=== PATIENT | male | born 1945 | race Caucasian/White ===

== ENCOUNTER 2017-09-14 17:01 | Emergency (ER) | payer MEDICARE, OTHER ==
[2017-09-14] MEDS ORDERED: Diltiazem IV* 5 MG/ML 5 ML VIAL (for loading dose/IV Push) (25 MG) IV PUSH ONE (17:46)
[2017-09-14] MEDS ORDERED: Aspirin TAB* 325 MG PO ONE (17:48)
[2017-09-14] MEDS ORDERED: Aspirin EC TAB* 81 MG TAB.EC ONE (17:55)
[2017-09-14] MEDS ORDERED: Aspirin EC TAB* 81 MG TAB.EC PO ONE (17:56)
[2017-09-14 18:07] LABS: ABS Basophils 0.1 10^3/ul (0-0.2); ABS Eosinophils 0.1 10^3/ul (0-0.6); ABS Monocytes 0.7 10^3/ul (0-0.8); ABS Neutrophils 5.7 10^3/ul (1.5-7.7); ABS Nucleated RBC 0 10^3/ul; Eosinophil % 1.5 % (0-6); Hematocrit 45 % (42-52); Hemoglobin 15.4 g/dl (14.0-18.0); Lymphocyte % 23.1 % (25-47); Mean Corpuscular HGB Conc 34 g/dl (31-36); Mean Corpuscular Hemoglobin 31 pg (27-31); Mean Corpuscular Volume 92 fL (80-94); Nucleated Red Blood Cells % 0.1; Platelet Count 165 10^3/ul (150-450); Red Blood Count 4.91 10^6/ul (4.00-5.40); Red Cell Distribution Width 14 % (10.5-15); White Blood Count 8.6 10^3/ul (3.5-10.8)
--- NOTE | 2017-09-14 18:10 | RAD ---
Indication: Shortness of breath. Palpitations. Comparison: February 10, 2013 CT. Technique: Upright AP 1755 hours Report: Elevated lung volumes. Small chronic RIGHT superior pleural plaque noted based on correlation with prior CT. No pulmonary infiltrate, suspicious focal pulmonary lesion, pleural effusion, pneumothorax. The heart, pulmonary vasculature, and mediastinal contours are unremarkable. IMPRESSION: Elevated lung volumes suggest potential obstructive lung disease. No acute cardiopulmonary process evident.
[2017-09-14 18:15] LABS: INR 0.97 (0.77-1.02)
[2017-09-14 18:28] LABS: EGFR Non-African American 79.3 (>60)
[2017-09-14] MEDS ORDERED: Metoprolol Tartrate TAB* 25 MG PO ONE ×2 (19:45→21:21)
[2017-09-14] MEDS ORDERED: Rivaroxaban TAB(*) 10 MG PO ONE (19:46)
--- NOTE | 2017-09-14 21:24 | ED ---
Satnam Chowdary Simon, scribed for Sridhar Deleon on 09/14/17 at 1820 . Palpitations / Dysrhythmia - HPI Summary HPI Summary: This patient is a 72 year old M presenting to [facility] with a chief complaint palpitations since 3 months ago. PMHx AL 14 years ago, 1 stent placed. Pt went to PCP for check-up, sent him to ED for sx. He denies edema, intermittent SOB with exertion. Pt denies recent stress test. Social Hx smoking, drinking. - History of Current Complaint Chief Complaint: EDDysrhythmPalp Hx Obtained From: Patient Onset/Duration: Lasting Weeks - 3 months Timing: Intermittent Episodes Lasting: Severity Initially: Mild Severity Currently: Mild Character: Fast, Irregular Aggravating: Exertion Associated Signs & Symptoms: Shortness of Breath - Allergy/Home Medications Allergies/Adverse Reactions: Allergies Allergy/AdvReac Type Severity Reaction Status Date / Time No Known Allergies Allergy Verified 02/10/13 08:35 PMH/Surg Hx/FS Hx/Imm Hx Endocrine/Hematology History: Denies: Hx Diabetes, Other Endocrine/Hematological Disorders Cardiovascular History: Reports: Hx Coronary Artery Disease, Hx Myocardial Infarction, Other Cardiovascular Problems/Disorders - cardiac stent Denies: Hx Congestive Heart Failure, Hx Hypertension Respiratory History: Denies: Other Respiratory Problems/Disorders GI History: Denies: Other GI Disorders History: Denies: Other Problems/Disorders Musculoskeletal History: Denies: Other Musculoskeletal History Sensory History: Denies: Hx Legally Blind, Hx Deafness, Other Sensory Impairments Opthamlomology History: Denies: Hx Legally Blind EENT History: Denies: Hx Deafness Neurological History: Denies: Other Neuro Impairments/Disorders Psychiatric History: Denies: Other Psychiatric Issues/Disorders - Surgical History Surgery Procedure, Year, and Place: appendics, heart stent Infectious Disease History: No Infectious Disease History: Denies: Traveled Outside the [place] in Last 30 Days - Family History Known Family History: Negative: Cardiac Disease, Hypertension, Diabetes - Social History Occupation: Employed Full-time Lives: Alone Alcohol Use: Yes Hx Substance Use: No Hx Tobacco Use: Yes Smoking Status (MU): Current Every Day Smoker Review of Systems Negative: Fever Positive: Palpitations - racing heart Positive: Shortness Of Breath - intermittent Negative: Edema All Other Systems Reviewed And Are Negative: Yes Physical Exam - Summary Physical Exam Summary: Appearance: Well appearing, no pain distress Skin: warm, dry, reflects adequate perfusion Head/face: normal Eyes: EOMI, GARY ENT: normal Neck: supple, non-tender Respiratory: CTA, breath sounds present Cardiovascular: irregularly irregular rythym, tachycardic, pulses symmetrical Abdomen: non-tender, soft Bowel: present Musculoskeletal: normal, strength/ROM intact Neuro: normal, sensory motor intact, A&Ox3 Triage Information Reviewed: Yes Vital Signs On Initial Exam: Initial Vitals Temp Pulse Resp BP Pulse Ox 98.9 F 129 22 90/72 97 09/14/17 17:12 09/14/17 17:12 09/14/17 17:12 09/14/17 17:12 09/14/17 17:12 Vital Signs Reviewed: Yes Diagnostics - Vital Signs Vital Signs Temp Pulse Resp BP Pulse Ox 09/14/17 17:31 143 15 131/81 97 09/14/17 17:12 98.9 F 129 22 90/72 97 - Laboratory Lab Results: Lab Results 09/14/17 09/14/17 09/14/17 Range/Units 17:56 17:56 17:56 WBC 8.6 (3.5-10.8) 10^3/ul RBC 4.91 (4.00-5.40) 10^6/ul Hgb 15.4 (14.0-18.0) g/dl Hct 45 (42-52) % MCV 92 (80-94) fL MCH 31 (27-31) pg MCHC 34 (31-36) g/dl RDW 14 (10.5-15) % Plt Count 165 (150-450) 10^3/ul MPV 10.0 (7.4-10.4) um3 Neut % (Auto) 66.1 (38-83) % Lymph % (Auto) 23.1 L (25-47) % Mcpherson % (Auto) 8.6 H (0-7) % Eos % (Auto) 1.5 (0-6) % Baso % (Auto) 0.7 (0-2) % Absolute Neuts (auto) 5.7 (1.5-7.7) 10^3/ul Absolute Lymphs (auto) 2.0 (1.0-4.8) 10^3/ul Absolute Monos (auto) 0.7 (0-0.8) 10^3/ul Absolute Eos (auto) 0.1 (0-0.6) 10^3/ul Absolute Basos (auto) 0.1 (0-0.2) 10^3/ul Absolute Nucleated RBC 0 10^3/ul Nucleated RBC % 0.1 INR (Anticoag Therapy) (0.77-1.02) APTT (26.0-36.3) seconds Sodium 137 (135-145) mmol/L Potassium 4.1 (3.5-5.0) mmol/L Chloride 106 (101-111) mmol/L Carbon Dioxide 23 (22-32) mmol/L Anion Gap 8 (2-11) mmol/L BUN 19 (6-24) mg/dL Creatinine 0.94 (0.67-1.17) mg/dL Est GFR ( Amer) 96.0 (>60) Est GFR (Non-Af Amer) 79.3 (>60) BUN/Creatinine Ratio 20.2 H (8-20) Glucose 95 (70-100) mg/dL Lactic Acid 1.0 (0.5-2.0) mmol/L Calcium 9.6 (8.6-10.3) mg/dL Magnesium 1.9 (1.9-2.7) mg/dL Total Bilirubin 0.70 (0.2-1.0) mg/dL AST 28 (13-39) U/L ALT 24 (7-52) U/L Alkaline Phosphatase 56 (34-104) U/L Troponin I 0.01 (<0.04) ng/mL B-Natriuretic Peptide ( - 100) pg/mL Total Protein 7.0 (6.4-8.9) g/dL Albumin 4.0 (3.2-5.2) g/dL Globulin 3.0 (2-4) g/dL Albumin/Globulin Ratio 1.3 (1-3) TSH 1.91 (0.34-5.60) mcIU/mL 09/14/17 09/14/17 09/14/17 Range/Units 17:56 17:56 20:35 WBC (3.5-10.8) 10^3/ul RBC (4.00-5.40) 10^6/ul Hgb (14.0-18.0) g/dl Hct (42-52) % MCV (80-94) fL MCH (27-31) pg MCHC (31-36) g/dl RDW (10.5-15) % Plt Count (150-450) 10^3/ul MPV (7.4-10.4) um3 Neut % (Auto) (38-83) % Lymph % (Auto) (25-47) % Mcpherson % (Auto) (0-7) % Eos % (Auto) (0-6) % Baso % (Auto) (0-2) % Absolute Neuts (auto) (1.5-7.7) 10^3/ul Absolute Lymphs (auto) (1.0-4.8) 10^3/ul Absolute Monos (auto) (0-0.8) 10^3/ul Absolute Eos (auto) (0-0.6) 10^3/ul Absolute Basos (auto) (0-0.2) 10^3/ul Absolute Nucleated RBC 10^3/ul Nucleated RBC % INR (Anticoag Therapy) 0.97 (0.77-1.02) APTT 31.4 (26.0-36.3) seconds Sodium (135-145) mmol/L Potassium (3.5-5.0) mmol/L Chloride (101-111) mmol/L Carbon Dioxide (22-32) mmol/L Anion Gap (2-11) mmol/L BUN (6-24) mg/dL Creatinine (0.67-1.17) mg/dL Est GFR ( Amer) (>60) Est GFR (Non-Af Amer) (>60) BUN/Creatinine Ratio (8-20) Glucose (70-100) mg/dL Lactic Acid (0.5-2.0) mmol/L Calcium (8.6-10.3) mg/dL Magnesium (1.9-2.7) mg/dL Total Bilirubin (0.2-1.0) mg/dL AST (13-39) U/L ALT (7-52) U/L Alkaline Phosphatase (34-104) U/L Troponin I 0.01 (<0.04) ng/mL B-Natriuretic Peptide 206 H ( - 100) pg/mL Total Protein (6.4-8.9) g/dL Albumin (3.2-5.2) g/dL Globulin (2-4) g/dL Albumin/Globulin Ratio (1-3) TSH (0.34-5.60) mcIU/mL Result Diagrams: 09/14/17 17:56 09/14/17 17:56 Lab Statement: Any lab studies that have been ordered have been reviewed, and results considered in the medical decision making process. - Radiology CXR Xray Interpretation: Positive (See Comments) Radiology Interpretation Completed By: Radiologist - Elevated lung volumes suggest potential obstructive lung disease. No acute cardiopulmonary process evident. Dr. Deleon has reviewed this report. - EKG 1744 Cardiac Rate: Tachycardia EKG Rhythm: Atrial Fibrillation ST Segment: Normal EKG Interpretation: RVR, AFib Re-Evaluation - Re-Evaluation First Eval Re-Evaluation Time: 21:10 Change: Improved - discussed discharge. Comment: discussed discharge. Course/Dx - Course Course Of Treatment: A 72-year-old M presents to the ED with a CC of palpitations for 3 months. (+) intermittent SOB with exertion. (-) edema. PMHx AL, stent placed 14 years ago, denies recent stress test. A CXR reveals elevated lung volumes suggest potential obstructive lung disease. No acute cardiopulmonary process evident. An EKG reveals tachycardia, AFib. In the ED course, pt was given ASA and diltiazem. Blood work/UA obtained. will refer the pt to dr velasquez cardiology - Diagnoses Provider Diagnoses: Atrial fibrillation, new onset - Physician Notifications Discussed Care Of Patient With: Jani Padilla Time Discussed With Above Provider: 19:45 Instructed by Provider To: Other - Dr. Padilla recommended 2nd trop, re- evealuation, discharge if trop negative. Discharge - Sign-Out/Discharge Documenting (check all that apply): Discharge/Admit/Transfer - discharge - Discharge Plan Condition: Stable Disposition: HOME Prescriptions: Metoprolol Tartrate TAB* [Lopressor TAB*] 25 mg PO BID #60 tab Rivaroxaban TAB(*) [Xarelto 20 mg] 20 mg PO DAILY #30 tab Patient Education Materials: A-fib (Atrial Fibrillation) (ED) Referrals: Douglas Rodriguez, [facility] [Primary Care Provider] - 3 Days Additional Instructions: RETURN TO EMERGENCY DEPARTMENT FOR NEW OR WORSENING SYMPTOMS. - Billing Disposition and Condition Condition: STABLE Disposition: Home The documentation as recorded by the Satnam tian Simon accurately reflects the service I personally performed and the decisions made by , Sridhar Deleon.
[2017-09-14 21:48] VITALS: BP 107/62
== END 2017-09-14 21:47 | disposition home or self-care (01) ==
LOC: ED 17:01
DX: I48.91 Unspecified atrial fibrillation (principal); F17.200 Nicotine dependence, unspecified, uncomplicated
CPT/HCPCS: 36415; 71045; 80053; 83605; 83735; 83880; 84443; 84484; 85025; 85610; 85730; 93005; 96374; 99283; A9270-GY

== ENCOUNTER 2017-11-10 22:06 | Inpatient (IN) | payer MEDICARE ==
--- OUTSIDE RECORDS SUMMARY | 2017-11-10 22:18 | XMS REPORT ---
:1945 External Reference #:[id number] Author Organization 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 twice a day Xarelto Active Tablets 20mg 30tabs 1 by mouth Maurice, 000 every day Mashelle, N.P. No Active Hx Unknown Medications 016 - 06/28/2 018 Augmentin Hx Tablets 875-125mg 20tabs 1 by mouth Michael, 016 - twice a Mashelle, day x 10 N.P. 016 days Viagra Hx Tablets 100mg 12tabs 1 po as Michael, 014 - directed Mashelle, N.P. 015 Immunizations CPT Code Status Date Vaccine Lot # [id number] Given 07/12/2014 Tdap (Adacel) Ages 7 And Above Only [id number] Vital Signs Date Vital Result Comment 10/15/2017 Body Temperature 98.2 F Weight 149.25 lb Heart Rate 52 /min BP Systolic 114 mmHg BP Diastolic 74 mmHg O2 % BldC Oximetry 97 % 09/14/2017 Body Temperature 98.1 F Weight 150.12 lb Heart Rate 110 /min BP Systolic 114 mmHg BP Diastolic 78 mmHg Height 68 inches 5'8" O2 % BldC Oximetry 97 % BMI (Body Mass Index) 22.8 kg/m2 09/04/2016 Body Temperature 97.9 F Weight 167.38 lb Heart Rate 58 /min BP Systolic 134 mmHg BP Diastolic 86 mmHg Height 67 inches 5'7" O2 % BldC Oximetry 98 % BMI (Body Mass Index) 26.2 kg/m2 08/29/2015 Body Temperature 98.2 F Weight 159.25 lb Heart Rate 62 /min BP Systolic 120 mmHg BP Diastolic 71 mmHg Height 67.5 inches 5'7.50" O2 % BldC Oximetry 97 % BMI (Body Mass Index) 24.6 kg/m2 Right Visual Acuity Distance 20/25 Contacts Left Visual Acuity Distance 20/25 Contacts 05/23/2015 Body Temperature 97.9 F Weight 164.00 lb Heart Rate 61 /min BP Systolic 136 mmHg BP Diastolic 86 mmHg 05/13/2015 Body Temperature 97.8 F Heart Rate 62 /min BP Systolic Recheck 103 mmHg RIGHT arm BP Diastolic Recheck 64 mmHg RIGHT arm 07/12/2014 Body Temperature 97.9 F Weight 159.12 lb Heart Rate 59 /min BP Systolic 117 mmHg BP Diastolic 76 mmHg Height 67 inches 5'7" O2 % BldC Oximetry 97 % BMI (Body Mass Index) 24.9 kg/m2 08/04/2013 Body Temperature 98.2 F Weight 155.50 lb Heart Rate 62 /min BP Systolic 147 mmHg BP Diastolic 94 mmHg O2 % BldC Oximetry 97 % 2013 Body Temperature 98.3 F Weight 153.50 lb Heart Rate 72 /min BP Systolic 124 mmHg BP Diastolic 78 mmHg O2 % BldC Oximetry 98 % 01/12/2013 Body Temperature 96.1 F Weight 154.00 lb Heart Rate 60 /min BP Systolic 130 mmHg BP Diastolic 78 mmHg Height 68 inches 5'8" O2 % BldC Oximetry 97 % BMI (Body Mass Index) 23.4 kg/m2 01/08/2012 Body Temperature 97.7 F Weight 156.12 lb Heart Rate 56 /min BP Systolic 110 mmHg BP Diastolic 78 mmHg Height 67 inches 5'7" O2 % BldC Oximetry 98 % BMI (Body Mass Index) 24.4 kg/m2 Results Test Date Test Result H/L Range Note Laboratory test finding 09/04/2016 PSA 2.530 ng/mL 0.000-4.000 1, 2 Lipid 09/04/2016 Cholesterol 169 mg/dL 50-199 1 Triglycerides 75 mg/dL 30-200 1 HDL 50 mg/dL 29-71 1, 3 Chol/ HDL Ratio 3.4 ratio Low 4.0-6.7 1 VLDL 15 mg/dL 2-29 1 LDL (Calc) 104 mg/dL High 20-99 1, 4 Laboratory test finding 09/04/2016 Hepatitis C Virus NONREACTIVE Nonreactive 1 Antibody Comprehensive Metabolic 09/04/2016 Sodium 137 mmol/L 135-146 1, 5 (CMP) Potassium 5.0 mmol/L 3.5-5.2 1 Chloride# 105 mmol/L 97-110 1, 6 Carbon Dioxide 25 mmol/L 24-34 1 Glucose 106 mg/dL High 70-105 1 BUN 20 mg/dL 6-26 1 Creatinine 0.9 mg/dL 0.5-1.4 1 Calcium 9.2 mg/dL 8.5-10.2 1 Total Protein 6.1 g/dL 6.0-8.0 1 Albumin 3.7 g/dL 3.6-4.9 1 Globulin 2.4 g/dL 2.0-3.5 1 A/G Ratio 1.5 Ratio 1.0-2.2 1 Total Bilirubin 0.4 mg/dL 0.1-1.3 1 Alkaline Phosphatase 59 U/L 24-140 1 Alt 21 U/L 3-42 1 Ast 28 U/L 8-42 1 Triny Egfr >60 >60 1, 7 Non Triny Egfr >60 >60 1, 8 Anion Gap 12 mmol/L 7-16 1, 9 Comprehensive Metabolic (CMP) 08/29/2015 Sodium 137 mmol/L 134-142 1 Potassium 4.1 mmol/L 3.5-5.2 1 Chloride 104 mmol/L 97-109 1 Carbon Dioxide 27 mmol/L 24-34 1 Glucose 111 mg/dL High 70-105 1 BUN 23 mg/dL 6-26 1 Creatinine 0.9 mg/dL 0.5-1.4 1 Calcium 9.0 mg/dL 8.5-10.2 1 Total Protein 6.3 g/dL 6.0-8.0 1 Albumin 3.8 g/dL 3.6-4.9 1 Globulin 2.5 g/dL 2.0-3.5 1 A/G Ratio 1.5 Ratio 1.0-2.2 1 Total Bilirubin 0.4 mg/dL 0.1-1.3 1 Alkaline Phosphatase 54 U/L 24-140 1 Alt 23 U/L 3-42 1 Ast 28 U/L 8-42 1 Anion Gap 10 mmol/L 6-14 1 Triny Egfr >60 >60 1, 10 Non Triny Egfr >60 >60 1, 11 Laboratory test finding 08/29/2015 PSA 2.170 ng/mL 0.000-4.000 1, 12 Lipid 08/29/2015 Cholesterol 167 mg/dL 50-199 1 Triglycerides 83 mg/dL 30-200 1 HDL 52 mg/dL 29-71 1, 13 Chol/ HDL Ratio 3.2 ratio Low 4.0-6.7 1 VLDL 17 mg/dL 2-29 1 LDL (Calc) 98 mg/dL 20-99 1, 14 Comprehensive Metabolic (CMP) 07/12/2014 Sodium 138 mmol/L 134-142 1 Potassium 4.7 mmol/L 3.5-5.2 1 Chloride 105 mmol/L 97-109 1 Carbon Dioxide 30 mmol/L 24-34 1 Glucose 87 mg/dL 70-105 1 BUN 18 mg/dL 6-26 1 Creatinine 0.8 mg/dL 0.5-1.4 1 Calcium 9.0 mg/dL 8.5-10.2 1 Total Protein 6.4 g/dL 6.0-8.0 1 Albumin 3.9 g/dL 3.6-4.9 1 Globulin 2.5 g/dL 2.0-3.5 1 A/G Ratio 1.6 Ratio 1.0-2.2 1 Total Bilirubin 0.5 mg/dL 0.1-1.3 1 Alkaline Phosphatase 62 U/L 24-140 1 Alt 27 U/L 3-42 1 Ast 27 U/L 8-42 1 Anion Gap 8 mmol/L 6-14 1 Triny Egfr >60 >60 1, 15 Non Triny Egfr >60 >60 1, 16 Lipid 07/12/2014 Cholesterol 186 mg/dL 50-199 1 Triglycerides 59 mg/dL 30-200 1 HDL 48 mg/dL 29-71 1, 17 Chol/ HDL Ratio 3.9 ratio Low 4.0-6.7 1 VLDL 12 mg/dL 2-29 1 LDL (Calc) 126 mg/dL High 20-99 1, 18 Laboratory test finding 07/12/2014 PSA 2.170 ng/mL 0.000-4.000 1, 19 CBC With Auto Diff 07/12/2014 WBC 5.8 K/uL 4.1-11.0 1 RBC 4.80 M/uL 4.60-6.10 1 Hemoglobin 14.6 gm/dL 13.5-18.0 1 Hematocrit 43.4 % 41.0-53.0 1 MCV 90.5 fL 80.0-97.0 1 MCH 30.3 pg 27.0-32.0 1 MCHC 33.5 g/dL 32.0-36.0 1 RDW 14.2 % 11.5-14.5 1 PLT Count 157 K/ul 140-400 1 Neutrophil 67.3 % 35.0-75.0 1 Lymphocyte 21.6 % 16.0-52.0 1 Monocyte 9.4 % 2.0-10.0 1 Eosinophil 0.9 % 0.0-5.0 1 Basophil 0.8 % 0.0-4.0 1 Abs Neutrophils 3.9 K/uL 2.1-8.0 1 Abs Lymphocytes 1.3 K/uL 0.8-5.5 1 Abmon 0.5 K/uL 0.1-1.0 1 Abs Eosinophils 0.1 K/uL 0.0-0.5 1 Abs Basophils 0.0 K/uL 0.0-0.3 1 CBC With Auto Diff 01/13/2013 WBC 6.7 K/uL 4.1-11.0 20 RBC 4.88 M/uL 4.00-5.40 20 Hemoglobin 15.0 gm/dL 12.0-16.0 20 Hematocrit 44.1 % 36.0-47.0 20 MCV 90.3 fL 80.0-97.0 20 MCH 30.6 pg 27.0-32.0 20 MCHC 33.9 g/dL 32.0-36.0 20 RDW 13.6 % 11.5-14.5 20 PLT Count 153 K/ul 140-400 20 Neutrophil 71.1 % 35.0-75.0 20 Lymphocyte 18.7 % 16.0-52.0 20 Monocyte 8.2 % 2.0-10.0 20 Eosinophil 1.2 % 0.0-5.0 20 Basophil 0.8 % 0.0-4.0 20 Abs Neutrophils 4.7 K/uL 2.1-8.0 20 Abs Lymphocytes 1.2 K/uL 0.8-5.5 20 Abmon 0.5 K/uL 0.1-1.0 20 Abs Eosinophils 0.1 K/uL 0.0-0.5 20 Abs Basophils 0.1 K/uL 0.0-0.3 20 Lipid 01/13/2013 Cholesterol 187 mg/dL 50-199 20 Triglycerides 50 mg/dL 30-200 20 HDL 52 mg/dL 35-85 20, 21 Chol/ HDL Ratio 3.6 ratio Low 3.7-5.6 20 VLDL 10 mg/dL 2-29 20 LDL (Calc) 125 mg/dL High 20-99 20, 22 Comprehensive Metabolic (CMP) 01/13/2013 Sodium 139 mmol/L 134-142 20 Potassium 5.5 No visible h <SEE NOTE> mmol/L High 3.5-5.2 20, 23 Chloride 105 mmol/L 97-109 20 Carbon Dioxide 33 mmol/L 24-34 20 Glucose 109 mg/dL High 70-105 20 BUN 16 mg/dL 6-26 20 Creatinine 0.8 mg/dL 0.5-1.4 20 Calcium 9.3 mg/dL 8.5-10.2 20 Total Protein 6.5 g/dL 6.0-8.0 20 Albumin 4.2 g/dL 3.6-4.9 20 Globulin 2.3 g/dL 2.0-3.5 20 A/G Ratio 1.8 Ratio 1.0-2.2 20 Total Bilirubin 0.4 mg/dL 0.1-1.3 20 Alkaline Phosphatase 58 U/L 24-140 20 Alt 23 U/L 3-42 20 Ast 28 U/L 8-42 20 Anion Gap 7 mmol/L 6-14 20 Triny Egfr >60 >60 20, 24 Non Triny Egfr >60 >60 20, 25 Laboratory test finding 01/13/2013 PSA 1.83 ng/mL 20, 26 Lipid 01/08/2012 Cholesterol 184 mg/dL 50-199 27 Triglycerides 77 mg/dL 30-200 27 HDL 51 mg/dL 29-71 27, 28 Chol/ HDL Ratio 3.6 ratio Low 4.0-6.7 27 VLDL 15 mg/dL 2-29 27 LDL (Calc) 118 mg/dL 20-129 27, 29 Laboratory test finding 01/08/2012 PSA 1.93 ng/mL 0.00-4.00 27, 30 Comprehensive Metabolic (CMP) 01/08/2012 Sodium 140 mmol/L 134-142 27 Potassium 5.2 mmol/L 3.5-5.2 27 Chloride 107 mmol/L 97-109 27 Carbon Dioxide 30 mmol/L 24-34 27 Glucose 98 mg/dL 70-105 27 BUN 19 mg/dL 6-26 27 Creatinine 0.9 mg/dL 0.5-1.4 27 Calcium 9.5 mg/dL 8.5-10.2 27 Total Protein 6.5 g/dL 6.0-8.0 27 Albumin 4.1 g/dL 3.6-4.9 27 Globulin 2.4 g/dL 2.0-3.5 27 A/G Ratio 1.7 Ratio 1.0-2.2 27 Total Bilirubin 0.6 mg/dL 0.1-1.3 27 Alkaline Phosphatase 51 U/L 24-140 27 Alt 16 U/L 3-42 27 Ast 24 U/L 8-42 27 Anion Gap 8 mmol/L 6-14 27 Triny Egfr >60 >60 27, 31 Non Triny Egfr >60 >60 27, 32 CBC With Auto Diff 01/08/2012 WBC 6.8 K/uL 4.1-11.0 27 RBC 4.73 M/uL 4.60-6.10 27 Hemoglobin 14.3 gm/dL 13.5-18.0 27 Hematocrit 43.5 % 41.0-53.0 27 MCV 91.9 fL 80.0-97.0 27 MCH 30.2 pg 27.0-32.0 27 MCHC 32.9 g/dL 32.0-36.0 27 RDW 13.8 % 11.5-14.5 27 PLT Count 155 K/ul 140-400 27 Neutrophil 61.0 % 35.0-75.0 27 Lymphocyte 28.0 % 16.0-52.0 27 Monocyte 9.4 % 2.0-10.0 27 Eosinophil 1.1 % 0.0-5.0 27 Basophil 0.5 % 0.0-4.0 27 Abs Neutrophils 4.1 K/uL 2.1-8.0 27 Abs Lymphocytes 1.9 K/uL 0.8-5.5 27 Abs Monocytes 0.6 K/uL 0.1-1.0 27 Abs Eosinophils 0.1 K/uL 0.0-0.5 27 Abs Basophils 0.0 K/uL 0.0-0.3 27 1 This sample is drawn by:[facility] 2 Beginning 05/17/06 PSA values assayed at [facility] uses chemiluminescence methodology manufactured by [employer] for use on the DXI analyzer. Values obtained with different assay methods or kits can not be used interchangeably. Serum PSA measurement is not an absolute test for malignancy. The PSA value should be used in conjunction with information available from clinical evaluation and other diagnostic procedures. 3 Per NCEP ATP III Guidelines: Results lower than 40 mg/dL are suggestive of increased risk for coronary artery disease. Results > or=to 60 mg/dL are considered a negative risk factor. 4 Per NCEP ATP III Guidelines: Normal Population <130 Patients with medical conditions: CHD/DM Optimal: <100 Borderline high: 130-159 High: 160-189 Very high: >189 5 Updated reference range on new analyzer 6 Updated reference range on new analyzer 7 Concerning GFR Guidelines for Americans: Normal function or mild renal disease, if clinically at risk: >/=60 mL/min Moderately decreased: 30-59 Severely decreased: 15-29 Renal failure: <15 8 Concerning GFR Guidelines: Normal function or mild renal disease, if clinically at risk: >/=60 mL/min Moderately decreased: 30-59 Severely decreased: 15-29 Renal failure: <15 Glomerular Filtration Rate (GFR) is estimated based on the MDRD equation, which assumes a steady state for creatinine as recommended by the National Kidney Disease Education Program in conjunction with the National Institutes of Health and the National Kidney Foundation. Clinical conditions in which it may be necessary to measure GFR by using clearance methods include extremes of age and body size, severe malnutrition or obesity, diseases of skeletal muscle, paraplegia or quadriplegia, vegetarian diet, rapidly changing kidney function, and calculation of the dose of potentially toxic drugs that are excreted by the kidneys. 9 Updated reference range on new analyzer 10 Concerning GFR Guidelines for Americans: Normal function or mild renal disease, if clinically at risk: >/=60 mL/min Moderately decreased: 30-59 Severely decreased: 15-29 Renal failure: <15 11 Concerning GFR Guidelines: Normal function or mild renal disease, if clinically at risk: >/=60 mL/min Moderately decreased: 30-59 Severely decreased: 15-29 Renal failure: <15 Glomerular Filtration Rate (GFR) is estimated based on the MDRD equation, which assumes a steady state for creatinine as recommended by the National Kidney Disease Education Program in conjunction with the National Institutes of Health and the National Kidney Foundation. Clinical conditions in which it may be necessary to measure GFR by using clearance methods include extremes of age and body size, severe malnutrition or obesity, diseases of skeletal muscle, paraplegia or quadriplegia, vegetarian diet, rapidly changing kidney function, and calculation of the dose of potentially toxic drugs that are excreted by the kidneys. 12 Beginning 05/17/06 PSA values assayed at [facility] uses chemiluminescence methodology manufactured by [employer] for use on the DXI analyzer. Values obtained with different assay methods or kits can not be used interchangeably. Serum PSA measurement is not an absolute test for malignancy. The PSA value should be used in conjunction with information available from clinical evaluation and other diagnostic procedures. 13 Per NCEP ATP III Guidelines: Results lower than 40 mg/dL are suggestive of increased risk for coronary artery disease. Results > or=to 60 mg/dL are considered a negative risk factor. 14 Per NCEP ATP III Guidelines: Normal Population <130 Patients with medical conditions: CHD/DM Optimal: <100 Borderline high: 130-159 High: 160-189 Very high: >189 15 Concerning GFR Guidelines for Americans: Normal function or mild renal disease, if clinically at risk: >/=60 mL/min Moderately decreased: 30-59 Severely decreased: 15-29 Renal failure: <15 16 Concerning GFR Guidelines: Normal function or mild renal disease, if clinically at risk: >/=60 mL/min Moderately decreased: 30-59 Severely decreased: 15-29 Renal failure: <15 Glomerular Filtration Rate (GFR) is estimated based on the MDRD equation, which assumes a steady state for creatinine as recommended by the National Kidney Disease Education Program in conjunction with the National Institutes of Health and the National Kidney Foundation. Clinical conditions in which it may be necessary to measure GFR by using clearance methods include extremes of age and body size, severe malnutrition or obesity, diseases of skeletal muscle, paraplegia or quadriplegia, vegetarian diet, rapidly changing kidney function, and calculation of the dose of potentially toxic drugs that are excreted by the kidneys. 17 Per NCEP ATP III Guidelines: Results lower than 40 mg/dL are suggestive of increased risk for coronary artery disease. Results > or=to 60 mg/dL are considered a negative risk factor. 18 Per NCEP ATP III Guidelines: Normal Population <130 Patients with medical conditions: CHD/DM Optimal: <100 Borderline high: 130-159 High: 160-189 Very high: >189 19 Beginning 05/17/06 PSA values assayed at [facility] uses an EIA methodology manufactured by [employer] for use on the DXI analyzer. Values obtained with different assay methods or kits can not be used interchangeably. Serum PSA measurement is not an absolute test for malignancy. The PSA value should be used in conjunction with information available from clinical evaluation and other diagnostic procedures. 20 [employer] This sample is drawn by:[facility] 21 Per NCEP ATP III Guidelines: Results lower than 40 mg/dL are suggestive of increased risk for coronary artery disease. Results > or=to 60 mg/dL are considered a negative risk factor. 22 Per NCEP ATP III Guidelines: Normal Population <130 Patients with medical conditions: CHD/DM Optimal: <100 Borderline high: 130-159 High: 160-189 Very high: >189 23 5.5 No visible hemolysis. 24 Concerning GFR Guidelines for Americans: Normal function or mild renal disease, if clinically at risk: >/=60 mL/min Moderately decreased: 30-59 Severely decreased: 15-29 Renal failure: <15 25 Concerning GFR Guidelines: Normal function or mild renal disease, if clinically at risk: >/=60 mL/min Moderately decreased: 30-59 Severely decreased: 15-29 Renal failure: <15 Glomerular Filtration Rate (GFR) is estimated based on the MDRD equation, which assumes a steady state for creatinine as recommended by the National Kidney Disease Education Program in conjunction with the National Institutes of Health and the National Kidney Foundation. Clinical conditions in which it may be necessary to measure GFR by using clearance methods include extremes of age and body size, severe malnutrition or obesity, diseases of skeletal muscle, paraplegia or quadriplegia, vegetarian diet, rapidly changing kidney function, and calculation of the dose of potentially toxic drugs that are excreted by the kidneys. 26 Beginning 05/17/06 PSA values assayed at [facility] uses an EIA methodology manufactured by [employer] for use on the DXI analyzer. Values obtained with different assay methods or kits can not be used interchangeably. Serum PSA measurement is not an absolute test for malignancy. The PSA value should be used in conjunction with information available from clinical evaluation and other diagnostic procedures. 27 This sample is drawn by:[facility] 28 Per NCEP ATP III Guidelines: Results lower than 40 mg/dL are suggestive of increased risk for coronary artery disease. Results > or=to 60 mg/dL are considered a negative risk factor. 29 Per NCEP ATP III Guidelines: Optimal: <100 Near optimal: 100-129 Borderline high: 130-159 High: 160-189 Very high: >189 30 Beginning 05/17/06 PSA values assayed at [facility] uses an EIA methodology manufactured by [employer] for use on the DXI analyzer. Values obtained with different assay methods or kits can not be used interchangeably. Serum PSA measurement is not an absolute test for malignancy. The PSA value should be used in conjunction with information available from clinical evaluation and other diagnostic procedures. 31 Concerning GFR Guidelines for Americans: Normal function or mild renal disease, if clinically at risk: >/=60 mL/min Moderately decreased: 30-59 Severely decreased: 15-29 Renal failure: <15 32 Concerning GFR Guidelines: Normal function or mild renal disease, if clinically at risk: >/=60 mL/min Moderately decreased: 30-59 Severely decreased: 15-29 Renal failure: <15 Glomerular Filtration Rate (GFR) is estimated based on the MDRD equation, which assumes a steady state for creatinine as recommended by the National Kidney Disease Education Program in conjunction with the National Institutes of Health and the National Kidney Foundation. Clinical conditions in which it may be necessary to measure GFR by using clearance methods include extremes of age and body size, severe malnutrition or obesity, diseases of skeletal muscle, paraplegia or quadriplegia, vegetarian diet, rapidly changing kidney function, and calculation of the dose of potentially toxic drugs that are excreted by the kidneys. Procedures Date CPT Code Description Status 09/14/2017 26086 Electrocardiogram Complete Completed 05/13/2015 23535 Repair Superfic Wound < 2.6CM Completed Scalp/Neck/Axil/Genit/Trunk/Extr 01/12/2013 59768 Visual Screening Test Completed 01/08/2012 17582 Electrocardiogram Complete Completed Encounters Type Date Location Provider CPT E/M Dx Office Visit 09/14/2017 3:15p Douglas Jacques, N.P. G0439 Z00.01 I48.91 R53.83 R63.4 Office Visit 09/04/2016 8:30a Douglas Jacques, N.P. G0439 Z00.8 Z11.59 Z13.220 Z12.5 D17.0 Z23 Z72.89 Office Visit 08/29/2015 1:45p Douglas Jacques, N.P. G0439 Z13.220 Z12.5 E78.2 Z00.8 Office Visit 05/23/2015 8:45a Douglas Jacques, N.P. 96083 S61.412D Office Visit 07/12/2014 1:15p Douglas Jacques, N.P. G0439 780.79 V77.91 V76.44 V06.1 Office Visit 08/04/2013 8:30a Douglas Jacques, N.P. 60882 780.93 Office Visit 2013 1:15p Douglas Jacques, N.P. 02765 302.72 Office Visit 01/08/2012 9:00a Douglas Jacques, N.P. 22970 780.79 V76.44 V77.91 V70.0 Plan of Care 10/15/2017 - Douglas Rodriguez, N.P.R51 HeadacheComments:most likely due to metoprololtylenol, report increasing pain or changing ccexrciuxiythzaM59.1 Bradycardia, unspecifiedComments:cut metoprolol to 12.5mg bid and drink plenty of fluids and cont to monitor B/P and pulserecheck 1 weekI48.91 Unspecified atrial fibrillationComments:pt intends to f/u with cardiology as scheduled in October
--- NOTE | 2017-11-10 23:12 | ED ---
Altered Mental Status - HPI Summary HPI Summary: Pt is a 72 year old male who presents to the ED with his daughter. He developed AFib back in March, he now complains of dull headaches that are worse with movement, he gets them every day and they have been going on for a while. Per daughter, he is not himself, often forgets what hes doing, does not remember what to do at his job where hes been for 48 years, zones out all the time, has mild incontinence issues, has bouts of dizziness, is favoring his R side, and is limping. Per daughter, he told her he had a neck injury a couple months ago. Pt denies vision problems, hearing problems N/V, abd pain, decreased appetite, chest pain. Pt reports urgency with urination, some trouble with coordination, and that his dizziness is worse when he closes his eyes. Also has a rash on his L hand present for 3 months. 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 Timing: Constant, Lasting Weeks Severity Initially: Mild Severity Currently: Mild Associated Signs And Symptoms: Positive: Dizziness, Weakness - Allergies/Home Medications Allergies/Adverse Reactions: Allergies Allergy/AdvReac Type Severity Reaction Status Date / Time No Known Allergies Allergy Verified 11/10/17 22:12 Home Medications: Home Medications Metoprolol Tartrate TAB* [Lopressor TAB*] 12.5 mg PO BID 11/11/17 [History Confirmed 11/10/17] PMH/Surg Hx/FS Hx/Imm Hx Previously Healthy: No Endocrine/Hematology History: Denies: Hx Diabetes, Other Endocrine/Hematological Disorders Cardiovascular History: Reports: Hx Coronary Artery Disease, Hx Myocardial Infarction, Other Cardiovascular Problems/Disorders - cardiac stent Denies: Hx Congestive Heart Failure, Hx Hypertension Respiratory History: Denies: Other Respiratory Problems/Disorders GI History: Denies: Other GI Disorders History: Denies: Other Problems/Disorders Musculoskeletal History: Reports: Other Musculoskeletal History - neck injury a couple of months ago Sensory History: Denies: Hx Legally Blind, Hx Deafness, Other Sensory Impairments Opthamlomology History: Denies: Hx Legally Blind, Other Sensory Impairments Neurological History: Denies: Other Neuro Impairments/Disorders Psychiatric History: Denies: Other Psychiatric Issues/Disorders - Surgical History Surgery Procedure, Year, and Place: appendics, heart stent Infectious Disease History: No Infectious Disease History: Denies: Traveled Outside the [place] in Last 30 Days - Family History Known Family History: Negative: Cardiac Disease, Hypertension, Diabetes - Social History 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 Lives: With Family Alcohol Use: None Hx Substance Use: No Substance Use Type: Reports: None Hx Tobacco Use: Yes Smoking Status (MU): Current Every Day Smoker Review of Systems Negative: Fever Eyes: Negative Negative: Chest Pain Negative: Abdominal Pain, Vomiting, Nausea Positive: incontinence, urgency Neurological: Other - dizziness Positive: Headache - daily, dull, Weakness All Other Systems Reviewed And Are Negative: Yes Physical Exam - Summary Physical Exam Summary: Appearance: Well-appearing, Well-nourished, lying in bed comfortable Skin: Warm, dry, no obvious rash Eyes: sclera anicteric, no conjunctival pallor ENT: mucous membranes moist Neck: deferred Respiratory: No signs of respiratory distress Cardiovascular: Appears well perfused, pulses are nml Abdomen: deferred Musculoskeletal: Moving all 4 extremities without obvious discomfort Neurological: Awake and alert, mentation is normal, speech is fluent and appropriate, no fine motor ataxia, no focal neural deficit, nash based gait, cranial nerves are normal. Psychiatric: affect is normal, does not appear anxious or depressed Triage Information Reviewed: Yes Vital Signs On Initial Exam: Initial Vitals Temp Pulse Resp BP Pulse Ox 98.1 F 58 18 147/88 97 11/10/17 22:08 11/10/17 22:08 11/10/17 22:08 11/10/17 22:08 11/10/17 22:08 Vital Signs Reviewed: Yes Diagnostics - Vital Signs Vital Signs Temp Pulse Resp BP Pulse Ox 11/10/17 22:08 98.1 F 58 18 147/88 97 - Laboratory Result Diagrams: 11/11/17 06:18 11/11/17 06:18 Lab Statement: Any lab studies that have been ordered have been reviewed, and results considered in the medical decision making process. - CT Brain CT Interpretation: Positive (See Comments) - There is a large acute subdural hematoma greatest thickness 2.[address] Interpretation Completed By: Radiologist - ED physician reviewed this radiology report. Altered Mental Statu Course/Dx - Diagnoses Provider Diagnoses: Subdural hematoma, Medication induced coagulopathy Discharge - Sign-Out/Discharge Documenting (check all that apply): Patient Departure - Discharge Plan Condition: Guarded Disposition: ADMITTED TO [facility] - Billing Disposition and Condition Condition: GUARDED Disposition: Admitted to [facility] - Attestation Statements Document Initiated by Michelinee: Yes Documenting Scribe: Shital Chavez Provider For Whom Emaniibe is Documenting (Include Credential): Dwain Camacho MD. Scribe Attestation: Shital Chowdary, michelineed for Dwain Camacho MD. on 11/12/17 at 1837. Scribe Documentation Reviewed: Yes Provider Attestation: The documentation as recorded by the Shital tian accurately reflects the service I personally performed and the decisions made by Dwain bill MD. Consult Consult: Dwain Camacho spoke with Jani Brown and Dr. Efrain Smallwood. Dr. Smallwood wants the patient in the OR as soon as possible, patient will be admitted to [facility] [place].
[2017-11-10 23:13] LABS: ABS Basophils 0.1 10^3/ul (0-0.2); ABS Eosinophils 0.1 10^3/ul (0-0.6); ABS Lymphocytes 1.6 10^3/ul (1.0-4.8); ABS Monocytes 0.7 10^3/ul (0-0.8); ABS Neutrophils 5.8 10^3/ul (1.5-7.7); ABS Nucleated RBC 0 10^3/ul; Eosinophil % 1.4 % (0-6); Hematocrit 41 % (42-52); Lymphocyte % 18.7 % (25-47); Mean Corpuscular HGB Conc 34 g/dl (31-36); Mean Corpuscular Hemoglobin 32 pg (27-31); Mean Corpuscular Volume 93 fL (80-94); Mean Platelet Volume 10.2 um3 (7.4-10.4); Nucleated Red Blood Cells % 0; Platelet Count 145 10^3/ul (150-450); Red Blood Count 4.42 10^6/ul (4.00-5.40); Red Cell Distribution Width 14 % (10.5-15); White Blood Count 8.3 10^3/ul (3.5-10.8)
[2017-11-10 23:22] LABS: INR 1.58 (0.77-1.02)
[2017-11-10 23:35] LABS: EGFR Non-African American 80.3 (>60)
[2017-11-10] MEDS ORDERED: Charcoal 50 GM/Sorbitol* 50 GM/240 ML BTL PO ONE (23:37)
[2017-11-10] MEDS ORDERED: Tranexamic Acid 1,000 MG/10 ML 1,000 MG in NS 0.9% 100 ML* 100 ML IV ONE (23:40)
[2017-11-10] MEDS ORDERED: NS 0.9% 100 ML* 100 ML ONE (23:44)
--- NOTE | 2017-11-10 23:44 | RAD ---
EXAM: CT Head Without Intravenous Contrast CLINICAL HISTORY: 72 years old, male; Signs and symptoms; Dizziness and syncope and collapse; Additional info: ADITI ORDONEZ in august pt passed out and hit his head after starting a new medication for afib /pt is on blood thinners currently TECHNIQUE: Axial computed tomography images of the head/brain without intravenous contrast. All CT scans at this facility use at least one of these dose optimization techniques: automated exposure control; mA and/or kV adjustment per patient size (includes targeted exams where dose is matched to clinical indication); or iterative reconstruction. COMPARISON: No relevant prior studies available. FINDINGS: Brain: There is a large acute left subdural hematoma greatest thickness 2.3 cm over the frontal temporal and parietal lobes with a moderate right subdural hematoma greatest thickness 7 mm over parietal lobe. There is midline shift left to right of 10 mm at level of the distorted lateral ventricles. There is mild effacement of the basilar cisterns. Chronic small vessel ischemic type change. Ventricles: Unremarkable. No ventriculomegaly. Bones/joints: Unremarkable. No acute fracture. Soft tissues: Unremarkable. Sinuses: Unremarkable as visualized. No acute sinusitis. Mastoid air cells: Unremarkable as visualized. No mastoid effusion. IMPRESSION: There is a large acute left subdural hematoma greatest thickness 2.3 cm over the frontal temporal and parietal lobes with a moderate right subdural hematoma greatest thickness 7 mm over parietal lobe. There is midline shift left to right of 10 mm at level of the distorted lateral ventricles. There is mild effacement of the basilar cisterns.
[2017-11-11] MEDS ORDERED: Phytonadione 10 mg in 50 mL NS over 30 min IV STA (00:08)
[2017-11-11] MEDS ORDERED: Ondansetron ODT TAB* 4 MG PO PRN (00:18)
[2017-11-11] MEDS ORDERED: Acetaminophen SUPP* 650 MG SUPP PR PRN (00:18)
[2017-11-11] MEDS ORDERED: NS 0.9% 1000 ML* 1,000 ML IV SCH (00:30)
[2017-11-11 00:54] LABS: Urine Appearance Clear; Urine Blood Negative (Negative); Urine Color Yellow; Urine Ketones Negative (Negative); Urine Protein Negative (Negative); Urine Specific Gravity 1.015 (1.010-1.030); Urine Urobilinogen Negative (Negative)
--- NOTE | 2017-11-11 00:56 | HP ---
H&P (Free Text) History and Physical: PCP: Michael Bey NP Neurosurgery: Clay Smallwood MD Date/Time: 11/10/2017 0010 CC: headache HPI: Mr Dooley is a 72YO male HX AFIB on rivaroxaban who reports getting up in the morning around August 29 and suddenly passing out, striking his head. He is unaware how long he was out and did not seek medical evaluation. Since that time he has had a continuous headache and reports his co-workers concern that he hasn't been himself. The headache is worse with ROM of the head. He has felt generalized fatigue, but denies focal W/N/T, change in speech/swallow/vision, or other issues. His daughter reported to ED that he has been favoring his R- side, been forgetful, developed some mild urinary incontinence issues, and been having spells of "zoning out". ED evaluation is notable for B L>R subdural hematoma with 10mm L to R shift. The L hematoma appears acute. Clay Smallwood MD neurosurgery has been consulted and wishes to take him to the OR as soon as possible. His last meal and dose of rivaroxaban 20mg was ~1800. He has been given activated charcoal and TXA. I have further advised STAT K-centra and called pharmacy to facilitate this administration. I spoke with Clay Fraser MD hematology who recommended a minimum of 30-60minutes post-administration prior to surgery and Dr Smallwood has been apprised of this. Otherwise, Mr Dooley has a HX of CAD/stent, but denies any recent chest pain, SOB, or exertional symptoms. Given the emergent nature of his condition, no further cardiac evaluation is recommended. 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 Father passed at 97 2nd "natural causes". ROS: as above, otherwise reviewed and all were negative vitals: Vital Signs Temp 36.7 C 11/10/17 22:08 Pulse 48 11/11/17 00:41 Resp 18 11/11/17 00:41 BP 117/70 11/11/17 00:41 Pulse Ox 97 11/11/17 00:41 Intake & Output 11/10/17 11/10/17 11/11/17 11:59 23:59 11:59 Intake Total 100 Output Total 340 Balance -240 Weight 65.771 kg Intake: IV Fluids 100 Output: Urine 340 Constitutional: NAD, normally developed, well-nourished white male HEENM: atraumatic; sclera/conjunctiva: anicteric/clear; blephara: normal; hearing: clinically intact; oropharynx: clear, mucosa moist Neck: soft tissue: non-tender; thyroid: normal Pulmonary: clear to auscultation bilaterally, good aeration, no accessory muscle use CV: BR/RR, normal S1S2, no carotid bruit, no jugular venous distention, 2+ B DP/ PT, no edema Abdominal: soft, non-distended, non-tender, no rebound/guarding/rigidity, normoactive bowel sounds, no hepatosplenomegaly or masses, no costovertebral angle tenderness Musculoskeletal: general: grossly intact, non-tender Integumental: normal appearance and texture of exposed skin Neurological cranial nerves III/IV/: symmetric light reflex, EOMI/PERRLA V: intact facial sensation & mastication VII: intact facial symmetry VIII: hearing clinically intact IX/X: symmetric palatal motion, no dysarthria XII: midline tongue protrusion, normal voice articulation motor: R-handed LUE: 4+/5 proximally, distally, & creative project manager strength RUE: 4+/5 proximally, distally, & creative project manager strength LLE: 4+/5 proximally & distally RLE: 4+/5 proximally & distally sensory crude touch: intact globally Psychiatric orientation: AA&O to PPS affect: calm mood: pleasant eye contact: good content: reliable responses: timely insight: fair Testing: Lab Results 11/10/17 11/10/17 11/10/17 Range/Units 23:05 23:05 23:05 WBC (3.5-10.8) 10^3/ul RBC (4.00-5.40) 10^6/ul Hgb (14.0-18.0) g/dl Hct (42-52) % MCV (80-94) fL MCH (27-31) pg MCHC (31-36) g/dl RDW (10.5-15) % Plt Count (150-450) 10^3/ul MPV (7.4-10.4) um3 Neut % (Auto) (38-83) % Lymph % (Auto) (25-47) % Gulf % (Auto) (0-7) % Eos % (Auto) (0-6) % Baso % (Auto) (0-2) % Absolute Neuts (auto) (1.5-7.7) 10^3/ul Absolute Lymphs (auto) (1.0-4.8) 10^3/ul Absolute Monos (auto) (0-0.8) 10^3/ul Absolute Eos (auto) (0-0.6) 10^3/ul Absolute Basos (auto) (0-0.2) 10^3/ul Absolute Nucleated RBC 10^3/ul Nucleated RBC % INR (Anticoag Therapy) 1.58 H (0.77-1.02) APTT 38.6 H (26.0-36.3) seconds Sodium 137 (135-145) mmol/L Potassium 4.5 (3.5-5.0) mmol/L Chloride 107 (101-111) mmol/L Carbon Dioxide 26 (22-32) mmol/L Anion Gap 4 (2-11) mmol/L BUN 25 H (6-24) mg/dL Creatinine 0.93 (0.67-1.17) mg/dL Est GFR ( Amer) 97.2 (>60) Est GFR (Non-Af Amer) 80.3 (>60) BUN/Creatinine Ratio 26.9 H (8-20) Glucose 97 (70-100) mg/dL Calcium 9.2 (8.6-10.3) mg/dL Total Bilirubin 0.40 (0.2-1.0) mg/dL AST 25 (13-39) U/L ALT 18 (7-52) U/L Alkaline Phosphatase 68 (34-104) U/L Ammonia 55 H (16-53) mcmol/L Troponin I 0.00 (<0.04) ng/mL C-Reactive Protein 2.37 (<8.01) mg/L Total Protein 6.5 (6.4-8.9) g/dL Albumin 3.9 (3.2-5.2) g/dL Globulin 2.6 (2-4) g/dL Albumin/Globulin Ratio 1.5 (1-3) / Range/Units 23:06 WBC 8.3 (3.5-10.8) 10^3/ul RBC 4.42 (4.00-5.40) 10^6/ul Hgb 14.0 (14.0-18.0) g/dl Hct 41 L (42-52) % MCV 93 (80-94) fL MCH 32 H (27-31) pg MCHC 34 (31-36) g/dl RDW 14 (10.5-15) % Plt Count 145 L (150-450) 10^3/ul MPV 10.2 (7.4-10.4) um3 Neut % (Auto) 70.4 (38-83) % Lymph % (Auto) 18.7 L (25-47) % Gulf % (Auto) 8.8 H (0-7) % Eos % (Auto) 1.4 (0-6) % Baso % (Auto) 0.7 (0-2) % Absolute Neuts (auto) 5.8 (1.5-7.7) 10^3/ul Absolute Lymphs (auto) 1.6 (1.0-4.8) 10^3/ul Absolute Monos (auto) 0.7 (0-0.8) 10^3/ul Absolute Eos (auto) 0.1 (0-0.6) 10^3/ul Absolute Basos (auto) 0.1 (0-0.2) 10^3/ul Absolute Nucleated RBC 0 10^3/ul Nucleated RBC % 0 INR (Anticoag Therapy) (0.77-1.02) APTT (26.0-36.3) seconds Sodium (135-145) mmol/L Potassium (3.5-5.0) mmol/L Chloride (101-111) mmol/L Carbon Dioxide (22-32) mmol/L Anion Gap (2-11) mmol/L BUN (6-24) mg/dL Creatinine (0.67-1.17) mg/dL Est GFR ( Amer) (>60) Est GFR (Non-Af Amer) (>60) BUN/Creatinine Ratio (8-20) Glucose (70-100) mg/dL Calcium (8.6-10.3) mg/dL Total Bilirubin (0.2-1.0) mg/dL AST (13-39) U/L ALT (7-52) U/L Alkaline Phosphatase (34-104) U/L Ammonia (16-53) mcmol/L Troponin I (<0.04) ng/mL C-Reactive Protein (<8.01) mg/L Total Protein (6.4-8.9) g/dL Albumin (3.2-5.2) g/dL Globulin (2-4) g/dL Albumin/Globulin Ratio (1-3) ECG, personally reviewed: ordered, pending CXR, personally reviewed: no acute process CT brain WO, personally reviewed: IMPRESSION: There is a large acute left subdural hematoma greatest thickness 2.3 cm over the frontal temporal and parietal lobes with a moderate right subdural hematoma greatest thickness 7 mm over parietal lobe. There is midline shift left to right of 10 mm at level of the distorted lateral ventricles. There is mild effacement of the basilar cisterns. Impression: 72M with L>R SDH 2nd fall ~08/29/2017 with acute L SDH w/ midline shift Neurologic L>R SDH w/ midline shift on rivaroxaban : K-centra administration complete at 0050 : J MD Cl neurosurgery consulted, planning OR tonight : supplemental oxygen : given activated charcoal & TXA : last meal & rivaroxaban dose ~1800 : supportive care Cardiovascular HX CAD/stent : no active symptomotology AFIB : d/c rivaroxaban : continue metoprolol for rate control Pulmonary no acute/chronic issues Infectious Disease no suspected infectious burden Gastroenterology pantoprazole IV GI prophylaxis Renal normal function Hematologic rivaroxaban coagulopathy : reversed as above Lines 18G B anticubital peripheral IVs beavers catheter Admission Rational: inpatient for SDH drainage; critical condition DVTp: SCDs, no anticoagulation 2nd SDH Code Status: full HCP: daughter, Allie Critical Care time: 60minutes with >50% spent at the bedside obtaining a history , performing the examination, advising of diagnosis & treatment options along with risks/benefits/reasoning; remainder spent discussing with ER MD, neurosurgery, hematology, reviewing labs and radiology exams, documentation
[2017-11-11] MEDS ORDERED: Propofol* 10 MG/ML 20 ML BTL IV PUSH ONE (01:26)
[2017-11-11] MEDS ORDERED: Remifentanil* 2 MG VIAL ONE (01:26)
[2017-11-11] MEDS ORDERED: Midazolam* 1 MG/ML 5 ML VIAL (5 MG) ONE (01:26)
[2017-11-11] MEDS ORDERED: EPHEDrine (Pressors)* 50 MG/ML VIAL ONE (01:26)
[2017-11-11] MEDS ORDERED: Rocuronium* 10 MG/ML VIAL ONE (01:26)
[2017-11-11] MEDS ORDERED: Propofol* 500 MG/50 ML BTL ONE (01:26)
[2017-11-11] MEDS ORDERED: Lidocaine 2% PF * 5 ML VIAL ONE ×2 (01:26→03:27)
[2017-11-11] MEDS ORDERED: Ondansetron INJ* 2 MG/ML VIAL ONE ×2 (01:26→02:11)
[2017-11-11] MEDS ORDERED: Phenylephrine INJ* 10 MG/ML 1 ML VIAL (10 MG) ONE (01:26)
[2017-11-11] MEDS ORDERED: fentaNYL* 50 MCG/ML 2 ML VIAL (100 MCG VIAL) ONE ×2 (01:26→03:50)
[2017-11-11] MEDS ORDERED: Dexamethasone IV* 4 MG/ML 1 ML (4 MG) ONE (01:26)
[2017-11-11] MEDS ORDERED: Bacitracin IV* 50,000 UNITS INJ ONE (01:27)
[2017-11-11] MEDS ORDERED: Thrombin 5,000 UNITS* 1 APPLIC KIT - topical use - TOPICAL ONE (01:27)
[2017-11-11] MEDS ORDERED: Lidocaine 1% MPF wEPI 200,000* 30 ML SDV ONE (01:27)
[2017-11-11] MEDS ORDERED: Mannitol 25% (12.5 GM) 50 ML* 12.5 GM/50 ML VIAL ONE (01:29)
[2017-11-11] MEDS ORDERED: Sodium Chloride 0.9%* 10 ML ONE (01:35)
[2017-11-11] MEDS ORDERED: ceFAZolin 1 GM in Dextrose (*) 2 GM/100 ML BAG IVPB ONE (02:49)
[2017-11-11] MEDS ORDERED: Glycopyrrolate IV* 0.2 MG/ML 1 ML VIAL ONE ×2 (03:03→03:53)
[2017-11-11] MEDS ORDERED: Metoclopramide IV* 5 MG/ML 2 ML VIAL ONE (03:51)
[2017-11-11] MEDS ORDERED: Neostigmine Methylsulfate* 2 MG/2 ML SYRINGE ONE (03:53)
[2017-11-11] MEDS ORDERED: Morphine INJ* 2 MG/ML 1 ML SYRINGE (TWO MG - NEW SYRINGE VERSION) IV PRN (05:47)
[2017-11-11] MEDS ORDERED: hydrALAZINE IV* 20 MG/ML VIAL IV SLOW PU PRN (05:48)
[2017-11-11] MEDS ORDERED: Ondansetron INJ* 2 MG/ML VIAL IV PRN (05:48)
[2017-11-11] MEDS: HYDROcodone/ACETAMIN 5-325 MG* 1 TAB PO PRN (06:12)
[2017-11-11 06:34] LABS: ABS Basophils 0 10^3/ul (0-0.2); ABS Eosinophils 0 10^3/ul (0-0.6); ABS Lymphocytes 0.5 10^3/ul (1.0-4.8); ABS Monocytes 0.2 10^3/ul (0-0.8); ABS Neutrophils 10.6 10^3/ul (1.5-7.7); ABS Nucleated RBC 0 10^3/ul; Eosinophil % 0.1 % (0-6); Hematocrit 38 % (42-52); Hemoglobin 12.8 g/dl (14.0-18.0); Lymphocyte % 4.3 % (25-47); Mean Corpuscular HGB Conc 34 g/dl (31-36); Mean Corpuscular Hemoglobin 31 pg (27-31); Mean Corpuscular Volume 92 fL (80-94); Mean Platelet Volume 10.6 um3 (7.4-10.4); Nucleated Red Blood Cells % 0; Platelet Count 128 10^3/ul (150-450); Red Blood Count 4.07 10^6/ul (4.00-5.40); Red Cell Distribution Width 14 % (10.5-15); White Blood Count 11.3 10^3/ul (3.5-10.8)
[2017-11-11 06:50] LABS: EGFR Non-African American 94.2 (>60)
--- NOTE | 2017-11-11 07:49 | RAD ---
HISTORY: ams COMPARISONS: September 14, 2017 VIEWS: 4: Frontal dual-energy and lateral views of the chest. FINDINGS: CARDIOMEDIASTINAL SILHOUETTE: The cardiomediastinal silhouette is normal. PHILLIP: The phillip are normal. PLEURA: The costophrenic angles are sharp. No pleural abnormalities are noted. LUNG PARENCHYMA: There is hyperinflation with flattening of the diaphragm and expansion of the retrosternal airspace. Calcified granulomas are noted. ABDOMEN: The upper abdomen is clear. There is no subphrenic gas. BONES AND SOFT TISSUES: Degenerative changes are noted along the spine. OTHER: None. IMPRESSION: NO ACTIVE CARDIOPULMONARY DISEASE. R1
[2017-11-11] MEDS: levETIRAcetam TAB* 500 MG PO SCH ×2 (08:23→21:18)
[2017-11-11] MEDS: Pantoprazole IV* 40 MG IV SCH (08:23)
[2017-11-11] MEDS ORDERED: Metoprolol Tartrate TAB* 25 MG PO SCH (09:00)
--- NOTE | 2017-11-11 09:49 | PN ---
Subjective Date of Service: 11/11/17 Interval History: Pt is seen post op, doing well, AAOx3, neurologically appears intact. C/o abd discomfort in RLQ. Unusually he has a BM daily, but today due to bedrest he has had problems. Feels distended . Objective Active Medications: Acetaminophen (Tylenol Supp*) 650 mg TN Q6H PRN PRN Reason: FEVER/PAIN Hydrocodone Bitart/Acetaminophen ([place] 5-325 Tab*) 2 tab PO Q4H PRN PRN Reason: PAIN Last Admin: 11/11/17 06:12 Dose: 2 tab Hydralazine HCl (Apresoline Iv*) 20 mg IV SLOW PU Q4H PRN PRN Reason: SYSTOLIC > 160 MMHG Lactated Ringer's (Lactated Ringers 1000 Ml Bag*) 1,000 mls @ 75 mls/hr IV PER RATE [facility] Last Admin: 11/11/17 06:12 Dose: 75 mls/hr Levetiracetam (Keppra Tab*) 500 mg PO BID [facility] Last Admin: 11/11/17 08:23 Dose: 500 mg Metoprolol Tartrate (Lopressor Tab*) 12.5 mg PO BID [facility] Morphine Sulfate (Morphine Inj ((Syringe))*) 2 mg IV Q2H PRN PRN Reason: PAIN UNRELIEVED BY NORCO Ondansetron HCl (Zofran Odt Tab*) 4 mg PO Q6H PRN PRN Reason: n/v Ondansetron HCl (Zofran Inj*) 4 mg IV Q6H PRN PRN Reason: NAUSEA Pantoprazole Sodium (Protonix Iv*) 40 mg IV DAILY [facility] Last Admin: 11/11/17 08:23 Dose: 40 mg Vital Signs - 8 hr 11/11/17 11/11/17 11/11/17 04:42 04:45 04:49 Temperature 98.4 F Pulse Rate 56 60 78 Respiratory 18 21 18 Rate Blood Pressure 115/75 122/74 117/70 (mmHg) O2 Sat by Pulse 100 100 99 Oximetry 11/11/17 11/11/17 11/11/17 04:50 04:56 05:00 Temperature Pulse Rate 56 57 53 Respiratory 14 19 17 Rate Blood Pressure 129/70 118/75 (mmHg) O2 Sat by Pulse 100 100 100 Oximetry 08/11/11/17 11/11/17 05:01 05:08 05:11 Temperature Pulse Rate 51 50 57 Respiratory 16 20 19 Rate Blood Pressure 128/69 131/71 137/79 (mmHg) O2 Sat by Pulse 100 100 100 Oximetry 11/11/17 11/11/17 11/11/17 05:20 05:31 06:00 Temperature 96.3 F Pulse Rate 44 45 Respiratory 16 18 16 Rate Blood Pressure 141/61 131/74 (mmHg) O2 Sat by Pulse 100 Oximetry 11/11/17 11/11/17 11/11/17 06:01 06:30 07:00 Temperature Pulse Rate 44 43 44 Respiratory 21 24 15 Rate Blood Pressure 137/74 138/77 137/76 (mmHg) O2 Sat by Pulse 100 100 100 Oximetry 11/11/17 08:00 Temperature 97 F Pulse Rate 42 Respiratory 15 Rate Blood Pressure (mmHg) O2 Sat by Pulse 99 Oximetry Oxygen Devices in Use Now: Nasal Cannula Appearance: 72 yo M in nAD, aAOx3 Eyes: No Scleral Icterus, PERRLA Ears/Nose/Mouth/Throat: NL Teeth, Lips, Gums, Mucous Membranes Moist Neck: NL Appearance and Movements; NL JVP, Trachea Midline Respiratory: Symmetrical Chest Expansion and Respiratory Effort, Clear to Auscultation Cardiovascular: NL Sounds; No Murmurs; No JVD Abdominal: - - distended, tympanic to percussion, mild tenderness in R mid abd. Ventral hernia in epigastric region-NT Lymphatic: No Cervical Adenopathy Extremities: No Edema, No Clubbing, Cyanosis Skin: No Nodules or Sclerosis, - - head with 2 drains from post op incisions. Incsions covered with surgical dressings-not uncovered during exam Neurological: Alert and Oriented x 3, NL Muscle Strength and Tone Result Diagrams: 11/11/17 06:18 11/11/17 06:18 Microbiology and Other Data: Microbiology 11/11/17 01:35 Nasal Screen MRSA (PCR) - Final Nasal Mrsa Not Detected Assess/Plan/Problems-Billing Assessment: 72 yo M with h/o recent dx a. fib . Placed on Xarelto and lopressor 2 months ago, now with SDH - Patient Problems (1) Subdural hematoma Comment: while on Xarelto. no h/o trauma S/p evacuation by Dr. Smallwood on 8/23/18 AM today pt appears to be neurologically intact cont Keppra for seizure prophylaxis (2) Atrial fibrillation Comment: today in NSR, cont lopressor (3) Abdominal pain Comment: suspect constipation as the etiology will tx with MOM and simethicone prn (4) DVT prophylaxis Comment: SCD's Status and Disposition: Inpatient
[2017-11-11] MEDS ORDERED: Magnesium Hydroxide LIQ* 30 ML UDC PO ONE (09:53)
[2017-11-11] MEDS ORDERED: Simethicone TAB* 80 MG TAB.CHEW PO PRN (09:53)
--- NOTE | 2017-11-11 11:24 | RAD ---
HISTORY: f/u subdural hematoma COMPARISONS: November 10, 2017 TECHNIQUE: Multiple contiguous axial CT scans were obtained of the head without intravenous contrast. FINDINGS: HEMORRHAGE/INFARCT: There is no parenchymal hemorrhage. There is no acute infarct. MASSES/SHIFT: There is no mass or shift. EXTRA-AXIAL SPACES: There has been interval near complete resolution of the left frontoparietal subdural hematoma. There is a mixed acute/subacute right frontoparietal subdural hematoma measuring up to 0.6 cm in size with a fluid-fluid level. SULCI AND VENTRICLES: The sulci and ventricles are normal in size and position for the patient's stated age. CEREBRUM: There are no focal parenchymal abnormalities. BRAINSTEM: There are no focal parenchymal abnormalities. CEREBELLUM: There are no focal parenchymal abnormalities. VESSELS: The vessels are grossly normal. PARANASAL SINUSES: The paranasal sinuses are clear. ORBITS: The orbits are unremarkable. BONES AND SOFT TISSUE: There is postsurgical change to the skull. OTHER: None IMPRESSION: 1. NEAR COMPLETE RESOLUTION OF THE LEFT FRONTOPARIETAL SUBDURAL HEMATOMA. 2. RIGHT FRONTOPARIETAL SUBDURAL HEMATOMA MEASURING UP TO 0.6 CM. 3. THERE IS NO SHIFT.
--- NOTE | 2017-11-11 16:37 | PN ---
Progress Note - Progress Note Date of Service: 11/11/17 SOAP: Subjective: []POD # 1 Doing well Headache relieved No complaints Objective: []Neuro intact Post op CT shows slight pnemocephalus with good resolution of subdural and shift Assessment: []Doing well Plan: []D/C A line D/C DEMETRIA Reina Plan to take out sundural drain and transfer to floor in AM
[2017-11-11] MEDS: Metoprolol Tartrate TAB* 25 MG PO SCH (21:01)
[2017-11-12] MEDS: HYDROcodone/ACETAMIN 5-325 MG* 1 TAB PO PRN (08:28)
[2017-11-12] MEDS: Metoprolol Tartrate TAB* 25 MG PO SCH (08:29)
[2017-11-12] MEDS: levETIRAcetam TAB* 500 MG PO SCH ×2 (08:30→21:23)
[2017-11-12] MEDS: Pantoprazole IV* 40 MG IV SCH (08:30)
--- NOTE | 2017-11-12 10:13 | PN ---
Subjective Date of Service: 11/12/17 Interval History: Today pt feels "more awake" and stated that he did not see Dr. Fonseca yet since the dx of PAF. He has a scheduled appt. His HR has ranged from 40-70 with beta wilfred held in the past 2 days. Pt now recalls that he "fell" in August 2017 approx 3 days after he was started on his lopressor and Xarelto. He remembers getting dizzy from the medication and this that his PCP lowered the does to 1/2 tab BID later on. He still feels very tired when on lopressor. Since the fall in August pt has had daily headaches and on the days prior to admission - confusion. Today pt's drains were take out. He feels well. Wants to go home tomorrow Objective Active Medications: Acetaminophen (Tylenol Supp*) 650 mg [place] Q6H PRN PRN Reason: FEVER/PAIN Hydrocodone Bitart/Acetaminophen ([place] 5-325 Tab*) 2 tab PO Q4H PRN PRN Reason: PAIN Last Admin: 11/12/17 08:28 Dose: 2 tab Amlodipine Besylate (Norvasc Tab*) 5 mg PO DAILY [facility] Levetiracetam (Keppra Tab*) 500 mg PO BID [facility] Last Admin: 11/11/17 21:18 Dose: 500 mg Metoprolol Tartrate (Lopressor Tab*) 12.5 mg PO BID [facility] Last Admin: 11/12/17 08:29 Dose: Not Given Ondansetron HCl (Zofran Odt Tab*) 4 mg PO Q6H PRN PRN Reason: n/v Pantoprazole Sodium (Protonix Iv*) 40 mg IV DAILY [facility] Last Admin: 11/12/17 08:30 Dose: 40 mg Simethicone (Mylicon Tab*) 80 mg PO Q6H PRN PRN Reason: abd pain Vital Signs - 8 hr 11/12/17 11/12/17 11/12/17 03:00 03:33 04:00 Temperature 98.7 F Pulse Rate 50 49 Respiratory 13 15 Rate Blood Pressure 149/79 142/78 (mmHg) O2 Sat by Pulse 99 100 Oximetry 11/12/17 11/12/17 11/12/17 05:00 05:01 05:46 Temperature Pulse Rate 48 Respiratory 16 16 16 Rate Blood Pressure 168/85 (mmHg) O2 Sat by Pulse 100 Oximetry 11/12/17 11/12/17 11/12/17 05:54 06:00 06:30 Temperature Pulse Rate 51 50 50 Respiratory 17 15 14 Rate Blood Pressure 141/69 132/63 132/63 (mmHg) O2 Sat by Pulse 100 100 99 Oximetry 11/12/17 11/12/17 11/12/17 07:00 07:01 07:40 Temperature 98.6 F Pulse Rate 56 61 Respiratory 19 11 Rate Blood Pressure 119/71 (mmHg) O2 Sat by Pulse 100 100 Oximetry 11/12/17 11/12/17 11/12/17 08:00 09:00 09:01 Temperature Pulse Rate 50 68 60 Respiratory 18 23 23 Rate Blood Pressure 141/75 124/74 (mmHg) O2 Sat by Pulse 95 91 93 Oximetry Oxygen Devices in Use Now: Nasal Cannula Appearance: 72 yo M in nAD, aAOx3 Eyes: No Scleral Icterus, PERRLA Ears/Nose/Mouth/Throat: NL Teeth, Lips, Gums Neck: NL Appearance and Movements; NL JVP, Trachea Midline Respiratory: Symmetrical Chest Expansion and Respiratory Effort, Clear to Auscultation Cardiovascular: NL Sounds; No Murmurs; No JVD Abdominal: NL Sounds; No Tenderness; No Distention Lymphatic: No Cervical Adenopathy Extremities: No Edema, No Clubbing, Cyanosis Skin: No Nodules or Sclerosis, - - scalp incisions stapled-no dehiscence, drainage, infection noted Neurological: Alert and Oriented x 3, NL Muscle Strength and Tone Result Diagrams: 11/11/17 06:18 11/11/17 06:18 Microbiology and Other Data: Microbiology 11/11/17 01:35 Nasal Screen MRSA (PCR) - Final Nasal Mrsa Not Detected Assess/Plan/Problems-Billing Assessment: 72 yo M with h/o recent dx a. fib . Placed on Xarelto and lopressor 2 months ago, now with SDH - Patient Problems (1) Subdural hematoma Comment: while on Xarelto. Today pt was able to recall a fall/syncope that occured in 08/2017 with susequent daily headaches S/p evacuation by Dr. Smallwood on 11/11/17 AM today neurologically intact cont Keppra for seizure prophylaxis (2) Atrial fibrillation Comment: today in NSR, with predominant bradycardia. Lopressor with hold parametes not given due to HR 40-50's. will ask Dr. Mcclure to seee pt in consult Echo ordered. TSH 1.9 on 09/14/17 (3) DVT prophylaxis Comment: SCD's Status and Disposition: Inpatient
[2017-11-12] MEDS: amLODIPine TAB* 5 MG PO SCH (10:57)
--- NOTE | 2017-11-12 13:03 | ECHO ---
Patient: ILSA DINH [facility] Rec#: [id number] : 1945 Date: 11/12/2017 Age: 72y Height: 173 cm / 68.1 in Weight: 68.5 kg / 151.0 lbs Sex: M BSA: 1.82 Room#: [facility] Admit Date#: 11/11/2017 Type: Inpatient Referring: Caroline Gasca MD Reading: Bhavik Mcclure MD Staff Physical Therapist: Mireya Rivera LISA CC: Douglas Rodriguez NP Transthoracic Echocardiogram Indication: PAF BP: 124/74 HR: 75 Rhythm: NSR Findings History: SDH s/p craniotomy 11/11/17, PAF,a-fib,CAD with prior PCI. Technical Comments: The study quality is good. Completed at 1145. Left Ventricle: The left ventricular chamber size is normal. The estimated ejection fraction is 60-65%. Abnormal left ventricular diastolic function is observed. Abnormal left ventricular diastolic filling is observed, consistent with impaired relaxation. Left Atrium: The left atrium is mildly dilated. Right Ventricle: The right ventricular cavity size is normal. The right ventricular global systolic function is normal. Right Atrium: The right atrium is slightly dilated. Aortic Valve: The aortic valve is trileaflet. There is mild to moderate aortic regurgitation. There is a central mild jet and additional eccentric color which may be artifactual vs moderate AI. Mitral Valve: The mitral valve leaflets are mildly thickened. There is trace to mild mitral regurgitation. There is no evidence of mitral stenosis. Tricuspid Valve: The tricuspid valve leaflets are normal. There is trace to mild tricuspid regurgitation. There is no tricuspid stenosis. Pulmonic Valve: The pulmonic valve appears normal. There is trace to mild pulmonic regurgitation. There is no pulmonic stenosis. Pericardium: The pericardium appears normal. Aorta: There is no dilatation of the ascending aorta. There is no dilatation of the aortic arch. There is no dilation of the aortic root. Pulmonary Artery: The main pulmonary artery appears normal. Venous: The inferior vena cava appears normal in size. There is a greater than 50% respiratory change in the inferior vena cava dimension. Summary: There was not any prior study for comparison. Conclusions The estimated ejection fraction is 60-65%. Abnormal left ventricular diastolic filling is observed, consistent with impaired relaxation. The left atrium is mildly dilated. There is mild to moderate aortic regurgitation. There is a central mild jet and additional eccentric color which may be artifactual vs moderate AI. There is trace to mild mitral regurgitation. There is trace to mild tricuspid regurgitation. There is trace to mild pulmonic regurgitation. Measurements Name Value Normal Range RVIDd (AP) 2D 2.6 cm (0.9 - 2.6) RVDdMajor (2D) 2.9 cm (2.2 - 4.4) RAd ISD 4CH 6.1 cm (3.4 - 4.9) RA (A4C)W 3 cm (2.9 - 4.6) IVSd (2D) 1 cm (0.6 - 1) LVPWd (2D) 1 cm (0.6 - 1) LVIDd (2D) 4.3 cm (3.6 - 5.4) LVIDs (2D) 2.8 cm - LV FS (2D) 35 % (25 - 45) Aortic Annulus 2 cm (1.4 - 2.6) Ao root diameter (2D) 3.3 cm (2.1 - 3.5) Ascending Ao 3.4 cm (2.1 - 3.4) Aortic arch 2.2 cm (1.8 - 3.4) Descending Ao 0.7 cm - LA dimension (AP) 2D 4 cm (2.3 - 3.8) LAd ISD 4CH 5 cm (2.9 - 5.3) LA ISD 4CH W 3.7 cm (2.5 - 4.5) Name Value Normal Range LA ESV SP 4CH (A/L) 26 ml - LA ESV SP 2CH (A/L) 36 ml - LA ESV BP (A/L) index 31 ml/m2 - Name Value Normal Range MV E-wave Vmax 0.7 m/sec - MV deceleration time 250 msec - MV A-wave Vmax 0.5 m/sec - MV E:A ratio 1.4 ratio - LV septal e' Vmax 0.07 m/sec - LV lateral e' Vmax 0.09 m/sec - LV E:e' septal ratio 10 ratio - LV E:e' lateral ratio 7.78 ratio - Name Value Normal Range AV Vmax 1.4 m/sec - AV VTI 32.6 cm - AV peak gradient 8 mmHg - AV mean gradient 4 mmHg - LVOT Vmax 1.2 m/sec - LVOT peak gradient 6 mmHg - LVOT mean gradient 2 mmHg - AR PHT 650 msec - Name Value Normal Range MR Vmax 4.4 m/sec - MR VTI 114 cm - Name Value Normal Range TR Vmax 2.7 m/sec - TR peak gradient 29 mmHg - RAP 3 mmHg - RVSP 32 mmHg - IVC diameter 1.3 cm - Name Value Normal Range PV Vmax 0.9 m/sec - PV peak gradient 3 mmHg -
[2017-11-12] MEDS ORDERED: Potassium Chloride LIQUID* 20 MEQ PACKET PO ONE (14:15)
[2017-11-12] MEDS ORDERED: Digoxin IV* 0.5 MG/2 ML AMP (0.25 MG/ML) IV SLOW PU ONE (18:34)
[2017-11-12] MEDS ORDERED: Magnesium Sulfate 1 GM IV* 1 GM/100 ML BAG IV ONE (19:28)
[2017-11-12] MEDS ORDERED: Diltiazem IV* 5 MG/ML 5 ML VIAL (for loading dose/IV Push) (25 MG) IV SLOW PU ONE (19:28)
--- NOTE | 2017-11-12 19:28 | PN ---
Progress Note - Progress Note Date of Service: 11/12/17 Note: Pt developed a.fib with RVR tonight. Feels his HR fast and feels "weak all over ". SBP at 140. denies CP or SOB. will tx with digoxin 0.5 mg IV x1 and Cardizem 10 mg IV x1, may need Cardizem gtt if doesn't convert
[2017-11-12] MEDS ORDERED: Diltiazem DRIP* 100 MG/100 ML ADDV.BAG IVPB ONE (20:33)
--- NOTE | 2017-11-12 21:18 | CONS ---
CC: Douglas Rodriguez NP; Dr. Fonseca CONSULTATION NOTE: ADDENDUM: MEDICATION LIST: As an inpatient, he is on: 1. Acetaminophen 650 q.6 p.r.n. 2. Amlodipine 5 mg a day. 3. Hydrocodone. 4. Levetiracetam 500 mg b.i.d. 5. Zofran 4 mg q.6 p.r.n. 6. Simethicone 80 mg q.6 p.r.n. CONCLUSIONS: The patient is on amlodipine with low normal blood pressure. Will be cautious about adding additional medicines for paroxysmal atrial fibrillation due to his predisposition to low resting heart rates and low normal blood pressures. [id number]/[facility] #: [id number] MTDD
[2017-11-12] MEDS ORDERED: Diltiazem IV VIAL* 125 MG in NS 0.9% 100 ML* 100 ML IVPB ONE (22:38)
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
[2017-11-13] MEDS ORDERED: Diltiazem IV VIAL* 125 MG in NS 0.9% 100 ML* 100 ML IVPB ONE ×2 (01:13→03:46)
[2017-11-13] MEDS: HYDROcodone/ACETAMIN 5-325 MG* 1 TAB PO PRN (02:27)
[2017-11-13 06:33] LABS: EGFR Non-African American 121.4 (>60)
[2017-11-13] MEDS: levETIRAcetam TAB* 500 MG PO SCH ×2 (08:46→21:13)
[2017-11-13] MEDS: amLODIPine TAB* 5 MG PO SCH (09:09)
[2017-11-13] MEDS: Flecainide TAB* 100 MG PO SCH ×2 (09:58→21:13)
--- NOTE | 2017-11-13 10:37 | PN ---
Subjective Date of Service: 11/13/17 Interval History: Pt went into A. fib with RVR last night. Denies CP/SOB, feels tied. currently on Cardizem gtt at 5 mg/hr, planned for cardioversion this PM Objective Active Medications: Acetaminophen (Tylenol Supp*) 650 mg [place] Q6H PRN PRN Reason: FEVER/PAIN Hydrocodone Bitart/Acetaminophen ([place] 5-325 Tab*) 2 tab PO Q4H PRN PRN Reason: PAIN Last Admin: 11/13/17 02:27 Dose: 2 tab Flecainide Acetate (Tambocor Tab*) 100 mg PO BID [facility] Last Admin: 11/13/17 09:58 Dose: 100 mg Diltiazem HCl 125 mg/ Sodium (Chloride) 125 mls @ 5 mls/hr IVPB ONCE ONE Stop: 11/14/17 02:12 Last Admin: 11/13/17 03:53 Dose: 5 mls/hr Levetiracetam (Keppra Tab*) 500 mg PO BID [facility] Last Admin: 11/13/17 08:46 Dose: 500 mg Simethicone (Mylicon Tab*) 80 mg PO Q6H PRN PRN Reason: abd pain Vital Signs - 8 hr 11/13/17 11/13/17 11/13/17 02:45 03:00 03:10 Temperature Pulse Rate Respiratory Rate Blood Pressure 116/72 144/75 130/79 (mmHg) O2 Sat by Pulse Oximetry 11/13/17 11/13/17 11/13/17 03:23 03:30 03:53 Temperature 98.4 F Pulse Rate 80 Respiratory 20 Rate Blood Pressure 117/66 127/83 107/80 (mmHg) O2 Sat by Pulse 94 Oximetry 11/13/17 11/13/17 11/13/17 03:55 04:00 04:06 Temperature Pulse Rate Respiratory Rate Blood Pressure 91/73 114/74 107/72 (mmHg) O2 Sat by Pulse Oximetry 11/13/17 11/13/17 11/13/17 04:14 04:25 04:27 Temperature Pulse Rate Respiratory 20 Rate Blood Pressure 116/73 123/90 (mmHg) O2 Sat by Pulse Oximetry 11/13/17 11/13/17 11/13/17 04:40 04:55 05:10 Temperature Pulse Rate Respiratory Rate Blood Pressure 127/82 139/80 119/77 (mmHg) O2 Sat by Pulse Oximetry 11/13/17 11/13/17 11/13/17 05:25 05:29 05:55 Temperature Pulse Rate Respiratory Rate Blood Pressure 106/81 115/79 121/81 (mmHg) O2 Sat by Pulse Oximetry 11/13/17 11/13/17 11/13/17 06:25 06:55 07:25 Temperature Pulse Rate Respiratory Rate Blood Pressure 108/73 117/62 100/74 (mmHg) O2 Sat by Pulse Oximetry 11/13/17 11/13/17 11/13/17 07:56 08:00 08:25 Temperature Pulse Rate Respiratory 16 Rate Blood Pressure 101/66 98/66 (mmHg) O2 Sat by Pulse Oximetry Oxygen Devices in Use Now: None Appearance: 72 yo M in nAD, aAOx3 Eyes: No Scleral Icterus, PERRLA Ears/Nose/Mouth/Throat: NL Teeth, Lips, Gums, Mucous Membranes Moist Neck: NL Appearance and Movements; NL JVP, Trachea Midline Respiratory: Symmetrical Chest Expansion and Respiratory Effort, Clear to Auscultation Cardiovascular: - - irregular Abdominal: NL Sounds; No Tenderness; No Distention, No Hepatosplenomegaly Lymphatic: No Cervical Adenopathy Extremities: No Edema, No Clubbing, Cyanosis Skin: - - scalp incisions stapled, no evidence of dehiscence Neurological: Alert and Oriented x 3, NL Muscle Strength and Tone Result Diagrams: 11/11/17 06:18 11/13/17 05:32 Microbiology and Other Data: Microbiology 11/11/17 01:35 Nasal Screen MRSA (PCR) - Final Nasal Mrsa Not Detected Assess/Plan/Problems-Billing Assessment: 72 yo M with h/o recent dx a. fib . Placed on Xarelto and lopressor 2 months ago, now with SDH - Patient Problems (1) Subdural hematoma Comment: while on Xarelto. h/o fall/syncope that occured in 08/2017 with susequent daily headaches S/p evacuation by Dr. Smallwood on 11/11/17 AM continues to be neurologically intact cont Keppra for seizure prophylaxis (2) Atrial fibrillation Comment: today in. A. fib on Cardizem gtt. Got in A. fib with RVR evening of Plan for cardioversion this PM, flecaininde started by Dr. Carranza. At baseline he is in predominant bradycardia and had not been tolerating beta blockers. Echo shows EF 65% TSH 1.9 on 09/14/17 (3) DVT prophylaxis Comment: SCD's Status and Disposition: Inpatient
--- NOTE | 2017-11-13 11:03 | PN ---
Progress Note - Progress Note Date of Service: 11/13/17 SOAP: Subjective: []POD#2 Doing well neuro nash Apprec cardiology,hospitalist help Currently on Cardizem drip on telemetry Objective: []Dressing dry Neuro intact Assessment: []Stable post op Plan: []Patient has smaller SDH on right not currently symptomatic Would like to try to avoid full anticoagulation for 4 weeks if possible
--- NOTE | 2017-11-13 12:56 | PN ---
Subjective Date of Service: 11/13/17 - CC: palpitations (a. fib) Interval History: The patient went into atrial fibrillation last evening, off of metoprolol. He is aware of the rhythm change, denies SOB, dizziness or other c/o. Ate breakfast at 9 AM. Medications Active Medications: Acetaminophen (Tylenol Supp*) 650 mg [place] Q6H PRN PRN Reason: FEVER/PAIN Hydrocodone Bitart/Acetaminophen ([place] 5-325 Tab*) 2 tab PO Q4H PRN PRN Reason: PAIN Last Admin: 11/13/17 02:27 Dose: 2 tab Flecainide Acetate (Tambocor Tab*) 100 mg PO BID [facility] Last Admin: 11/13/17 09:58 Dose: 100 mg Diltiazem HCl 125 mg/ Sodium (Chloride) 125 mls @ 5 mls/hr IVPB ONCE ONE Stop: 11/14/17 02:12 Last Admin: 11/13/17 03:53 Dose: 5 mls/hr Levetiracetam (Keppra Tab*) 500 mg PO BID [facility] Last Admin: 11/13/17 08:46 Dose: 500 mg Simethicone (Mylicon Tab*) 80 mg PO Q6H PRN PRN Reason: abd pain Objective Vital Signs: Temp Pulse Resp BP Pulse Ox 98.4 F 80 20 98/66 94 11/13/17 03:23 11/13/17 03:23 11/13/17 08:00 11/13/17 08:25 11/13/17 03:23 Oxygen Devices in Use Now: None Appearance: lean older gentleman, sitting at 60 degrees, dressing on L forehead , no distress. Eyes: PERRLA Ears/Nose/Mouth/Throat: Mucous Membranes Moist Neck: NL Appearance and Movements; NL JVP Respiratory: Symmetrical Chest Expansion and Respiratory Effort, Clear to Auscultation Cardiovascular: - - Irregularly irregular, mildly tachycardic. Abdominal: NL Sounds; No Tenderness; No Distention Extremities: No Edema Skin: No Rash or Ulcers Neurological: Alert and Oriented x 3 Laboratory Results: 11/11/17 06:18 11/13/17 05:32 INR (Anticoag Therapy) 1.58 (0.77-1.02) H 11/10/17 23:05 APTT 38.6 seconds (26.0-36.3) H 11/10/17 23:05 Total Bilirubin 0.40 mg/dL (0.2-1.0) 11/10/17 23:05 AST 25 U/L (13-39) 11/10/17 23:05 ALT 18 U/L (7-52) 11/10/17 23:05 Alkaline Phosphatase 68 U/L (34-104) 11/10/17 23:05 Total Protein 6.5 g/dL (6.4-8.9) 11/10/17 23:05 Albumin 3.9 g/dL (3.2-5.2) 11/10/17 23:05 Globulin 2.6 g/dL (2-4) 11/10/17 23:05 Albumin/Globulin Ratio 1.5 (1-3) 11/10/17 23:05 11/10/17 11/11/17 23:05 06:18 Troponin I 0.00 0.00 EKG Data: Yesterday ECG: sinus bradycardia 49 bpm ECG this AM: Atrial fibrillation, 91 bpm (on cardizem gtt). Assessment/Plan 72 yo male with sick sinus syndrome and Paroxysmal Atrial Fibrillation (PAF). Fall in August, has subdural hematoma possibly from fall, s/p evacuation. SSS: Limits ability to utilize antiarrhythmics. Pacer planned, may need to move up the timing. Afib: As unable to anticoagulate would like to cardiovert today. Need to wait until further out from breakfast for safety/conscious sedation. Trying flecainide as this does not lower heart rate and the patient has a structurally normal ventricle. The indications/risks/benefits of cardioversion discussed with the patient, he is amenable to proceeding. 6 PM: s/.p electrical CV. Risks and benefits includingCVA risk with patient and 3 daughters. 1 shock transaient CV, reshock at 200 J, holding. Plan: continueFlecainide Stop Cardizem.
--- NOTE | 2017-11-13 13:12 | PTEDU ---
Patient Name: ILSA DINH ILSA DIHN selected video: Atrial Fibrillation to view on 11/13/2017 at 1:12:13 PM from [id number]
[2017-11-13] MEDS ORDERED: Midazolam* 1 MG/ML 10 ML VIAL (10 MG) ONE (17:12)
[2017-11-13] MEDS ORDERED: Flumazenil* 0.1 MG/ML 5 ML MDV ONE (17:12)
[2017-11-13] MEDS ORDERED: Naloxone* 0.4 MG/ML 1 ML VIAL ONE (17:12)
[2017-11-13] MEDS ORDERED: fentaNYL* 50 MCG/ML 5 ML VIAL (250 MCG VIAL) ONE (17:13)
[2017-11-13] MEDS ORDERED: Midazolam* 1 MG/ML 2 ML VIAL (2 MG) IV ONE (17:50)
[2017-11-13] MEDS ORDERED: fentaNYL* 50 MCG/ML 2 ML VIAL (100 MCG VIAL) IV SLOW PU ONE (17:53)
--- NOTE | 2017-11-13 23:45 | CARD ---
ELECTRICAL CARDIOVERSION: DATE OF PROCEDURE: 11/13/17 PROCEDURE: Electrical cardioversion. PREPROCEDURE DIAGNOSIS: Atrial fibrillation with rapid ventricular rate. POSTPROCEDURE DIAGNOSIS: Atrial fibrillation with rapid ventricular rate. DESCRIPTION OF PROCEDURE: The indications, risks, and benefits including stroke risk were discussed with the patient and his family. The patient has been in the AFib under 24 hours and due to a subdur al hematoma, is unable to go back onto anticoagulation at this time. The patient was in a postprandi al state. AP patches were applied and a time-out procedure was called. The patient received a total of 4 mg of Versed and 25 mcg of fentanyl. Initially, 120 joules was delivered across the chest wall with successful cardioversion to sinus rhythm, but it was transient. We then increased the joules to 200 joules and 200 joules was then synchronously delivered across the chest wall with successful car dioversion to sinus rhythm and this held. Currently, the patient is in sinus bradycardia of 52 beats a minute, hemodynamically stable with a blood pressure 103/60. There were no complications. A 12-le ad EKG is pending. [id number]/[facility] #: [id number]
[2017-11-14] MEDS: Acetaminophen TAB* 325 MG PO PRN ×2 (06:15→20:49)
[2017-11-14 07:11] LABS: EGFR Non-African American 113.4 (>60)
[2017-11-14] MEDS ORDERED: Magnesium Sulfate 2 GM IV* 2 GM/50 ML BAG IVPB ONE (09:00)
[2017-11-14] MEDS: levETIRAcetam TAB* 500 MG PO SCH ×2 (10:16→20:46)
[2017-11-14] MEDS: Flecainide TAB* 100 MG PO SCH ×2 (10:16→20:46)
[2017-11-14] MEDS ORDERED: Docusate CAP* 100 MG PO PRN (10:36)
[2017-11-14] MEDS ORDERED: Polyethylene Glycol 3350* 17 GM PACKET PO STA (10:36)
[2017-11-14] MEDS: Senna TAB PO SCH (12:00)
--- NOTE | 2017-11-14 14:08 | PN ---
Subjective Date of Service: 11/14/17 Interval History: Pt seen and examined. Meds and labs reviewed. S/P Cardioversion yesterday with Dr. Carranza CC: Constipation ROS: Denied ORDONEZ/dizziness, F/C, N/V, CP, SOB, increased cough, sputum production , abd pain, diarrhea, dysuria, myalgias, arthralgias, throat pain, and new skin lesions. The rest of the 14 point ROS are unremarkable. PHYSICAL EXAM: GEN APPEARANCE: Awake, not in acute distress HEENT: NC/with appropriately healing cranial sutures, PERRLA, moist oral mucosa , (-) throat erythema NECK: Soft, supple, (-) cervical LAD, (-)JVD HEART: S1S2 WNL, RRR, No MRG CHEST: CTA, BL, GAE, No W/R/R ABD: Soft, ND/NT, NABS 4x Q EXT: No C/C/E SKIN: Warm to touch PSYCH: No active psychosis, hallucinations, depression, SI/HI Objective Active Medications: Acetaminophen (Tylenol Tab*) 650 mg PO Q6H PRN PRN Reason: FEVER/PAIN Last Admin: 11/14/17 06:15 Dose: 650 mg Hydrocodone Bitart/Acetaminophen ([place] 5-325 Tab*) 2 tab PO Q4H PRN PRN Reason: PAIN Last Admin: 11/13/17 02:27 Dose: 2 tab Docusate Sodium (Colace Cap*) 100 mg PO DAILY PRN PRN Reason: CONSTIPATION Last Admin: 11/14/17 12:00 Dose: 100 mg Flecainide Acetate (Tambocor Tab*) 100 mg PO BID [facility] Last Admin: 11/14/17 10:16 Dose: 100 mg Levetiracetam (Keppra Tab*) 500 mg PO BID [facility] Last Admin: 11/14/17 10:16 Dose: 500 mg Senna (Senokot Tab*) 1 tab PO DAILY [facility] Last Admin: 11/14/17 12:00 Dose: 1 tab Simethicone (Mylicon Tab*) 80 mg PO Q6H PRN PRN Reason: abd pain Vital Signs - 8 hr 11/14/17 07:32 Temperature 97.5 F Pulse Rate 58 Respiratory 12 Rate Blood Pressure 116/63 (mmHg) O2 Sat by Pulse 99 Oximetry Oxygen Devices in Use Now: None Result Diagrams: 11/11/17 06:18 11/14/17 06:07 Microbiology and Other Data: Microbiology 11/11/17 01:35 Nasal Screen MRSA (PCR) - Final Nasal Mrsa Not Detected Assess/Plan/Problems-Billing Assessment: 72 yo M with h/o recent dx a. fib . Placed on Xarelto and lopressor 2 months ago, now with SDH - Patient Problems (1) Subdural hematoma Current Visit: Yes Status: Acute Code(s): S06.5X9A - TRAUM SUBDR HEM W LOC OF UNSP DURATION, INIT SNOMED Code(s): 24844408 Comment: -while on Xarelto. h/o fall/syncope that occured in 08/2017 -S/p evacuation by Dr. Smallwood on 11/11/17 AM -continues to be neurologically intact -cont Keppra for seizure prophylaxis (2) Atrial fibrillation Current Visit: Yes Status: Acute Code(s): I48.91 - UNSPECIFIED ATRIAL FIBRILLATION SNOMED Code(s): 17953618 Comment: -S/P_ cardioversion (11/13/17) -Continue Flecainide -Echo shows EF 65% -TSH 1.9 on 09/14/17 (3) Constipation Current Visit: Yes Status: Acute Code(s): K59.00 - CONSTIPATION, UNSPECIFIED SNOMED Code(s): 42135241 Comment: -Will place pt on Colace and Senna and 1x Miralax (4) DVT prophylaxis Current Visit: Yes Status: Acute Code(s): [id number] - SNOMED Code(s): 484894859 Comment: SCD's Status and Disposition: -Will ask PT to re-eval
--- NOTE | 2017-11-14 19:46 | PN ---
Subjective Date of Service: 11/14/17 - CC: tachybrady syndrome. Interval History: No palpitations. No new c/o on Flecainide. Mild tenderness at incision on scalp, no head ache. Medications Active Medications: Acetaminophen (Tylenol Tab*) 650 mg PO Q6H PRN PRN Reason: FEVER/PAIN Last Admin: 11/14/17 06:15 Dose: 650 mg Hydrocodone Bitart/Acetaminophen ([place] 5-325 Tab*) 2 tab PO Q4H PRN PRN Reason: PAIN Last Admin: 11/13/17 02:27 Dose: 2 tab Docusate Sodium (Colace Cap*) 100 mg PO DAILY PRN PRN Reason: CONSTIPATION Last Admin: 11/14/17 12:00 Dose: 100 mg Flecainide Acetate (Tambocor Tab*) 100 mg PO BID [facility] Last Admin: 11/14/17 10:16 Dose: 100 mg Levetiracetam (Keppra Tab*) 500 mg PO BID [facility] Last Admin: 11/14/17 10:16 Dose: 500 mg Senna (Senokot Tab*) 1 tab PO DAILY [facility] Last Admin: 11/14/17 12:00 Dose: 1 tab Simethicone (Mylicon Tab*) 80 mg PO Q6H PRN PRN Reason: abd pain Objective Vital Signs: Temp Pulse Resp BP Pulse Ox 98.1 F 61 16 114/62 97 11/14/17 19:34 11/14/17 19:34 11/14/17 19:34 11/14/17 19:34 11/14/17 19:34 Oxygen Devices in Use Now: None Appearance: lean older gentleman, lying at 20 degrees, comfortable. Eyes: PERRLA Ears/Nose/Mouth/Throat: Mucous Membranes Moist Neck: NL Appearance and Movements; NL JVP Respiratory: Symmetrical Chest Expansion and Respiratory Effort, Clear to Auscultation Cardiovascular: NL Sounds; No Murmurs; No JVD, RRR, - Abdominal: NL Sounds; No Tenderness; No Distention Extremities: No Edema Skin: No Rash or Ulcers Neurological: Alert and Oriented x 3 Lines/Tubes/Other Access: Clean, Dry and Intact Peripheral IV Laboratory Results: 11/11/17 06:18 11/14/17 06:07 INR (Anticoag Therapy) 1.58 (0.77-1.02) H 08/22/18 23:05 APTT 38.6 seconds (26.0-36.3) H 11/10/17 23:05 Total Bilirubin 0.40 mg/dL (0.2-1.0) 11/10/17 23:05 AST 25 U/L (13-39) 11/10/17 23:05 ALT 18 U/L (7-52) 11/10/17 23:05 Alkaline Phosphatase 68 U/L (34-104) 11/10/17 23:05 Total Protein 6.5 g/dL (6.4-8.9) 11/10/17 23:05 Albumin 3.9 g/dL (3.2-5.2) 11/10/17 23:05 Globulin 2.6 g/dL (2-4) 11/10/17 23:05 Albumin/Globulin Ratio 1.5 (1-3) 11/10/17 23:05 11/10/17 11/11/17 23:05 06:18 Troponin I 0.00 0.00 EKG Data: Monitor: NSR 60's, occ PAC's. No bradycardia. No afib. Assessment/Plan 72 yo male with sick sinus syndrome and Paroxysmal Atrial Fibrillation (PAF). Fall in August, has subdural hematoma possibly from fall, s/p evacuation. SSS: Limits ability to utilize antiarrhythmics. Pacer recommended. As per discussions over the weekend plan on pacer in AM. Afib: Succesful CV yesterday. Maintaining NSR of Flecainide, continue. Once pacer in I recommend resuming beta wilfred for PAC's and to combine with Flecainide. Pacer algorithm for PAF may help prevent sustained events as well. No anticoagulation for PAF until OK'd by neurosurgery. The indications/risks/benefits of pacemaker discussed. Pt right handed, plan on Left sided implant.
[2017-11-14] MEDS ORDERED: Diazepam TAB(*) 5 MG PO PRN (19:53)
[2017-11-15] MEDS: NS 0.9% 1000 ML* 1,000 ML IV SCH ×2 (07:27→20:16)
[2017-11-15] MEDS: Senna TAB PO SCH (07:28)
--- NOTE | 2017-11-15 07:42 | PN ---
Progress Note - Progress Note Date of Service: 11/15/17 SOAP: Subjective: []Events noted For macemaker today Neuro intact No c/o headache Objective: [] Neuro intact Wound looks good Assessment: []Stable Plan: []D/C when cleared by Cardiology
[2017-11-15] MEDS: Flecainide TAB* 100 MG PO SCH ×2 (07:48→21:27)
[2017-11-15] MEDS: levETIRAcetam TAB* 500 MG PO SCH ×2 (07:48→21:27)
[2017-11-15 08:28] LABS: Hematocrit 37 % (42-52); Hemoglobin 12.5 g/dl (14.0-18.0); Mean Corpuscular HGB Conc 34 g/dl (31-36); Mean Corpuscular Hemoglobin 31 pg (27-31); Mean Corpuscular Volume 93 fL (80-94); Mean Platelet Volume 10.2 um3 (7.4-10.4); Platelet Count 145 10^3/ul (150-450); Red Blood Count 3.99 10^6/ul (4.00-5.40); Red Cell Distribution Width 14 % (10.5-15); White Blood Count 8.8 10^3/ul (3.5-10.8)
[2017-11-15 08:50] LABS: EGFR Non-African American 106.2 (>60)
[2017-11-15] MEDS ORDERED: ceFAZolin 2 GM PREMIX (*) 2 GM/50 ML BAG IVPB ONE (10:00)
[2017-11-15] MEDS ORDERED: Lidocaine 1% INJ* 10 MG/ML 30 ML SDV ONE (13:54)
[2017-11-15] MEDS ORDERED: fentaNYL* 50 MCG/ML 2 ML VIAL (100 MCG VIAL) ONE (13:56)
[2017-11-15] MEDS ORDERED: Midazolam* 1 MG/ML 5 ML VIAL (5 MG) ONE (13:56)
[2017-11-15] MEDS ORDERED: ceFAZolin 1 GM VIAL(*) ONE (13:56)
[2017-11-15] MEDS ORDERED: Metoprolol Succinate XL TAB* 50 MG PO SCH (16:00)
[2017-11-15] MEDS: ceFAZolin 1 GM VIAL(*) 1 GM in NS 0.9% 50 ML* 50 ML IVPB SCH (16:33)
--- NOTE | 2017-11-15 17:17 | PN ---
Subjective Date of Service: 11/15/17 Interval History: Pt seen and examined. Meds and labs reviewed. Pt mentioned he had a good BM this AM CC: N/A ROS: Denied ORDONEZ/dizziness, F/C, N/V, CP, SOB, increased cough, sputum production , abd pain, diarrhea, constipation, dysuria, myalgias, arthralgias, throat pain , and new skin lesions. The rest of the 14 point ROS are unremarkable. PHYSICAL EXAM: PHYSICAL EXAM: GEN APPEARANCE: Awake, not in acute distress HEENT: NC/with appropriately healing cranial sutures, PERRLA, moist oral mucosa , (-) throat erythema NECK: Soft, supple, (-) cervical LAD, (-)JVD HEART: S1S2 WNL, RRR, No MRG CHEST: CTA, BL, GAE, No W/R/R ABD: Soft, ND/NT, NABS 4x Q EXT: No C/C/E SKIN: Warm to touch PSYCH: No active psychosis, hallucinations, depression, SI/HI Objective Active Medications: Acetaminophen (Tylenol Tab*) 650 mg PO Q6H PRN PRN Reason: FEVER/PAIN Last Admin: 11/14/17 20:49 Dose: 650 mg Hydrocodone Bitart/Acetaminophen ([place] 5-325 Tab*) 2 tab PO Q4H PRN PRN Reason: PAIN Last Admin: 11/13/17 02:27 Dose: 2 tab Docusate Sodium (Colace Cap*) 100 mg PO DAILY PRN PRN Reason: CONSTIPATION Last Admin: 11/14/17 12:00 Dose: 100 mg Flecainide Acetate (Tambocor Tab*) 100 mg PO BID [facility] Last Admin: 11/15/17 07:48 Dose: 100 mg Sodium Chloride (Ns 0.9% 1000 Ml*) 1,000 mls @ 100 mls/hr IV PER RATE [facility] Last Admin: 11/15/17 07:27 Dose: 100 mls/hr Cefazolin Sodium 1 gm/ Sodium (Chloride) 50 mls @ 200 mls/hr IVPB Q8H [facility] Stop: 11/16/17 09:14 Last Admin: 11/15/17 16:33 Dose: 200 mls/hr Levetiracetam (Keppra Tab*) 500 mg PO BID [facility] Last Admin: 11/15/17 07:48 Dose: 500 mg Metoprolol Succinate (Toprol Xl Tab*) 50 mg PO DAILY [facility] Last Admin: 11/15/17 16:33 Dose: 50 mg Senna (Senokot Tab*) 1 tab PO DAILY [facility] Last Admin: 11/15/17 07:28 Dose: Not Given Simethicone (Mylicon Tab*) 80 mg PO Q6H PRN PRN Reason: abd pain Vital Signs - 8 hr 11/15/17 11/15/17 11/15/17 12:06 15:03 15:13 Temperature 97.9 F Pulse Rate 56 60 Respiratory 17 Rate Blood Pressure 110/65 (mmHg) O2 Sat by Pulse 97 95 Oximetry 11/15/17 11/15/17 11/15/17 15:26 15:48 15:55 Temperature 98.2 F Pulse Rate 60 Respiratory Rate Blood Pressure 114/87 122/72 (mmHg) O2 Sat by Pulse 95 Oximetry 11/15/17 11/15/17 11/15/17 15:57 16:00 16:26 Temperature Pulse Rate 60 60 Respiratory Rate Blood Pressure 118/73 140/73 (mmHg) O2 Sat by Pulse 97 97 Oximetry Oxygen Devices in Use Now: None Result Diagrams: 11/15/17 07:55 11/15/17 07:55 Microbiology and Other Data: Microbiology 11/11/17 01:35 Nasal Screen MRSA (PCR) - Final Nasal Mrsa Not Detected Assess/Plan/Problems-Billing Assessment: 72 yo M with h/o recent dx a. fib . Placed on Xarelto and lopressor 2 months ago, now with SDH - Patient Problems (1) SSS (sick sinus syndrome) Current Visit: Yes Status: Acute Code(s): I49.5 - SICK SINUS SYNDROME SNOMED Code(s): 56283649 Comment: -S/P pacemaker placement a few hours ago -For transfer to /[facility] (2) Atrial fibrillation Current Visit: Yes Status: Acute Code(s): I48.91 - UNSPECIFIED ATRIAL FIBRILLATION SNOMED Code(s): 57740599 Comment: -S/P cardioversion (11/13/17) -Continue Flecainide -Echo shows EF 65% -TSH 1.9 on 09/14/17 -Metoprolol re-ordered by Dr. Diaz assistance (3) Subdural hematoma Current Visit: Yes Status: Acute Code(s): S06.5X9A - TRAUM SUBDR HEM W LOC OF UNSP DURATION, INIT SNOMED Code(s): 11427191 Comment: -while on Xarelto. h/o fall/syncope that occured in 08/2017 -S/p evacuation by Dr. Smallwood on 11/11/17 AM -continues to be neurologically intact -cont Keppra for seizure prophylaxis (4) Constipation Current Visit: Yes Status: Acute Code(s): K59.00 - CONSTIPATION, UNSPECIFIED SNOMED Code(s): 94175913 Comment: -Resolved -Continue Colace and Senna (5) DVT prophylaxis Current Visit: Yes Status: Acute Code(s): FPY5583 - SNOMED Code(s): 383143759 Comment: SCD's Status and Disposition: -Will ask PT to re-eval
--- NOTE | 2017-11-15 17:22 | RAD ---
INDICATION: Status post implantation of left upper chest cardiac pacemaker COMPARISON: Chest x-ray dated November 10, 2017 TECHNIQUE: Single AP portable view of the chest was obtained. FINDINGS: Image quality is compromised due to the relative inferiority of a portable chest x-ray. There is been interval placement of a left upper chest cardiac pacemaker with 2 leads overlying the heart. The heart and mediastinum exhibit normal size and contour. There is no left-sided pneumothorax. The lungs are grossly clear. There is no evidence of a large pleural effusion. Visualized bones are normal for the patient's age. IMPRESSION: Interval placement of a 2-lead left upper chest cardiac pacemaker without radiographically apparent acute cardiopulmonary abnormality.
[2017-11-15] MEDS: Acetaminophen TAB* 325 MG PO PRN (21:27)
[2017-11-16] MEDS: ceFAZolin 1 GM VIAL(*) 1 GM in NS 0.9% 50 ML* 50 ML IVPB SCH ×2 (02:49→09:25)
--- NOTE | 2017-11-16 05:37 | OP ---
DATE OF OPERATION: 11/15/17 - ROOM #[id number] DATE OF : 49. SURGEON: Joe Fonseca MD. ANESTHESIA: Local anesthesia with conscious sedation. PRE-OP DIAGNOSES: 1. Sick sinus syndrome. 2. Bradycardia. 3. Atrial fibrillation. POST-OP DIAGNOSES: 1. Sick sinus syndrome. 2. Bradycardia. 3. Atrial fibrillation. OPERATIVE PROCEDURE: Dual-chamber pacemaker implantation. ESTIMATED BLOOD LOSS: Nil. COMPLICATIONS: None. INDICATIONS: 1. Sick sinus syndrome. 2. Atrial fibrillation. 3. Bradycardia. The patient is a 72-year-old gentleman who has been having episodes of lightheadedness. He was recently seen in the emergency room and had atrial fibrillation which broke the sinus bradycardia. The patient was recently admitted to the hospital after a syncopal episode resulting in a fall and a subdural hematoma. While he was in the hospital, he had an episode of atrial fibrillation which was converted to normal sinus rhythm. He has baseline bradycardia. Permanent pacemaker was recommended. DESCRIPTION OF PROCEDURE: The patient was brought to the operating room in a fasting state. Informed consent had been obtained prior to the procedure. All labs were reviewed. The patient was placed supine on the procedure table. His left deltopectoral area was cleaned and draped in the usual fashion. 1% lidocaine was used for local anesthesia. Under ultrasound guidance, the axillary vein was entered by a modified Seldinger technique and a guidewire was placed. A second guidewire was placed in the same technique. A 3 cm incision was made in the pectoral area and blunt dissection was carried down to the pectoral fascia. A pocket was fashioned for the pacemaker. Over the first guidewire, a 6-[place] sheath introducer was placed, through which a right ventricular lead was advanced to the RV apex. The right ventricular lead was [employer] model 2088TC, serial #[id number] and a R-wave sensitivity of 6.7 , impedance of 755 ohms, threshold 1 volt at 0.4 milliseconds. The ventricular lead was sutured to the pectoral fascia. Over the second guidewire, a 6 [place] sheath introducer was placed through which a right radial lead was advanced to the high right atrium. The right atrial lead was a [employer], model 2088TC, serial #[id number], it had a P-wave sensitivity of 2.4 volts, impedance 423 ohms, threshold 0.7 volts at 0.4 milliseconds. The atrial lead was sutured to the pectoral fascia. The pocket was flushed. A generator was attached appropriately to atrioventricular lead. The generator is a [employer] model TM 2272, serial #[id number]. It was placed in the pocket. The surgical incision was closed in three layers. The patient tolerated the procedure well. There were no complications. [id number]/[facility] #: [id number] MORIAH
[2017-11-16 06:05] LABS: Hematocrit 36 % (42-52); Hemoglobin 12.2 g/dl (14.0-18.0); Mean Corpuscular HGB Conc 34 g/dl (31-36); Mean Corpuscular Hemoglobin 31 pg (27-31); Mean Corpuscular Volume 93 fL (80-94); Mean Platelet Volume 10.4 um3 (7.4-10.4); Platelet Count 136 10^3/ul (150-450); Red Blood Count 3.89 10^6/ul (4.00-5.40); Red Cell Distribution Width 14 % (10.5-15); White Blood Count 9.6 10^3/ul (3.5-10.8)
[2017-11-16] MEDS ORDERED: Metoprolol Succinate XL TAB* 25 MG PO SCH (09:00)
[2017-11-16] MEDS: levETIRAcetam TAB* 500 MG PO SCH (09:23)
[2017-11-16] MEDS: Flecainide TAB* 100 MG PO SCH (09:23)
[2017-11-16] MEDS: Senna TAB PO SCH (09:23)
[2017-11-16] MEDS: NS 0.9% 1000 ML* 1,000 ML IV SCH (09:25)
[2017-11-16] MEDS ORDERED: Magnesium Sulfate IV* 3 GM in NS 0.9% 100 ML* 100 ML IVPB ONE (10:28)
--- NOTE | 2017-11-16 11:04 | RAD ---
INDICATION: Device implant COMPARISON: Chest x-ray November 15, 2017; CT chest February 08, 2013 TECHNIQUE: PA and lateral dual-energy views were obtained. FINDINGS: Bones/Soft Tissues: There are no acute bony findings. There is a left-sided cardiac pacemaker. Cardiomediastinal: The cardiomediastinal silhouette is normal. Lungs: There are no acute infiltrates. There is no pneumothorax. There is a stable small opacity projecting over the right upper lung field which corresponds to chronic pleural-based change from the earlier CT. The appearance unchanged Pleura: There are no pleural effusions. Other: None IMPRESSION: LEFT-SIDED CARDIAC PACEMAKER. NO ACUTE INFILTRATES OR VASCULAR CONGESTION. NO PNEUMOTHORAX.
[2017-11-16 15:03] VITALS: BP 116/81
--- NOTE | 2017-11-17 03:13 | DS ---
CC: Dr. Padilla; Dr. Dwain Camacho; Dr. Efrain Smallwood; Dr. Mcclure; Dr. Fonseca; Douglas Rodriguez NP * DISCHARGE SUMMARY: DATE OF ADMISSION: DATE OF DISCHARGE: 11/16/17 DISCHARGE DIAGNOSES: As follows: 1. Sick sinus syndrome status post DDD pacer implantation. 2. Atrial fibrillation status post cardioversion and placement on flecainide. 3. Subdural hematoma status post evacuation by Dr. Smallwood on 11/11/17. 4. Constipation, resolved. DISCHARGE MEDICATIONS: Are as follows: 1. Tylenol 650 mg p.o. q. 6 p.r.n. 2. Keflex 250 mg p.o. t.i.d. for 3 more days. 3. Colace 100 mg p.o. daily. 4. Flecainide 100 mg p.o. b.i.d. 5. [place] 5/325 two tabs p.o. q. 4 p.r.n. 12 tablets dispensed with 2 refills. The patient advised to contact Dr. Smallwood's office and/or his PCP if refills are needed. 6. Floranex tablets 2 tabs p.o. daily for 7 days. 7. Keppra 500 mg p.o. b.i.d. 8. Metoprolol succinate 25 mg p.o. daily. 9. Senna 1 tab p.o. daily. 10. Simethicone 80 mg p.o. q. 6 p.r.n. HISTORY OF PRESENT ILLNESS/HOSPITAL COURSE: The patient is a 72-year-old gentleman with history of CAD, status post stent, AFib, on rivaroxaban , who reported getting up in the morning around 08/29/17 and suddenly lost consciousness striking his head. He is unaware how long he was unconscious and did not seek medical evaluation. Since that time, he had a continuous headache and his coworker reported concern that he has not been himself. His headache then got worse with ranges of motion of his head and he felt increasing easy fatigability and denies any focal changes nor change in his speech, swallowing, or vision or other issues. His daughter then reported to the ED that he has been favoring his right side and has been very forgetful and was found to have subdural hematoma requiring an emergency craniotomy by Dr. Smallwood. He was then subsequently found to have sick sinus syndrome as well as AFib requiring cardioversion but given the recent subdural hematoma, he was not placed on full dose anticoagulation. His sick sinus syndrome was then addressed with an implantation of a DDD pacer by Dr. Fonseca and has done well post pacer placement overnight. He had been advised to follow up and/or call his PCP within 3 days post discharge, to take his Keflex antibiotics 3 times a day for 3 more days, to follow all the instructions of his prosthetic assistant and to follow up with Dr. Fonseca in 1 week, and to call [phone] to make an appointment. He was advised to follow up with Dr. Smallwood's office in 1 week to remove the sutures if at all in 1 week and hence will defer. He was advised that if he is having any problems and/or if his symptoms worsen, to call his PCP first to see if his concerns can be addressed in a timely manner if not or if he has been advised to go to the ER due to scheduling issues alone to discuss whether it is safe for him to be seen in the [facility] and if found to be appropriate to and/or he is unable to touch base with his PCP to call [facility]. He was advised to call my office for any questions, concerns, or further clarifications regarding his discharge plans and/or prescriptions and he was advised to call his PCP and/or his surgeon's office for any refills if he needs any more pain medications. He was advised to take his medications as prescribed. PHYSICAL EXAMINATION: Shows the most recent vital signs of records with blood pressure of 116/81, 98.1 degrees Fahrenheit temperature, heart rate of 58 beats per minute, 20 per minute respiratory rate, saturating at 99%. General appearance: The patient is awake, alert, and oriented x3. Not in acute distress. HEENT: Normocephalic with craniotomy sutures in place and healing well due to recent surgery. PERRLA. Extraocular muscles intact. Negative for icterus. Moist oral mucosa. Negative throat erythema. Neck is soft, supple with no cervical lymphadenopathy. No JVD. Heart: S1, S2 within normal limits , regular rate and rhythm. No murmurs, rubs, and gallops. Chest: Clear to auscultation bilaterally. Good air entry. No wheezes, rales, or rhonchi. Abdomen is soft, nondistended, nontender. Normoactive bowel sounds x4 quadrants. Extremities: No cyanosis, clubbing or edema. Psychiatric: No active psychosis, depression, suicidal nor homicidal ideations. Skin is warm to touch. TIME SPENT: The total time spent evaluating patient, reviewing pertinent data, and appropriate documentation is greater than 30 minutes. [id number]/[facility] #: [id number] MTDD
--- NOTE | 2017-11-17 12:54 | CONS ---
INPATIENT CONSULTATION: DATE OF CONSULT: 11/11/17 CHIEF COMPLAINT: Headache. HISTORY OF PRESENT ILLNESS: This is a 72-year-old gentleman with a history of atrial fibrillation for which he is on Xarelto, presented to the emergency room with a several week history of progressive headaches. His history was that of striking his head after passing out on 08/29/17. Over the last several weeks, his daughters have noticed that his mental status seems to have declined and he has been forgetful, developed some mild urinary incontinence issues and complained of significant headaches. He was seen in the emergency room where a CT scan showed bilateral subdural hematomas with the left side being quite large with a chronic and subacute component with marked shift. The patient was seen by the hospitalist service and was given appropriate reversal for his Xarelto and urgent consultation obtained to take the patient to surgery. PAST MEDICAL HISTORY: His past medical history is significant for previous coronary artery disease with stent placement. He also has atrial fibrillation. PAST SURGICAL HISTORY: Past surgeries include his stent placement and appendectomy. ALLERGIES: He has no medication allergies. FAMILY HISTORY: Family history was taken and is noncontributory to this illness. SOCIAL HISTORY: He smokes a half pack cigarettes a day and has an occasional drink. REVIEW OF SYSTEMS: A review of systems was performed and other than his cardiac and neuro reviews, were noncontributory. PHYSICAL EXAM: On exam, head was normocephalic and no scalp contusion or tenderness. Eyes with full range of extraocular movements. Pupils were equal, round and reactive to light. Neck: Supple. Lungs: Clear to auscultation. Cardiovascular exam revealed an irregular rate and rhythm. Abdomen: Soft with normal bowel sounds. No tenderness. Neurological examination revealed him to be awake, alert and oriented. Motor examination revealed a mild drift of his right upper extremity. Sensory exam was intact to pinprick and light touch. Reflexes were 2+ throughout. DIAGNOSTIC STUDIES/LAB DATA: CT scan was reviewed with significant chronic and subacute subdural hematoma on the left side causing marked left to right shift. IMPRESSION: Subacute, subdural hematoma. PLAN: He is being taken urgently to surgery for craniotomy for removal of his clot. A preop discussion was held with the patient and his daughters regarding the risk and intended benefits of the procedure. [id number]/[facility] #: [id number] MORIAH
--- NOTE | 2017-11-17 20:27 | OP ---
DATE OF OPERATION: 11/11/17 - ROOM #448 DATE OF : 49 SURGEON: Efrain Smallwood MD ANESTHESIA: General. PRE-OP DIAGNOSIS: Left subacute subdural hematoma. POST-OP DIAGNOSIS: Left subacute subdural hematoma. OPERATIVE PROCEDURE: Left frontotemporoparietal craniotomy with evacuation of subacute subdural hematoma. DESCRIPTION OF PROCEDURE: This patient had presented to the emergency room with a several-week history of severe headaches. A CT scan of his head was obtained showing a very significant combination of chronic and subacute subdural hematoma with marked left to right shift. The patient had been on anticoagulants and after he had been reversed, he was taken urgently to the operating room. He was placed on the operating room table in the supine position and after satisfactory general anesthesia was obtained the left side of the head was clipped, prepped and draped in sterile manner for a trauma craniotomy flap. A skin incision was outlined beginning at the left zygoma and extending up in a question xochitl pattern into the parietoccipital area and then back to the mid frontal area approximately 3 cm to the left of the midline. This incision was infiltrated with 1% Xylocaine with epinephrine after it was turned down sharply to the periosteum. The scalp reflected anteriorly and a frontal bone flap was turned with a clair hole placed in the mid frontal region 3 cm to the left of the midline. A second bur hole posteriorly and a third bur hole in the sphenoid keyhole region. Free bone flap was then removed. The dura was noted to be markedly adherent to the bone flap. Upon removing the bone flap which tore the dura there was marked release of maroon colored subdural fluid. The remaining portions of the dura were then reflected laterally. The subdural space was then irrigated and both chronic and more gelatinous subacute subdural hematoma were removed from the surface of the brain. The brain itself appeared to be in good condition. After assuring adequate hemostasis and was thoroughly irrigated, after which a ventricular catheter was placed into the subdural space and tunnelled out anteriorly to serve as as postoperative subdural drain. The dura was then reapproximated with 4-0 Nurolon suture as well as a piece of DuraGen artificial dura to serve as a dural substitute where the dura had been torn. A central dural tack-up was placed as well. The bone flap was then replaced with plates and screws. A scalp drain was placed and tunneled out posteriorly. The galea was then reapproximated with 2-0 Vicryl and the skin closed with skin clips. The estimated blood loss was 200 cc and the final sponge, padding, and needle counts were correct. The patient was taken to the recovery room, extubated, and in stable condition. [id number]/[facility] #: [id number] MTDD
== END 2017-11-16 18:05 | disposition home or self-care (01) | DRG 26 ==
LOC: ED 22:06 → ICU 11-11 05:45 → SSU 11-12 13:09 → MEDTELE 11-12 19:22
PROVIDERS: ADMIT Hospitalist; ATTEND Student in an Organized Health Care Education/Training Program
PROC: 00C40ZZ Extirpation of Matter from Intracranial Subdural Space, Open Approach (ICD-10-PCS; 2017-11-11)
PROC: 3E033XZ Introduction of Vasopressor into Peripheral Vein, Percutaneous Approach (ICD-10-PCS; 2017-11-11)
PROC: 30283B1 Transfusion of Nonautologous 4-Factor Prothrombin Complex Concentrate into Vein, Percutaneous Approach (ICD-10-PCS; 2017-11-11)
PROC: 5A2204Z Restoration of Cardiac Rhythm, Single (ICD-10-PCS; principal; 2017-11-13)
PROC: 0JH606Z Insertion of Pacemaker, Dual Chamber into Chest Subcutaneous Tissue and Fascia, Open Approach (ICD-10-PCS; 2017-11-15)
PROC: 02H63JZ Insertion of Pacemaker Lead into Right Atrium, Percutaneous Approach (ICD-10-PCS; 2017-11-15)
PROC: 02HK3JZ Insertion of Pacemaker Lead into Right Ventricle, Percutaneous Approach (ICD-10-PCS; 2017-11-15)
DX: S06.5X9A Traumatic subdural hemorrhage with loss of consciousness of unspecified duration, initial encounter (principal); D68.8 Other specified coagulation defects; I49.5 Sick sinus syndrome; I25.10 Atherosclerotic heart disease of native coronary artery without angina pectoris; R32 Unspecified urinary incontinence; R21 Rash and other nonspecific skin eruption; W19.XXXA Unspecified fall, initial encounter; F17.210 Nicotine dependence, cigarettes, uncomplicated; I08.3 Combined rheumatic disorders of mitral, aortic and tricuspid valves; I48.0 Paroxysmal atrial fibrillation; T45.515A Adverse effect of anticoagulants, initial encounter; R79.1 Abnormal coagulation profile; R14.0 Abdominal distension (gaseous); Z95.0 Presence of cardiac pacemaker; Z83.2 Family history of diseases of the blood and blood-forming organs and certain disorders involving the immune mechanism; I25.2 Old myocardial infarction; Z95.5 Presence of coronary angioplasty implant and graft; Z72.89 Other problems related to lifestyle; Y92.9 Unspecified place or not applicable; K59.00 Constipation, unspecified; G93.89 Other specified disorders of brain
CPT/HCPCS: 33208; 36415; 36620; 70450; 71045; 71046; 80048; 80053; 81003; 82140; 83735; 84100; 84484; 85025; 85027; 85610; 85730; 86140; 87641; 93005; 93306; 99156; 99157; 99285; A9270-GY; C1713; C1776; C1785; C1898; C9132; G8978-GP-CH; G8979-GP-CH; G8980-GP-CH; J0690; J1100; J1160; J2001; J2150; J2250; J2310; J2405; J2704; J2765; J3010; J3430; J3475

== ENCOUNTER 2017-11-22 12:13 | Observation (INO) | payer MEDICARE ==
--- NOTE | 2017-11-22 12:37 | ED ---
HPI Cardiac - HPI Summary HPI Summary: The pt is a 72 y/o male presenting to [facility] c/o palpitations since 3 days ago worse today. He notes hypotension and fatigue. He reports that the sx began on 08/20/2017 when he started taking Metoprolol. He had a cardiovert performed, and pacemaker placed, The pt was discharged 5 days ago after a subdural hematoma. 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 Onset/Duration: Started Days Ago - 3 days, Still Present Timing: Constant, Lasting Days Current Severity: None Pain Intensity: 0 Pain Scale Used: 0-10 Numeric - Additional Pertinent History Primary Care Physician: ANDREY - Allergy/Home Medications Allergies/Adverse Reactions: Allergies Allergy/AdvReac Type Severity Reaction Status Date / Time No Known Allergies Allergy Verified 11/22/17 12:56 PMH/Surg Hx/FS Hx/Imm Hx Previously Healthy: No Endocrine/Hematology History: Denies: Hx Diabetes, Other Endocrine/Hematological Disorders Cardiovascular History: Reports: Hx Atrial Fibrillation, Hx Coronary Artery Disease, Hx Myocardial Infarction, Hx Pacemaker/ICD - 10/2017, Other Cardiovascular Problems/Disorders - cardiac stent Denies: Hx Congestive Heart Failure, Hx Hypertension Respiratory History: Denies: Other Respiratory Problems/Disorders GI History: Denies: Other GI Disorders History: Denies: Other Problems/Disorders Musculoskeletal History: Reports: Other Musculoskeletal History - neck injury a couple of months ago Sensory History: Reports: Hx Contacts or Glasses Denies: Hx Legally Blind, Hx Deafness, Hx Hearing Aid, Other Sensory Impairments Opthamlomology History: Reports: Hx Contacts or Glasses Denies: Hx Legally Blind, Other Sensory Impairments Neurological History: Denies: Other Neuro Impairments/Disorders Psychiatric History: Reports: Hx Substance Abuse - ETOH Denies: Other Psychiatric Issues/Disorders - Surgical History Surgery Procedure, Year, and Place: appendectomy, heart stent Hx Anesthesia Reactions: No Infectious Disease History: No Infectious Disease History: Denies: Traveled Outside the [place] in Last 30 Days - Family History Known Family History: Negative: Cardiac Disease, Hypertension, Diabetes - Social History Occupation: Employed Full-time Lives: With Family Alcohol Use: Daily Alcohol Amount: 6 beers/day Hx Substance Use: No Substance Use Type: Reports: None Hx Tobacco Use: Yes Smoking Status (MU): Current Every Day Smoker Type: Cigarettes Amount Used/How Often: 1/2 ppd x40 years Have You Smoked in the Last Year: Yes Review of Systems Positive: Fatigue Cardiovascular: Other - Positive: hypotension measured at home Positive: Palpitations All Other Systems Reviewed And Are Negative: Yes Physical Exam - Summary Physical Exam Summary: Appearance: The patient is well-nourished in no acute distress and in no acute pain. Skin: The skin is warm and dry and skin color reflects adequate perfusion.Surgical wound on the scalp is clean and healing well HEENT: The head is normocephalic and atraumatic. The pupils are equal and reactive. The conjunctivae are clear and without drainage. Nares are patent and without drainage. Mouth reveals moist mucous membranes and the throat is without erythema and exudate. The external ears are intact. The ear canals are patent and without drainage. The tympanic membranes are intact. Neck: The neck is supple with full range of motion and non-tender. There are no carotid bruits. There is no neck vein distension. Respiratory: Chest is non-tender. Lungs are clear to auscultation and breath sounds are symmetrical and equal. Cardiovascular: Irregularly irregular heart rate.There is no murmur or rub auscultated. There is no peripheral edema and pulses are symmetrical and equal. Abdomen: The abdomen is soft and non-tender. There are normal bowel sounds heard in all four quadrants and there is no organomegaly palpated. Musculoskeletal: There is no back tenderness noted. Extremities are non-tender with full range of motion. There is good capillary refill. There is no peripheral edema or calf tenderness elicited. Neurological: Patient is alert and oriented to person, place and time. The patient has symmetrical motor strength in all four extremities. Cranial nerves are grossly intact. Deep tendon reflexes are symmetrical and equal in all four extremities. Psychiatric: The patient has an appropriate affect and does not exhibit any anxiety or depression. Triage Information Reviewed: Yes Vital Signs On Initial Exam: Initial Vitals Temp Pulse Resp BP Pulse Ox 97 F 57 18 96/69 98 11/22/17 12:14 11/22/17 12:14 11/22/17 12:14 11/22/17 12:14 11/22/17 12:14 Vital Signs Reviewed: Yes Diagnostics - Vital Signs Vital Signs Temp Pulse Resp BP Pulse Ox 11/22/17 12:14 97 F 57 18 96/69 98 - Laboratory Result Diagrams: 11/23/17 05:21 11/23/17 05:21 Lab Statement: Any lab studies that have been ordered have been reviewed, and results considered in the medical decision making process. - EKG 12:51 EKG Rhythm: Atrial Fibrillation - RVR;occassional paced escaped beat; 91 bpm EKG Interpretation: Abnormal EKG Disposition - Course Course Of Treatment: Mr. Dooley presented with a couple days of fatigue and was found to be in atrial fibrillation with RVR. He was a little bit hypotensive which seemed to be in inverse correlation with his rate. He has been taken off his anticoagulant because of her recent subdural hematoma. The hospitalists have been asked to admit him as he may need cardioversion. - Diagnoses Provider Diagnoses: Atrial fibrillation with rapid ventricular response - Physician Notifications Discussed Care Of Patient With: Fernando Uriostegui - Log Operations Coordinator Time Discussed With Above Provider: 14:00 Instructed by Provider To: Other - Dr. Uriostegui recommended giving the patient beta blockers and consulting the hospitalist about admission. - Critical Care Time Critical Care Time: 30-74 min Discharge - Sign-Out/Discharge Documenting (check all that apply): Patient Departure - Discharge Plan Condition: Stable Disposition: ADMITTED TO [facility] - Billing Disposition and Condition Condition: STABLE Disposition: Admitted to [facility] - Attestation Statements Document Initiated by Scribe: Yes Documenting Scribe: Lia Chao Provider For Whom Scribe is Documenting (Include Credential): Dr. Dwain Dias MD Scribe Attestation: Lia Cohwdary , scribed for Dr. Dwain Dias MD on 11/23/17 at 1502. Scribe Documentation Reviewed: Yes Provider Attestation: The documentation as recorded by the kalenibLia flores accurately reflects the service I personally performed and the decisions made by me, Dr. Dwain Dias MD Consult Consult: 14:30 - Dr. Maxim Aquino DO agreed to admit the pt.
[2017-11-22 12:57] LABS: ABS Basophils 0 10^3/ul (0-0.2); ABS Eosinophils 0.1 10^3/ul (0-0.6); ABS Lymphocytes 1.5 10^3/ul (1.0-4.8); ABS Monocytes 0.8 10^3/ul (0-0.8); ABS Neutrophils 6.8 10^3/ul (1.5-7.7); ABS Nucleated RBC 0 10^3/ul; Hematocrit 40 % (42-52); Hemoglobin 13.2 g/dl (14.0-18.0); Lymphocyte % 16.8 % (25-47); Mean Corpuscular HGB Conc 34 g/dl (31-36); Mean Corpuscular Hemoglobin 31 pg (27-31); Mean Corpuscular Volume 92 fL (80-94); Mean Platelet Volume 9.2 um3 (7.4-10.4); Nucleated Red Blood Cells % 0.1; Platelet Count 183 10^3/ul (150-450); Red Blood Count 4.29 10^6/ul (4.00-5.40); Red Cell Distribution Width 14 % (10.5-15); White Blood Count 9.2 10^3/ul (3.5-10.8)
[2017-11-22 13:02] LABS: INR 1.06 (0.77-1.02)
--- OUTSIDE RECORDS SUMMARY | 2017-11-22 13:10 | XMS REPORT ---
:1945 External Reference #:[id number] Author Organization [facility] Address [address] [place] [id number] Phone [phone] Care Team Providers Name Role Phone Douglas Rodriguez N.P. Care Team Information Clinical Dental Technician Unavailable Payers Type Date Identification Numbers Payment Provider Subscriber Commercial Effective: Policy Number: [employer] Medicare Phillip Dooley 2012 [id number] Solutions Group Number: [id number] [address] [id number] PayID: [id number] [place] [address] Problems Date Description Provider Status Onset: 07/12/2014 Benign hypertension Douglas Rodriguez, N.PKip Active Onset: 09/14/2017 Atrial fibrillation Douglas Rodriguez N.Kate Active Onset: 09/16/2017 Placement of stent in coronary artery Douglas Rodriguez, N.PKip Active Onset: 11/19/2017 Cardiac pacemaker in situ Douglas Rodriguez N.Kate Active Family History Date Family Member(s) Problem(s) Comments Father TIA age 90 Mother due to Stroke () - age 87 First Daughter Good Health First Brother Good Health Second Brother Good Health First Sister Good Health Social History Type Date Description Comments Marital Status 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 ETOH Use Occasionally consumes alcohol Smoking Patient is a former smoker quit 2009 Allergies, Adverse Reactions, Alerts Date Description Reaction Status Severity Comments 01/08/2012 NKDA active Medications Medication Date Status Form Strength Qnty SIG Indications Ordering Provider Metoprolol 00// Active Tablets 25mg 1 by mouth Unknown Succinate ER 0000 ER 24HR every day Flecainide 00// Active Tablets 100mg Unknown Acetate 0000 Levetiracetam / Active Tablets 500mg Unknown 0000 No Active Unknown Medications 2015 - 2017 Augmentin 05/13/ Hx Tablets 875-125mg 20tabs 1 by mouth Michael, 2016 - twice a Douglas, 08/28/ day x 10 N.P. 2016 days Viagra 06/20/ Hx Tablets 100mg 12tabs 1 po as Michael, 2013 - directed Douglas, 07/12/ N.P. 2014 Metoprolol / Hx Tablets 25mg 60tabs take 2 Michael, Tartrate 0000 - tablet by Douglas, 11/19/ mouth N.P. 2018 twice a day Xarelto / Hx Tablets 20mg 30tabs 1 by mouth Michael, 0000 - every day Douglas, 11/19/ N.P. 2017 Immunizations CPT Code Status Date Vaccine Lot # [id number] Given 07/12/2014 Tdap (Adacel) Ages 7 And Above Only [id number] Vital Signs Date Vital Result Comment 11/19/2017 Body Temperature 98.8 F Weight 149.00 lb Heart Rate 60 /min BP Systolic 132 mmHg BP Diastolic 80 mmHg O2 % BldC Oximetry 98 % 10/15/2017 Body Temperature 98.2 F Weight 149.25 [...] 2 Beginning 05/17/06 PSA values assayed at [facility] [employer] uses chemiluminescence methodology manufactured by [employer] for use on the DXI analyzer. Values [...] 12 Beginning 05/17/06 PSA values assayed at [facility] uses chemiluminescence methodology manufactured by [employer] for use on the DXI analyzer. Values [...] 19 Beginning 05/17/06 PSA values assayed at [facility] [employer] uses an EIA methodology manufactured by [employer] for use on the DXI analyzer. Values obtained with different assay methods or kits can not be used interchangeably. Serum PSA measurement is not an absolute test for malignancy. The PSA value should be used in conjunction with information available from clinical evaluation and other diagnostic procedures. 20 HOSPITAL UNIT CLERK This sample is drawn by[facility] 21 Per [...] 26 Beginning 05/17/06 PSA values assayed at [facility] [employer] uses an EIA methodology manufactured by [employer] for use on the DXI analyzer. Values [...] 30 Beginning 05/17/06 PSA values assayed at [facility] [employer] uses an EIA methodology manufactured by [employer] for use on the DXI analyzer. Values [...] Procedures Date CPT Code Description Status 09/14/2017 91645 Electrocardiogram Complete Completed 05/13/2015 79176 Repair Superfic Wound < 2.6CM Completed Scalp/Neck/Axil/Genit/Trunk/Extr 01/12/2013 41067 Visual Screening Test Completed 01/08/2012 79305 Electrocardiogram Complete Completed Encounters Type Date Location Provider CPT E/M Dx Office Visit 10/15/2017 11:30a Douglas Jacques, N.P. 46546 R51 R00.1 I48.91 Office Visit 09/14/2017 3:15p Douglas Jacques, N.P. G0439 Z00.01 I48.91 R53.83 R63.4 Office Visit 09/04/2016 8:30a Douglas Jacques, N.P. G0439 Z00.8 Z11.59 Z13.220 Z12.5 D17.0 Z23 Z72.89 Office Visit 08/29/2015 1:45p Douglas Jacques, N.P. G0439 Z13.220 Z12.5 E78.2 Z00.8 Office Visit 05/23/2015 8:45a Douglas Jacques, N.P. 37435 S61.412D Office Visit 07/12/2014 1:15p Douglas Jacques, N.P. G0439 780.79 V77.91 V76.44 V06.1 Office Visit 08/04/2013 8:30a Douglas Jacques, N.P. 44079 780.93 Office Visit 2013 1:15p Douglas Jacques, N.P. 81353 302.72 Office Visit 01/08/2012 9:00a Douglas Jacques N.P. 88511 780.79 V76.44 V77.91 V70.0 Plan of Care Future Appointment(s):02/18/2018 11:30 am - Douglas Rodriguez N.P. at [id number] - Douglas Rodriguez N.P.S06.5x9D Traum subdr hem w Loc of unsp duration , subsComments:pt is doing well since hosp. discharge he intends to cont med sand follow-up with Dr. Smallwood-neuro surgeonhe agrees to reprot to ER immediately for any probs his daughter will be caring for pt-help organize appoints, accompany pt to appointments, drive, help with meals. well healing scalp woundall hospital and d/c records reviewed with pt and daughter and all questions [id number] Sick sinus syndromeComments:doing well since hosp d/c. pt intends to cont meds and f/u with helminthology teacher as plannedhe agrees to report to ER for any CP/SOB/palpas/ weakness should it occur
--- OUTSIDE RECORDS SUMMARY | 2017-11-22 13:11 | XMS REPORT ---
:1945 External Reference #:[id number] Author Organization [facility] [employer] Address [address] [place] [address] Phone [phone] Care Team Providers Name Role Phone Douglas Rodriguez NP Primary Care Physician Unavailable Payers Type Date Identification Numbers Payment Provider Subscriber Health Maintenance Policy Number: [employer] Medicare Ilsa Wagner (HMO) [id number] [employer] PayID: [id number] [address] [address] [place] [address] Problems Description No Information Family History Date Family Member(s) Problem(s) Comments Onset: (age 90 Years) Father TIA Onset: (age 87 Years) Mother Stroke d/t Social History Type Date Description Comments Marital Status 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 ETOH Use Occasionally consumes alcohol Smoking Patient is a former smoker quit in 2009 Recreational Drug Use Denies Drug Use Allergies, Adverse Reactions, Alerts Date Description Reaction Status Severity Comments 11/03/2017 NKDA active Medications Medication Date Status Form Strength Qnty SIG Indications Ordering Provider Xarelto Active Tablets 20mg 1 by Unknown 00 mouth every day Metoprolol Active Tablets 25mg 1 by Unknown Tartrate 00 mouth twice a day Results Test Date Test Result H/L Range Note Laboratory test finding 11/11/2017 MRSA Screen SEE RESULT BELOW 1, 2 1 Verbal to [id number] by [id number] at 0306 on 11/11/17. Results read back accurately. VERBAL 2 SEE RESULT BELOW Name: ILSA DINH : [address]: Dwain Camacho MD Acct: [id number] Unit: [id number] AGE: 72 Location: ED Re11/10/17 SEX: M Status: REG ER SPEC: [id number] JALEN: 11/11/[address]: Dwain Camacho MD REQ: [id number] RECD: 11/11/17 STATUS: COMP OTHR DR: Efrain Rodriguez LOG GETTER _ SOURCE: NASAL SPDESC: ORDERED: MRSA PCR-Nasal COMMENTS: Verbal to [id number] by [id number] at 0306 on 11/11/17. Results read back accurately. VERBAL ORDER taken from INSPECTOR BARREL BY [id number] ON 11/11/17 at 0515 for test(s):MRSA Procedure Result Reported Site MRSA PCR (Nasal) Final 11/11/17- 0516 ML Organism 1 MRSA NOT DETECTED * ML - Main Lab . END OF REPORT DEPARTMENT OF PATHOLOGY, [address] [place] [address] Donnell Ortiz M.D. Director [facility] # [id number] Procedures Date CPT Code Description Status 01/11/2005 06379 EKG, Interpretation Only Completed Plan of Care Future Appointment(s):11/17/2017 2:00 pm - Joe Fonseca M.D. at [facility]
[2017-11-22 13:14] LABS: EGFR Non-African American 77.4 (>60)
[2017-11-22] MEDS ORDERED: Metoprolol Tartrate IV* 1 MG/ML 5 ML VIAL IV ONE (14:02)
[2017-11-22] MEDS ORDERED: Acetaminophen TAB* 325 MG PO PRN (15:07)
--- NOTE | 2017-11-22 18:38 | HP ---
CC: Douglas Rodriguez NP; Dr. Joe Fonseca; Dr. Smallwood * HISTORY AND PHYSICAL: DATE OF ADMISSION: 11/22/17 PRIMARY CARE PROVIDER: Douglas Rodriguez NP ATTENDING PHYSICIAN WHILE IN THE HOSPITAL: Kenia Pan DO * (report dictated by Jose Alejandro Becerra NP). CHIEF COMPLAINT: 1. Fatigue. 2. Not feeling well. 3. Irregular heartbeat. 4. Hypotension. HISTORY OF PRESENT ILLNESS: Mr. Dooley is a 72-year-old male patient who was just discharged last Wednesday. He was admitted here. He was noted to be having mental status changes. He was ultimately found on the to have a subdural hematoma and was taken urgently to the OR with Dr. Smallwood, he underwent an evacuation. Last year, he was diagnosed with sick sinus syndrome and a pacemaker was applied. He does have a known history of sick sinus syndrome , AFib, CAD, and MD about 14 years ago and history of subdural hematoma. He was discharged on the on flecainide. He was discharged on 25 mg metoprolol XL daily and Keppra, and he was started on a probiotic. Since going home, he has noted that intermittently at times his blood pressure in the morning has been low as well as systolics in the 90s and upper 80s at times. He has also noted that he has had intermittent episodes of feeling palpitations and having a rapid heartbeat and feeling just he is sluggish and fatigued. He denies anymore headaches. He denied having any episodes of confusion or drowsiness. He denied having any weaknesses to the right or left side. Denied any visual disturbances and he said that his incisions have been doing well. No redness, no drainage. He denied having any chest pain with the exception when he moves his left arm that is where the pacemaker pocket is, he does get some pain there at times, but there has been no chest heaviness, pressure. Denied any shortness of breath. Denied any weight changes. There was no appreciated swelling or shortness of breath. He says his biggest complaint was feeling fatigued and then noting that on his heart rate monitor his heart rate had been elevated at times as high as according to his machine 130. He says he has not transmitted his pacemaker data yet and he neither does have a landline, so the pacemaker information is unknown to us at this point. He came into the ED today because again this morning after taking his medications, again his blood pressure has been on the lower side, he was feeling fatigued, he noted his heart rate was up and he decided to come into the ER. PAST MEDICAL HISTORY: Significant for: 1. Subdural hematoma. 2. AFib. 3. Sick sinus syndrome. 4. CAD. 5. MD. PAST SURGICAL HISTORY: 1. He has had a pacemaker placement just done last week. 2. Craniotomy. 3. Cardiac catheterization. 4. Appendectomy. MEDICATIONS: Home medications according to his discharge just last week include : 1. Tylenol 650 mg every 6 hours as needed. 2. Keflex 250 mg t.i.d., which he has finished. 3. Colace 100 mg daily, which he is not taking. 4. Flecainide 100 mg p.o. b.i.d. 5. [place] 1 to 2 tablets every 4 hours as needed. He is no longer taking it. 6. Floranex 2 tablets p.o. daily. 7. Keppra 500 mg p.o. b.i.d. 8. Toprol-XL 25 mg daily. 9. Senna 1 tablet daily, he is no longer taking. 10. Simethicone 80 mg p.o. every 6 hours as needed. ALLERGIES: His allergies to medications include no known drug allergies. FAMILY HISTORY: His mother had a history of intracranial hemorrhage. Father of old age in his 90s. SOCIAL HISTORY: He is half-a-pack a day smoker for about 40 years. He occasionally drinks alcohol. He says he will drink 6 beers in a week's time. His surrogate decision maker is his daughter. REVIEW OF SYSTEMS: There is no documented fever. He denied having any significant weight change. No double vision. No ear discharge. Denied having rhinorrhea. No sore throat. No thyroid enlargement. Denied having any chest pain. There was no orthopnea, no nocturnal dyspnea. No abdominal pain, no nausea, no vomiting. No dysuria, no frequency. No seizure, no loss of consciousness. No pruritus and no skin ulcerations. Review of 14 systems was completed, all others negative. PHYSICAL EXAMINATION GENERAL: At this time, Mr. Dooley is a 72-year-old male patient. He is sitting in the ED stretcher. He does not appear to be in any acute distress. VITAL SIGNS: Blood pressure 112/76, pulse 88, respirations were 18, O2 sat 99% , temperature 97. HEENT: Head: Along his left temporal lobe and to his occipital area, he has an incision, which is stapled. The incision is well approximated. No erythema was noted. It appears to be noninfected and stable. No discharge is noted. Otherwise, his head was atraumatic. His sclerae were anicteric, not pale. Throat: Oral mucosa appears to be moist. No oropharyngeal erythema. NECK: Supple. LUNGS: Clear to auscultation bilaterally. No wheezes, rales, or rhonchi. HEART: Sounds S1, S2. He had irregularly irregular rate. No murmurs, rubs, or gallops. ABDOMEN: Soft. It was flat, nontender. Bowel sounds were present. EXTREMITIES: Pulses were 2+ throughout. He had no peripheral edema. He is moving all 4 extremities with 5/5 strength. NEUROLOGIC: The patient is awake. He is alert. His cranial nerves II through XII were intact. His division merchandise manager were equal. Tongue is midline. He is oriented x3. Finger- to-nose and [id number] intact bilaterally. He had no gross focal deficits. SKIN: Intact with exception he has an incision to his left chest wall and to the left temporo-occipital and frontal area of his head and scalp. Both incisions are clean, dry, and intact, open to air, well approximated with no signs of erythema. DIAGNOSTIC STUDIES/LAB DATA: Today, WBC of 9.2, RBC of 4.29, hemoglobin of 13.2, hematocrit of 40, platelet count of 183. INR 1.06. Sodium 136, potassium of 4.3, chloride of 104, bicarb 26, BUN 26, creatinine 0.96, glucose 107, lactic 1.4, calcium 8.9. Mag 2.0. Total bili 0.3, AST 15, ALT 15, alk phos 58. Troponin 0. Albumin 3.4. TSH 1.23. He did have an EKG obtained today, which shows atrial flutter with 1 paced beat. Inverted T-waves were noted in lead II, III, and aVF. He had no ST elevation. Reviewing the previous EKGs, the previous EKGs were paced rhythms. Old medical records were reviewed. ASSESSMENT AND PLAN: Mr. Dooley is a 72-year-old male patient coming into the ED today with complaints of hypotension, fatigue, not feeling well, noted to have irregular heartbeat at times in addition to his hypotension. We were asked to evaluate for admission. He will be admitted under observation status for: 1. Atrial fibrillation. Again, it is noted on his records that he is having what appears to be rapid ventricular response. The question is if this is what is causing him to have these episodes of hypotension and feeling sluggish. Also question if it is the dosing of his metoprolol may be contributing to that fatigued feeling. I am going to switch him back to immediate release 12.5 twice a day. I am also going to get a pacemaker interrogation. Should we have trouble with rate control, we will touch base with Cardiology in the morning. He is not a candidate for anticoagulation given the fact that he had a recent subdural hematoma. We will continue his flecainide. We will continue Lopressor , the tartrate, and we will place him on telemetry and we will continue to follow. His lytes are stable. 2. History of subdural hematoma. He can follow up with Dr. Smallwood. He is neurologically intact. I do have a courtesy call out to Dr. Smallwood to let him know that the patient is being readmitted; he has a scheduled followup appointment with the patient on Wednesday. Should he have any deterioration, we certainly would get him involved more urgently. He will be placed on neuro checks every shift and seizure precautions. We will continue his Keppra. 3. Sick sinus syndrome. Again, he has a pacemaker and we are going to interrogate that. 4. Coronary artery disease. At some point, we may need to consider putting him on aspirin and statin, but I will defer this to his primary box estimator as now it is not the time to do this, particularly the aspirin given his recent bleed. 5. DVT prophylaxis: He will be placed on SCDs. 6. Code status: Full code. 7. Fluids, electrolytes, and nutrition: He can have a heart-healthy diet. TIME SPENT: Time spent on the admission was 60 minutes, greater than half the time was spent [id number] with the patient obtaining my history and physical, other half the time was spent going over the plan of care with the patient and implementing the plan of care. I discussed the plan of care with my attending, Dr. Pan; she is in agreement. JOSE ALEJANDRO BECERRA NP [id number]/[facility] #: [id number] MORIAH
[2017-11-22] MEDS: levETIRAcetam TAB* 500 MG PO SCH (20:31)
[2017-11-22] MEDS: Flecainide TAB* 100 MG PO SCH (20:31)
[2017-11-22] MEDS: Metoprolol Tartrate TAB* 25 MG PO SCH (20:31)
[2017-11-23 05:41] LABS: ABS Basophils 0.1 10^3/ul (0-0.2); ABS Eosinophils 0.1 10^3/ul (0-0.6); ABS Lymphocytes 1.6 10^3/ul (1.0-4.8); ABS Monocytes 0.6 10^3/ul (0-0.8); ABS Neutrophils 7.1 10^3/ul (1.5-7.7); ABS Nucleated RBC 0 10^3/ul; Eosinophil % 1.5 % (0-6); Hematocrit 39 % (42-52); Hemoglobin 13.4 g/dl (14.0-18.0); Lymphocyte % 17.1 % (25-47); Mean Corpuscular HGB Conc 34 g/dl (31-36); Mean Corpuscular Hemoglobin 31 pg (27-31); Mean Corpuscular Volume 91 fL (80-94); Mean Platelet Volume 9.6 um3 (7.4-10.4); Nucleated Red Blood Cells % 0; Platelet Count 187 10^3/ul (150-450); Red Blood Count 4.28 10^6/ul (4.00-5.40); Red Cell Distribution Width 14 % (10.5-15); White Blood Count 9.5 10^3/ul (3.5-10.8)
[2017-11-23 05:48] LABS: INR 1.06 (0.77-1.02)
[2017-11-23 05:58] LABS: EGFR Non-African American 87.9 (>60)
[2017-11-23 08:20] VITALS: BP 109/68
[2017-11-23] MEDS ORDERED: NON FORMULARY MED* (L. Acidophilus/L.Bulgaricus [Floranex Tablet] 2 CHW) PO SCH (09:00)
[2017-11-23] MEDS: Metoprolol Tartrate TAB* 25 MG PO SCH (09:30)
[2017-11-23] MEDS: Flecainide TAB* 100 MG PO SCH (09:31)
[2017-11-23] MEDS: levETIRAcetam TAB* 500 MG PO SCH (10:16)
--- NOTE | 2017-11-24 00:22 | DS ---
CC: Dr. Smallwood; Dr. Joe Fonseca.* DISCHARGE SUMMARY: DATE OF ADMISSION: 11/22/17 DATE OF DISCHARGE: 11/23/17 PATIENT OF: Admitting hospitalist Kenia Pan DO. ATTENDING HOSPITALIST WHILE PATIENT HERE: Dr. Kenia Pan.* (DICTATED BY NICK BEARD) PRIMARY CARE PROVIDER: Douglas Rodriguez NP ADMISSION DIAGNOSES: 1. Fatigue and malaise. 2. Irregular heartbeat. 3. Hypotension. 4. History of subdural hematoma. 5. History of atrial fibrillation. 6. History of sick sinus syndrome. 7. Coronary artery disease. 8. History of myocardial infarction. 9. Status post pacemaker placement 6 days ago. DISCHARGE DIAGNOSES: 1. Fatigue and malaise. 2. Irregular heartbeat. 3. Hypotension. 4. History of subdural hematoma. 5. History of atrial fibrillation. 6. History of sick sinus syndrome. 7. Coronary artery disease. 8. History of myocardial infarction. 9. Status post pacemaker placement 6 days ago. ADMITTING PHYSICIAN: Hospitalist Kenia Pan DO CONSULTATIONS: None. HISTORY OF PRESENT ILLNESS: Mr. Dooley is a 72-year-old male who was just discharged last Wednesday after he had changes in mental status back then. The patient unfortunately sustained a fall, was brought to the emergency room for evaluation and found to have a subdural hematoma. He was taken on 11/11/17 urgently to the operating room and had evacuation of subdural hematoma by Dr. Smallwood. Last year, he was diagnosed with sick sinus syndrome and a pacemaker was applied. He also has a history of atrial fibrillation and coronary artery disease. He was eventually discharged on the of this month and has an appointment to follow up with Dr. Fonseca this . He was initially discharged on a 25 mg of metoprolol extended release, Keppra, and his discharge medications were reviewed. He noted to have some fatigue and dizziness at home and took his blood pressure and noted to have systolic pressures in the 90s and upper 80s at times. He also felt some palpitation and rapid heartbeat despite his pacemaker that was placed last week. He denied any weakness to the right or the left side. He denied any blurred vision or any visual changes. He was evaluated in the emergency room and found to have stable labs with white count of 9000, hemoglobin of 13.2, and hematocrit of 40. He has not been on any anticoagulation therapy given his recent subdural hematoma. His EKG in the emergency room showed atrial flutter with 1 paced beat, some inverted T-wave, and evidence of prior PA; but there was no acute ST elevation. Given his ongoing symptoms we were asked to see the patient to admit him for observation status given his history of atrial fibrillation, hypotension, and to interrogate his pacemaker as well. HOSPITAL COURSE: The patient was admitted to the telemetry unit for observation. His metoprolol was changed from 25 mg metoprolol succinate to 12.5 mg metoprolol tartrate to be given twice daily. It was noted that his blood pressure readings have gradually improved. He spontaneously converted to sinus rhythm while at the telemetry unit over night. Repeated EKG was done in the morning that revealed sinus paced rhythm with no evidence of AFib at that time. The patient was not covered for any anticoagulation therapy because of his recent subdural hematoma. He denied any chest pain, palpitations, or lightheadedness. Dr. Smallwood was contacted the night before upon admission to be on a standby; however, the patient experienced no neurological symptoms or any seizure. He will continue on neuro checks as well as continue his Kera for seizure prophylaxis. The patient has done very well and we were able to interrogate his pacemaker. His pacer interrogated was high V rates during AT/ AF as long as long atrial tach and atrial fib episodes that exceeds AT/AF burden. This reading of the pacemaker interrogation was discussed with Dr. Cuellar. Again the patient continued to be hemodynamically stable and showed sinus rhythm return and his blood pressure had been acceptable with the discontinuation of the extended release metoprolol and using metoprolol tartrate twice daily. He will keep his followup appointment on with Dr. Fonseca and tomorrow with Dr. Smallwood for staple removal from his craniotomy incision. Again the patient has been stable and will be discharged and Dr. Cuellar had agreed and recommended followup later this week. DISCHARGE MEDICATIONS: Include: 1. Flecainide 100 mg p.o. b.i.d. 2. Acidophilus supplement 1 tablet chewable daily for 7 days. 3. Roweepra 500 mg p.o. b.i.d. 4. Metoprolol tartrate 12.5 mg p.o. b.i.d. NICK BEARD [id number]/[facility] #: [id number] [facility]
== END 2017-11-23 12:30 | disposition home or self-care (01) ==
LOC: ED 12:13 → MEDTELE 15:46
PROVIDERS: ADMIT Hospitalist; ATTEND Hospitalist
DX: I48.91 Unspecified atrial fibrillation (principal); R00.2 Palpitations; F17.210 Nicotine dependence, cigarettes, uncomplicated; R53.83 Other fatigue; I95.9 Hypotension, unspecified; I25.10 Atherosclerotic heart disease of native coronary artery without angina pectoris; Z86.79 Personal history of other diseases of the circulatory system; I49.5 Sick sinus syndrome; I25.2 Old myocardial infarction; Z95.0 Presence of cardiac pacemaker
CPT/HCPCS: 36415; 80048; 80053; 83605; 83735; 84443; 84484; 85025; 85610; 93005; 96374; 99283; A9270-GY; G0378; J3490

== ENCOUNTER 2018-05-05 20:17 | Observation (INO) | payer MEDICARE, OTHER ==
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
[2018-05-05] MEDS ORDERED: IDARUCIZUMAB* 2.5 GM/50 ML VIAL IV ONE (23:40)
[2018-05-05 23:57] LABS: ABS Basophils 0 10^3/ul (0-0.2); ABS Eosinophils 0.2 10^3/ul (0-0.6); ABS Lymphocytes 1.9 10^3/ul (1.0-4.8); ABS Monocytes 0.5 10^3/ul (0-0.8); ABS Nucleated RBC 0 10^3/ul; Eosinophil % 2.4 %; Hematocrit 41 % (42-52); Hemoglobin 13.5 g/dl (14.0-18.0); Lymphocyte % 28.5 %; Mean Corpuscular HGB Conc 33 g/dl (31-36); Mean Corpuscular Hemoglobin 30 pg (27-31); Mean Corpuscular Volume 91 fL (80-94); Mean Platelet Volume 9.3 fL (7.4-10.4); Nucleated Red Blood Cells % 0; Platelet Count 151 10^3/ul (150-450); Red Blood Count 4.53 10^6/ul (4.00-5.40); Red Cell Distribution Width 15 % (10.5-15); White Blood Count 6.6 10^3/ul (3.5-10.8)
[2018-05-06 00:10] LABS: INR 1.07 (0.77-1.02)
[2018-05-06 00:12] LABS: ALT 22 U/L (7-52); AST 24 U/L (13-39); Albumin 3.8 g/dL (3.2-5.2); Albumin/Globulin Ratio 1.4 (1-3); Alkaline Phosphatase 67 U/L (34-104); Anion Gap 5 mmol/L (2-11); BUN/Creatinine Ratio 28.2 (8-20); Blood Urea Nitrogen 22 mg/dL (6-24); CO2 Carbon Dioxide 26 mmol/L (22-32); Calcium 9.2 mg/dL (8.6-10.3); Chloride 106 mmol/L (101-111); EGFR African American 119.1 (>60); EGFR Non-African American 98.4 (>60); Globulin 2.8 g/dL (2-4); Glucose 83 mg/dL (70-100); Potassium 3.7 mmol/L (3.5-5.0); Sodium 137 mmol/L (135-145); Total Protein 6.6 g/dL (6.4-8.9)
[2018-05-06] MEDS ORDERED: Acetaminophen TAB* 325 MG PO PRN (01:04)
[2018-05-06] MEDS ORDERED: Al Hydrox/Mg Hydrox/Simet LIQ* 30 ML UDC PO PRN (01:04)
[2018-05-06] MEDS ORDERED: Ondansetron INJ* 2 MG/ML VIAL IV PRN (01:04)
[2018-05-06 01:14] LABS: Alcohol < 10 mg/dL (<10); Digoxin 1.9 ng/ml (0.8-2.0)
--- NOTE | 2018-05-06 04:47 | HP ---
CC: Douglas Rodriguez NP; Bhavik Mcclure MD * HISTORY AND PHYSICAL: DATE OF ADMISSION: 05/06/18 TIME OF EVALUATION: 0100. PRIMARY CARE PHYSICIAN: Douglas Rodriguez NP SURGERY AID: Bhavik Mcclure MD CHIEF COMPLAINT: Headache. HISTORY OF PRESENT ILLNESS: This is a 72-year-old male with a past medical history of subdural hematoma, status post craniotomy back in August while he was on anticoagulation. He presents to the emergency room after being restarted on Pradaxa 6 days ago when at 5 a.m. this morning, he was getting meat off the freezer up top. The top box that he had not realized was there, slid and landed on the top of his head and it weighs about 10 pounds. This occurred at 5 a.m. He did not fall. He did not lose consciousness. He was not nauseated. He started to develop the worsening frontal headache and given his history, he thought he should come to the emergency room for further evaluation. He denies any confusion or vision changes. No nausea or vomiting. In the emergency room, the patient had labs imaging. The head CT showed a new small frontal subdural hematoma. Neurosurgery was contacted. Dr. Machuca said there was nothing to do. He was given Praxbind in the emergency room and referred to the hospitalist service for further evaluation. PAST MEDICAL HISTORY: 1. History of paroxysmal atrial fibrillation. He states he resumed Pradaxa on 04/29/18 in anticipation for ablation and implant. 2. History of subdural hematoma, status post craniotomy in August 2017. The patient was on anticoagulation since then, was on anticoagulation at that time. 3. History of sick sinus syndrome, status post pacemaker. 4. History of coronary artery disease. MEDICATIONS: 1. Pradaxa 150 mg p.o. daily. 2. Tylenol 650 mg every 6 hours as needed. 3. Diltiazem CD 120 mg p.o. daily. 4. Digoxin 0.125 mg 2 tabs in the morning and 1 tab at noon. 5. Metoprolol tartrate 12.5 mg p.o. b.i.d. ALLERGIES: No known drug allergies. FAMILY HISTORY: Reviewed and noncontributory. SOCIAL HISTORY: The patient lives alone. He is independent of ADLs. 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 He is still smoking about less than a half a pack per day off and on for the past 20 years. No alcohol use. He stopped as it was triggering him to go into AFib. His healthcare proxy is his daughter, Allie. CODE STATUS: Full code. REVIEW OF SYSTEMS: A 14-point review of systems as mentioned in the HPI, otherwise negative. PHYSICAL EXAMINATION GENERAL: No acute distress, resting comfortably. VITAL SIGNS: Temp 97, pulse rate 60, respiratory rate 18, oxygen saturation 99 % on room air, blood pressure 145/87. HEENT: Head: Normocephalic. No hematoma, no step-off, no obvious trauma on his head. Pupils are equal and reactive. Oropharynx: Mucous membranes are moist. NECK: Supple. No adenopathy. RESPIRATORY: Diminished breath sounds. No wheezing, rhonchi, or rales. CARDIAC: Regular rate and rhythm. Soft systolic murmur heard throughout. ABDOMEN: Positive bowel sounds, soft, nontender, nondistended. EXTREMITIES: No clubbing, cyanosis, or edema. +1 DPs. NEUROLOGIC: Alert and oriented x3. No gross focal neurologic deficits. Negative pronator drift. DIAGNOSTIC STUDIES/LAB DATA: White count 6.6, hemoglobin 13.5, hematocrit 41, platelets 151. INR is 1.07. Sodium 137, potassium 3.7, chloride 106, bicarb 26 , BUN 22, creatinine 0.78. Dig level 1.9. Alcohol level less than 10. Radiographic data: Head CT showed successful evacuation of a right subdural hematoma. New hemorrhagic lesion is seen in the posterior aspect of the right fontal lobe adjacent to the right occipital horn. Previous left frontal craniotomy. Under the craniotomy flap, there is a dural thickening with calcification. This was seen on prior CT in December 2017, unchanged. ASSESSMENT AND PLAN: This is a 72-year-old male, who recently started Pradaxa for his paroxysmal atrial fibrillation in anticipation for ablation and implant , who presented to the emergency room for worsening headache after a 10-pound box of meat fell on his head at 5 a.m. this morning. He was found to have a small subdural hematoma. Subdural hematoma. Assessment: Small subdural. No intervention per Dr. Machuca. Neurologically intact. He did receive Praxbind in the emergency room. Plan: I will admit him to the ICU for close neurologic monitoring. It is reassuring that he is almost 24 hours out from his initial injury. We will continue neuro checks q.2. Of course, we will hold his Pradaxa and any further anticoagulation. Follow up with Neurosurgery and he will likely need a repeat head CT in 24 hours. CHRONIC MEDICAL PROBLEMS: History of paroxysmal atrial fibrillation. We will resume his diltiazem, his digoxin, and metoprolol. Holding his Pradaxa. Would consider touching base with Cardiology to let them know of his subdural hematoma as they will have to either postpone or cancel indefinitely this ablation and implant as the patient does not appear a good candidate for anticoagulation. FEN: Regular diet. DVT prophylaxis. The patient scores moderate risk. Place him on SCDs. Code status. Full code. PATIENT TIME: Greater than 30 minutes was spent doing the history and physical , more than half the time spent in direct patient contact. [id number]/[facility]PS #: [id number] MORIAH
[2018-05-06 05:22] LABS: ABS Basophils 0 10^3/ul (0-0.2); ABS Eosinophils 0.1 10^3/ul (0-0.6); ABS Lymphocytes 1.1 10^3/ul (1.0-4.8); ABS Monocytes 0.5 10^3/ul (0-0.8); ABS Neutrophils 4.5 10^3/ul (1.5-7.7); ABS Nucleated RBC 0 10^3/ul; Eosinophil % 2.4 %; Hematocrit 40 % (42-52); Hemoglobin 13.4 g/dl (14.0-18.0); Lymphocyte % 17.4 %; Mean Corpuscular HGB Conc 33 g/dl (31-36); Mean Corpuscular Hemoglobin 30 pg (27-31); Mean Corpuscular Volume 90 fL (80-94); Mean Platelet Volume 9.7 fL (7.4-10.4); Nucleated Red Blood Cells % 0; Platelet Count 139 10^3/ul (150-450); Red Blood Count 4.48 10^6/ul (4.00-5.40); Red Cell Distribution Width 15 % (10.5-15); White Blood Count 6.2 10^3/ul (3.5-10.8)
--- NOTE | 2018-05-06 07:43 | PN ---
Subjective Date of Service: 05/06/18 Interval History: Received a page from [facility] who mentioned pt had been evaluated by [facility] around 2 AM and recommended Keppra 500 PO BID. Objective Active Medications: Acetaminophen (Tylenol Tab*) 650 mg PO Q4H PRN PRN Reason: FEVER/PAIN Al Hydrox/Mg Hydrox/Simethicone (Maalox Plus*) 30 ml PO Q6H PRN PRN Reason: INDIGESTION Digoxin (Lanoxin Tab*) 0.125 mg PO 1200 PRIYANKA Digoxin (Lanoxin Tab*) 0.25 mg PO 0900 PRIYANKA Diltiazem HCl (Cardizem Cd Cap*) 120 mg PO DAILY PRIYANKA Levetiracetam (Keppra Tab*) 500 mg PO BID PRIYANKA Metoprolol Tartrate (Lopressor Tab*) 12.5 mg PO Q12HR PRIYANKA Ondansetron HCl (Zofran Inj*) 4 mg IV Q4H PRN PRN Reason: NAUSEA/VOMITING Vital Signs - 8 hr 05/05/18 05/05/18 05/06/18 23:49 23:51 00:00 Temperature Pulse Rate 60 60 60 Respiratory 18 18 20 Rate Blood Pressure 139/84 (mmHg) O2 Sat by Pulse 99 98 98 Oximetry 05/06/18 05/06/18 05/06/18 00:29 00:42 00:46 Temperature Pulse Rate 60 Respiratory 16 16 Rate Blood Pressure 154/86 134/82 168/97 (mmHg) O2 Sat by Pulse 98 Oximetry 05/06/18 05/06/18 05/06/18 00:59 01:01 01:04 Temperature 98.7 F Pulse Rate 60 Respiratory 16 13 14 Rate Blood Pressure 141/87 133/86 (mmHg) O2 Sat by Pulse 98 Oximetry 05/06/18 05/06/18 05/06/18 01:14 01:29 01:44 Temperature Pulse Rate Respiratory 16 19 15 Rate Blood Pressure 151/89 138/89 155/94 (mmHg) O2 Sat by Pulse Oximetry 05/06/18 05/06/18 05/06/18 01:59 02:01 02:04 Temperature 97.0 F Pulse Rate 60 Respiratory 17 13 18 Rate Blood Pressure 145/87 145/87 (mmHg) O2 Sat by Pulse 99 Oximetry 05/06/18 05/06/18 05/06/18 02:14 02:27 02:30 Temperature Pulse Rate 60 60 60 Respiratory 14 16 15 Rate Blood Pressure 131/84 138/81 133/86 (mmHg) O2 Sat by Pulse 97 99 98 Oximetry 05/06/18 05/06/18 05/06/18 02:37 02:45 03:00 Temperature 98.7 F Pulse Rate 60 60 61 Respiratory 14 15 16 Rate Blood Pressure 133/86 143/85 150/88 (mmHg) O2 Sat by Pulse 98 97 99 Oximetry 05/06/18 05/06/18 05/06/18 03:01 03:15 03:30 Temperature Pulse Rate 60 60 60 Respiratory 21 13 14 Rate Blood Pressure 145/90 144/84 (mmHg) O2 Sat by Pulse 100 100 99 Oximetry 05/06/18 05/06/18 05/06/18 03:35 03:45 04:00 Temperature 97.4 F Pulse Rate 60 60 Respiratory 14 14 Rate Blood Pressure 150/83 141/81 (mmHg) O2 Sat by Pulse 98 98 Oximetry 05/06/18 05/06/18 05/06/18 04:01 04:15 04:30 Temperature Pulse Rate 60 60 60 Respiratory 13 15 14 Rate Blood Pressure 143/82 140/83 (mmHg) O2 Sat by Pulse 98 99 98 Oximetry 05/06/18 05/06/18 05/06/18 04:45 05:00 05:01 Temperature Pulse Rate 60 60 60 Respiratory 16 13 15 Rate Blood Pressure 151/87 141/87 (mmHg) O2 Sat by Pulse 97 98 98 Oximetry 05/06/18 05/06/18 05/06/18 05:28 05:30 05:45 Temperature Pulse Rate 60 60 60 Respiratory 13 16 15 Rate Blood Pressure 140/82 145/82 133/76 (mmHg) O2 Sat by Pulse 97 97 97 Oximetry 05/06/18 05/06/18 05/06/18 06:00 06:01 06:15 Temperature Pulse Rate 60 60 61 Respiratory 16 14 15 Rate Blood Pressure 134/77 133/82 (mmHg) O2 Sat by Pulse 97 97 97 Oximetry 05/06/18 05/06/18 05/06/18 06:30 06:45 07:00 Temperature Pulse Rate 60 60 62 Respiratory 14 15 13 Rate Blood Pressure 147/86 147/77 137/85 (mmHg) O2 Sat by Pulse 99 97 98 Oximetry 05/06/18 05/06/18 05/06/18 07:01 07:15 07:31 Temperature Pulse Rate 60 60 61 Respiratory 22 19 14 Rate Blood Pressure 149/88 147/91 (mmHg) O2 Sat by Pulse 99 99 98 Oximetry Oxygen Devices in Use Now: None Result Diagrams: 05/06/18 05:12 05/05/18 23:46 Microbiology and Other Data: Microbiology 05/06/18 03:30 Nasal Screen MRSA (PCR) - Final Nasal Mrsa Not Detected Assess/Plan/Problems-Billing Assessment:
--- NOTE | 2018-05-06 07:59 | CONS ---
CONSULTATION NOTE: DATE OF CONSULT: 05/06/18 HISTORY OF PRESENT ILLNESS: The patient is a very pleasant 72-year-old gentleman who has a history of left craniotomy for evacuation of subdural hematoma by Dr. Smallwood followed by right frontal clair hole and right posterior frontal clair hole evacuation of subdural hematoma by Dr. Smallwood, who presented today after reported head injury. 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 He did not lose his consciousness. He did not fall down. He had no seizures. He denies any vision or speech problems. He denies any neck or back pain. He denies any weakness, numbness, or tingling of his extremities. He ambulates without difficulty. He denies urinary or GI incontinence. The patient was concerned because of the history of his previous subdural hematoma as well as the recent start of Pradaxa for atrial fibrillation. I requested to see the patient by ED Service because of the CT scan of the brain findings consistent with small right posterior frontal hemorrhagic contusion. The patient reports that he is a . 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 PAST MEDICAL HISTORY: Atrial fibrillation; coronary artery disease, status post MN; history of pacemaker and heart stent placement. PAST SURGICAL HISTORY: Subdural evacuation as stated above x3, appendectomy, heart stent, defibrillator. MEDICATIONS: The patient was on Pradaxa. ALLERGIES: No known drug allergies. SOCIAL HISTORY: Tobacco: Positive. Alcohol: Negative. Recreational use: Negative. PHYSICAL EXAM: The patient is not in acute distress. He is awake, alert, oriented x3. His pupils are equal and reactive. Cranial nerves II through XII are grossly intact. Motor is 4-5/5 in all extremities. No pronator drift. Sensory is grossly intact to light touch. Deep tendon reflexes +1 bilaterally. No clonus. No Babinski. Lutz is negative. Straight leg raise is negative in the sitting position. The patient is nontender to palpation in the cervical, thoracic, and lumbar spine. He has free range of motion of cervical spine. DIAGNOSTIC STUDIES/LAB DATA: This patient had a CT scan of the brain revealing postoperative changes from a left craniotomy and right side 2 clair holes. There are more calcifications in the area of the subdural hematoma on the left while there is resolution of previous right subdural hematoma. There is small area in the posterior frontal right lobe consistent with small hemorrhagic contusion surrounded by hyperdense area. ASSESSMENT: This is a very pleasant 72-year-old gentleman with reported head injury with CT scan findings consistent with right posterior frontal hemorrhagic contusion, on Pradaxa and a history of previous bilateral subdural hematoma evacuation. PLAN: The patient at this point has been admitted to the ICU by the hospitalist team. The patient was reported to have received his anticoagulation by the ED. We recommend repeat CT scan of the brain in the morning and Keppra for 7 days. I discussed an extent with the patient regarding CT scan findings and possibility of surgical intervention if there is extension of hemorrhagic foci in the brain. Thank you for allowing us to participate in the care of this patient. Please do not hesitate to contact our office in case you have any further questions or concerns regarding the care of this patient. [id number]/CPS #: [id number] MORIAH
[2018-05-06] MEDS ORDERED: levETIRAcetam TAB* 500 MG PO SCH (09:00)
[2018-05-06] MEDS ORDERED: Digoxin TAB* 0.25 MG PO SCH (09:00)
[2018-05-06] MEDS ORDERED: Metoprolol Tartrate TAB* 25 MG PO SCH (09:00)
[2018-05-06] MEDS ORDERED: Diltiazem CD CAP* 120 MG PO SCH (09:00)
[2018-05-06] MEDS ORDERED: Digoxin TAB* 0.125 MG PO SCH (12:00)
--- NOTE | 2018-05-06 14:04 | PN ---
Progress Note - Progress Note Date of Service: 05/06/18 SOAP: Subjective: [Pt seen and examined this morning at 0915. States that he started Pradaxa approximately one week ago for atrial fibrillation. He follows with Dr. Mcclure and was referred to a different provider in [place] for evaluation for possible ablation. He is planning on undergoing this procedure soon. Reports heavy object fell onto head last night and he was concerned for injury since he recently started the Pradaxa and has a history of SDH. He was admitted for observation. Feeling well this morning. Denies headache, nausea, vision change, dizziness, numbness, tingling, weakness and pain in the upper and lower extremities. Has not been up out of bed so unable to assess gait instability. Eating and drinking well. ] Objective: [ Vital Signs: Temp Pulse Resp BP Pulse Ox 98.5 F 59 16 138/90 98 05/06/18 12:00 05/06/18 12:01 05/06/18 12:01 05/06/18 12:01 05/06/18 12:01 General: Alert, sitting up in bed, NAD Neuro: Speech is clear and coherent. Able to answer all questions. CN II-CII intact. Strength 5/5 bilateral upper and lower extremities. Sensation intact throughout. No pronator drift. PERRL, EOMI. ] Assessment: [Stable. Follow up CT today shows improved right posterior frontal hemorrhagic contusion] Plan: [1. Discussed case with Dr. Machuca. 2. Discharge patient when clear by hospital medicine. 3. Follow up in office with Dr. Smallwood 4. Keppra 500mg PO BID x7 days 5. Recommend hold Pradaxa for at least 1 month.]
[2018-05-06 14:24] VITALS: BP 125/87
--- NOTE | 2018-05-06 23:50 | DS ---
AMENDED REPORT NOW INCLUDES COSIGNER DESIGNATION CC: Douglas Rodriguez NP; Dr. Bhavik Mcclure * DISCHARGE SUMMARY: DATE OF ADMISSION: 05/06/18 DATE OF DISCHARGE: 05/06/18 PRIMARY CARE PROVIDER: Douglas Rodriguez NP COMB CAPPER: Dr. Bhavik Mcclure. MY ATTENDING FOR TODAY: Dr. Agnes Smith.* (DICTATED BY PRINCESS SEBASTIAN NP) HOSPITAL COURSE: Please refer to admission H and P, but in short, this is a gentleman with history of atrial fibrillation, on Pradaxa, who sustained head trauma while he was at work. 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 The patient became concerned because he is on anticoagulation and he does have history of subdural hemorrhage in the past. He did have 2 procedures in the past, clair hole and an evacuation, and again he became concerned because he is currently on anticoagulation. He was seen by Dr. Machuca. Upon examination with CAT scan, at that time, Dr. Machuca said we would watch the patient in observation, admit to ICU, and then repeat CT scan. He was given Praxbind in the ED and he was clinically stable, neurologically intact, he did have a bit of headache. Again, as per Dr. Machuca, there was no intervention warranted. They appeared to have a small subdural that did not change and again neurologically intact. The patient was readied for discharge on 05/06/18 in the afternoon with the plan for starting Keppra b.i.d. and holding off on his Pradaxa for 30 days until he follows back up with Neurosurgery in 2 weeks. DISCHARGE DIAGNOSES: 1. Closed head trauma with small subdural hematoma. 2. History of atrial fibrillation, on anticoagulation. 3. History of sick sinus syndrome, with pacemaker. 4. History of coronary artery disease, stable. MEDICATIONS ON DISCHARGE: Include: 1. Tylenol 650 mg q.6 hours as needed. 2. Diltiazem CD 120 mg p.o. daily. 3. Digoxin 0.125 mg 2 tablets in the morning and 1 tablet at noon. 4. Metoprolol tartrate 12.5 mg p.o. b.i.d. 5. Keppra 500 mg p.o. b.i.d. for 7 days. 6. Pradaxa is currently on hold for the next 30 days. REVIEW OF SYSTEMS: On the day of discharge, the patient denies any fever, fatigue, or chills. No headache. No blurry vision. No shortness of breath, no chest pain. No nausea or vomiting. No abdominal pain. No neurologic complaints and no further constitutional complaints. PHYSICAL EXAMINATION: The patient is awake, alert, in no acute distress. Vital signs are blood pressure 125/87, heart rate 62, respiratory rate 18, O2 saturation 97% on room air, temperature is 98.5. HEENT: The patient is normocephalic. He does have some swelling posteriorly on the right at the base of the cranium. There are no open wounds or lacerations noted. Oral mucosa is moist. Tongue is midline. Neck is supple, nontender. No JVD noted. No carotid bruits auscultated. Cardiovascular: S1, S2 present. No murmurs, gallops, or rubs noted. Rate and rhythm are regular. He is paced on telemetry. Abdomen is soft, nontender, and nondistended. Positive bowel sounds in all 4 quadrants. is deferred. Musculoskeletal: There is no clubbing, no cyanosis, and no edema. He has full range of motion. Gross motor and sensation are intact. Neurologic: Grossly intact. No focal deficits. Psychiatric: Cooperative and appropriate. DIAGNOSTIC STUDIES/LAB DATA: WBCs 6.2, RBCs 4.48, hemoglobin 13.4, hematocrit 40, platelets 139. Sodium 137, potassium 3.7, chloride 106, CO2 of 26, BUN 22, creatinine 0.78, GFR 98.4, glucose 83, calcium 9.2. Bilirubin 0.80. LFTs within normal range. Digoxin level is 1.9. Alcohol level less than 10. INR was 1.07. Imaging: Initial CT of the brain dated 05/05/18 shows successful evacuation of a right subdural hematoma, a new hemorrhagic lesion seen in the posterior aspect of the right frontal lobe adjacent to the right occipital horn, previous left frontal craniotomy. Under the craniotomy flap, there is a dural thickening with calcification; this was seen on the prior CT study of 01/06/18 and is unchanged. Repeat CT of the brain dated 05/06/18 shows again evacuation of the right subdural hematoma, small intraparenchymal hematoma in the posterior right frontal lobe just adjacent to the atria of the right lateral ventricle is not significantly changed. DISPOSITION: The patient will be discharged to home. FOLLOWUPS: The patient was instructed to follow up with his primary care provider in the next 1 to 2 weeks. He can follow up with Cardiology on an as- needed basis and he should see Dr. Smallwood in the office within the next 2 weeks. DISCHARGE DIAGNOSES: 1. Status post closed head trauma with small subdural hematoma. 2. History of atrial fibrillation and pacemaker insertion. 3. Coronary artery disease with history of stents and myocardial infarction. Discharge medications as above. The patient was discharged in stable condition. All questions were answered. The patient stated understanding of his discharge instructions, followups, and medications. TIME SPENT: Thirty-five minutes on discharge planning. PRINCESS SEBASTIAN NP [id number]/[facility] #: [id number] MORIAH
== END 2018-05-06 15:48 | disposition home or self-care (01) ==
LOC: ED 20:17 → ICU 05-06 01:04 → INTOOBSV 05-06 01:04
PROVIDERS: ADMIT Pediatrics; ATTEND Internal Medicine
DX: S06.5X0A Traumatic subdural hemorrhage without loss of consciousness, initial encounter (principal); W22.8XXA Striking against or struck by other objects, initial encounter; Y92.9 Unspecified place or not applicable; R51 Headache; Z79.01 Long term (current) use of anticoagulants; I25.10 Atherosclerotic heart disease of native coronary artery without angina pectoris; I25.2 Old myocardial infarction; F17.210 Nicotine dependence, cigarettes, uncomplicated; Z95.0 Presence of cardiac pacemaker
CPT/HCPCS: 36415; 70450; 80053; 80162; 80320; 85025; 85610; 85730; 86850; 86900; 86901; 87641; 93005; 96374; 99285; A9270-GY; G0378; G0480

== ENCOUNTER 2019-01-01 18:26 | Emergency (ER) | payer MEDICARE ==
--- OUTSIDE RECORDS SUMMARY | 2019-01-01 18:55 | XMS REPORT | Continuity of Care Document ---
:1945 External Reference #:[id number] Author Name Bhavik Mcclure M.D. (transmitted by agent of provider Brisa Apple ) Address [address] [address] Care Team Providers Name Role Phone Douglas Rodriguez NP - Family Care Team Information Tree Trimming Line Technician [phone] Joe Fonseca MD - Cardiovascular Care Team Information Tree Trimming Line Technician [phone] Disease Problems Active Problems Provider Date Atrial fibrillation Jani Padilla II, M.D. Onset: 11/11/2017 Subdural hemorrhage following injury Jani Padilla II, M.D. Onset: 2017 without open intracranial wound AND with loss of consciousness Syncope and collapse Caroline Gasca M.D. Onset: 11/12/2017 Sinus node dysfunction Doe Arteaga MD Onset: 11/15/2017 Malaise and fatigue Beck Becerra N.P. Onset: 11/22/2017 Convalescence after surgery Efrain Smallwood M.D. Onset: 12/20/2017 Late effect of intracranial injury Jani Padilla II, M.D. 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 Essential hypertension NICK Pettit Onset: 01/08/2018 Social History Type Date Description Comments Sex Unknown ETOH Use Consumes 3 beers per day Recreational Drug Use Denies Drug Use Tobacco Use Start: Unknown Light tobacco smoker 1/4 pack per day (10 or fewer cigarettes/day) Smoking Status Reviewed: 12/08/18 Light tobacco smoker 1/4 pack per day (10 or fewer cigarettes/day) Exercise Type/Frequency Does not exercise but very physically active at work Allergies, Adverse Reactions, Alerts Description No Known Drug Allergies Medications Active Medications SIG Qnty Indications Ordering Date Provider Aspirin 81 1 by mouth every Bhavik Kip 12/08/2018 81mg day Raghav Mcclure Tablets DR Mancia Calcium take 1 tablet at 30tabs Bhavik Montes 12/08/2018 bedtime to start Raghav Mcclure 20mg Tablets 10.1.19 Centrum Silver 1 tab po daily Unknown 12/07/2018 50+Men 50+Men Tablets Clopidogrel 1 by mouth every Unknown 08/31/2018 Bisulfate day discontinue if 75mg Dr. Regalado agrees. Tablets Metoprolol Succinate 1/2 by mouth twice Unknown 06/15/2018 ER a day 50mg Tablets ER 24HR Acidophilus take one Unknown 100mg capsule/tablet Capsules daily History Medications Aspirin 1 tab by mouth Unknown 12/07/2018 - 325mg Tablets once a day 12/08/2018 Metoprolol Tartrate 1 [facility]2018 - 50mg daily Michael.DKip 12/08/2018 Tablets Medications Administered in Office Medication SIG Qnty Indications Ordering Provider Date Inj, Regadenoson, 0.1 MG Fernando Uriostegui, DO [facility] 07/08/2018 Injection Technetium TC 99M Fernando Uriostegui, DO [facility] 07/08/2018 Tetrofosmin, Per Unit Dose Up To 40 Millicuries Injection Technetium TC 99M Fernando Uriostegui, DO [facility] 07/08/2018 Tetrofosmin, Per Unit Dose Up To 40 Millicuries Injection Immunizations Description No Information Available Vital Signs Date Vital Result Comment 12/08/2018 8:08am Height 68 inches 5'8" Weight 161.00 lb with shoes/jacket Heart Rate 60 /min radial,regular BP Systolic Sitting 114 mmHg Ra, reg cuff BP Diastolic Sitting 72 mmHg Ra, reg cuff BP Systolic Standing 118 mmHg Ra, reg cuff BP Diastolic Standing 76 mmHg Ra, reg cuff BMI (Body Mass Index) 24.5 kg/m2 Ejection Fraction 60%-65% echo 11/12/17 07/20/2018 9:54am Height 68 inches 5'8" Weight 151.00 lb with shoes Heart Rate 68 /min regular BP Systolic Sitting 138 mmHg BP Diastolic Sitting 70 mmHg BP Systolic Standing 138 mmHg BP Diastolic Standing 80 mmHg BMI (Body Mass Index) 23.0 kg/m2 Ejection Fraction 60-65% Echocardiogram 11/12/17 Results Test Date Facility Test Result H/L Range Note CBC Auto 11/11/2018 [facility] White Blood 5.6 10^3/uL Normal 3.5-10.[address] [place] [address] [phone] Red Blood Count 4.61 10^6/uL Normal 4.18-5.48 Hemoglobin 14.3 g/dL Normal 14.0-18.0 Hematocrit 43 % Normal 42-52 Mean Corpuscular Volume 92 fL Normal 80-94 Mean Corpuscular Hemoglobin 31 pg Normal 27-31 Mean Corpuscular HGB Conc 34 g/dL Normal 31-36 Red Cell Distribution Width 15 % Normal 10-15 Platelet Count 163 10^3/uL Normal 150-450 Mean Platelet Volume 10.1 fL Normal 7.4-10.4 Abs Neutrophils 3.6 10^3/uL Normal 1.5-7.7 Abs Lymphocytes 1.1 10^3/uL Normal 1.0-4.8 Abs Monocytes 0.7 10^3/uL Normal 0-0.8 Abs Eosinophils 0.1 10^3/uL Normal 0-0.6 Abs Basophils 0.1 10^3/uL Normal 0-0.2 Abs Nucleated RBC 0.0 10^3/uL Granulocyte % 64.4 % Lymphocyte % 19.0 % Monocyte % 13.1 % Eosinophil % 2.4 % Basophil % 1.1 % Nucleated Red Blood Cells % 0.0 Lipid Panel - 11/11/2018 [facility] Creatine 300 U/L High 10- 223 [address] [place] [address] [phone] Comp Metabolic 11/11/2018 [facility] Sodium 136 Normal 135- [address] mmol/[place] [address] [phone] Potassium 4.5 mmol/L Normal 3.5-5.0 Chloride 103 mmol/L Normal 101-111 Co2 Carbon Dioxide 29 mmol/L Normal 22-32 Anion Gap 4 mmol/L Normal 2-11 Glucose 86 mg/dL Normal 70-100 Blood Urea Nitrogen 22 mg/dL Normal 6-24 Creatinine 0.85 mg/dL Normal 0.67-1.17 BUN/Creatinine Ratio 25.9 High 8-20 Calcium 9.4 mg/dL Normal 8.6-10.3 Total Protein 6.3 g/dL Low 6.4-8.9 Albumin 3.9 g/dL Normal 3.2-5.2 Globulin 2.4 g/dL Normal 2-4 Albumin/Globulin Ratio 1.6 Normal 1-3 Total Bilirubin 0.40 mg/dL Normal 0.2-1.0 Alkaline Phosphatase 72 U/L Normal 34-104 Alt 22 U/L Normal 7-52 Ast 28 U/L Normal 13-39 Egfr Non- 88.9 >60 Egfr 107.5 >60 2 Lipid Profile 11/11/2018 [facility] Triglycerides 117 mg/dL 3 (Trig/Chol/HDL) [address] [place] [address] [phone] Cholesterol 167 mg/dL 4 HDL Cholesterol 50.6 mg/dL 5 LDL Cholesterol 93 mg/dL 6 Laboratory test 11/11/2018 [facility] Digoxin < 0.3 ng/ml Low 0.8-2.0 7 finding [address] [place] [address] [phone] FASTING 2 Because ethnic data is not always readily available, this report includes an eGFR for both -Americans and non- Americans. The National Kidney Disease Education Program (NKDEP) does not endorse the use of the MDRD equation for patients that are not between the ages of 18 and 70, are , have extremes of body size, muscle mass, or nutritional status, or are non- or non-. According to the National Kidney Foundation, irrespective of diagnosis, the stage of the disease is based on the level of kidney function: Stage Description GFR(mL/min/1.73 m(2)) 1 Kidney damage with normal or decreased GFR 90 2 Kidney damage with mild decrease in GFR 60-89 3 Moderate decrease in GFR 30-59 4 Severe decrease in GFR 15-29 5 Kidney failure <15 (or dialysis) 3 Desirable: <150 Borderline High: 150-199 High: 200-499 Very High: >500 4 Desirable: <200 Borderline High: 200-239 High: >239 5 Low: <40 Desirable: 40-60 High: >60 6 Desirable: <100 Near Optimal: 100-129 Borderline High: 130-159 High: 160-189 Very High: >189 7 FASTING Procedures Date Code Description Status 12/08/2018 48411 EKG Tracing & Interpretation Completed 07/08/2018 50993 Interrogation Device Eval In Person W/DR Completed Analysis,Single,Dual,Mul 07/08/2018 09264 Stress Test Completed 07/08/2018 60770 Myocardial Perfusion Imaging Tomographic (Spect) Multiple Completed Studies 06/28/2018 65791 Pace Maker Eval W/Iterative Adjment Dual Lead Completed 06/28/2018 30783 Pace Maker Eval W/Iterative Adjment Dual Lead Completed Medical Devices Description No Information Available Encounters Type Date Location Provider Dx Diagnosis Office Visit 07/20/2018 [facility] Mei Landeros, I25.10 Athscl heart 10:00a N.P. disease of [place] coronary artery w/o ang pctrs I48.0 Paroxysmal atrial fibrillation I49.5 Sick sinus syndrome R94.31 Abnormal electrocardiogram [ECG] [EKG] Z95.0 Presence of cardiac pacemaker Z72.0 Tobacco use Office Visit 06/22/2018 7:[facility] Isamar Menon, R06.83 [facility] I48.91 Unspecified atrial fibrillation Assessments Date Code Description Provider 12/08/2018 I25.10 Atherosclerotic heart disease of [place] Bhavik Mcclure M.D. coronary artery with 12/08/2018 I48.0 Paroxysmal atrial fibrillation Bhavik Mcclure M.D. 12/08/2018 I49.5 Sick sinus syndrome Bhavik Mcclure M.D. 07/20/2018 I25.10 Atherosclerotic heart disease of [place] Mei Landeros, N.P. coronary artery with 07/20/2018 I48.0 Paroxysmal atrial fibrillation Mei Landeros, N.P. 07/20/2018 I49.5 Sick sinus syndrome Mei Landeros, N.P. 07/20/2018 R94.31 Abnormal electrocardiogram [ECG] [EKG] Mei Landeros N.P. 07/20/2018 Z95.0 Presence of cardiac pacemaker Mei Landeros, N.P. 07/20/2018 Z72.0 Tobacco use Mei Landeros, N.P. 07/08/2018 I49.5 Sick sinus syndrome Bhavik Mcclure M.D. 07/08/2018 I25.10 Atherosclerotic heart disease of [place] Fernando Uriostegui, DO [facility] coronary artery with 07/08/2018 I48.0 Paroxysmal atrial fibrillation Bhavik Mcclure M.D. 07/08/2018 I25.10 Atherosclerotic heart disease of [place] Bhavik Mcclure M.D. coronary artery with 07/08/2018 Z95.0 Presence of cardiac pacemaker Bhavik Mcclure M.D. 07/08/2018 I48.0 Paroxysmal atrial fibrillation Bhavik Mcclure M.D. 07/08/2018 I49.5 Sick sinus syndrome Bhavik Mcclure M.D. 07/08/2018 R94.31 Abnormal electrocardiogram [ECG] [EKG] Bhavik Mcclure M.D. 06/28/2018 Z95.0 Presence of cardiac pacemaker Bhavik Mcclure M.D. 06/28/2018 Z95.0 Presence of cardiac pacemaker Ica Pacer Schedule 06/28/2018 I48.0 Paroxysmal atrial fibrillation Ica Pacer Schedule 06/28/2018 I49.5 Sick sinus syndrome Ica Pacer Schedule 06/22/2018 R06.83 Snoring Isamar Menon MD 06/22/2018 I48.91 Unspecified atrial fibrillation Isamar Menon MD Plan of Treatment Future Appointment(s):02/09/2019 9:00 am - Mei Landeros, N.P. at [facility]12/08/2018 - Bhavik Mcclure M.D.I25.10 Atherosclerotic heart disease of [place] coronary artery withFollow up:ov Mei in 2 m ov JFM 8 mI48.0 Paroxysmal atrial dnywujuquyzzH00.5 Sick sinus syndrome Functional Status Description No Information Available Mental Status Description No Information Available Referrals Description No Information Available
--- OUTSIDE RECORDS SUMMARY | 2019-01-01 18:56 | XMS REPORT | Continuity of Care Document ---
:1945 External Reference #:[id number] Author Name Douglas Rodriguez N.P. 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 Tablets Day Acidophilus Unknown Capsules Metoprolol Succinate take 1 tablet by Unknown ER mouth two times 25mg Tablets ER 24HR a day Aspirin Adult Unknown 325mg Tablets Clopidogrel Bisulfate 1 by mouth every Unknown day 75mg Tablets Immunizations CPT Code Status Date Vaccine Lot # [id number] Given 07/12/2014 Tdap (Adacel) Ages 7 And Above Only [id number] Vital Signs Date Vital Result Comment 11/11/2018 8:06am Body Temperature 98.1 F Weight 157.00 lb Heart Rate 74 /min BP Systolic 122 mmHg BP Diastolic 68 mmHg Height 68 inches 5'8" O2 % BldC Oximetry 98 % BMI (Body Mass Index) 23.9 kg/m2 02/24/2018 11:39am Body Temperature 98.8 F Weight 149.38 lb Heart Rate 62 /min BP Systolic 120 mmHg BP Diastolic 62 mmHg O2 % BldC Oximetry 98 % Results Description No Information Available Procedures Description No Information Available Medical Devices Description No Information Available Encounters Type Date Location Provider Dx Diagnosis Office Visit 11/11/2018 Douglas Jacques, Z00.00 Encntr for general 8:30a N.P. adult medical exam w/o abnormal findings Z13.31 Encounter for screening for depression Assessments Date Code Description Provider 11/11/2018 Z00.00 Encounter for general adult medical Douglas Rodriguez N.P. examination without abnormal findings 11/11/2018 Z13.31 Encounter for screening for depression Douglas Rodriguez N.P. Plan of Treatment 11/11/2018 - Douglas Rodriguez N.P.Z00.00 Encounter for general adult medical examination without abnormal findingsComments:well malehealth promotion discussed at length including exercise,proper nutrition, sleep hygiene, adequate fluid intake, stress relief, safety and routine health sceening including skin, testicular/breast, and routine office PE's. He had labs drawn today from cardiology and will f/u resultshe will cont current meds (reviewed face to face today)and f/u cardiology as ahyqlrwH59.31 Encounter for screening for depressionComments:denies increased feelings depression/anxiety at this time Functional Status Description No Information Available Mental Status Description No Information Available Referrals Description No Information Available
--- OUTSIDE RECORDS SUMMARY | 2019-01-01 18:56 | XMS REPORT | Continuity of Care Document ---
:1945 External Reference #:[id number] Author Name Douglas Rodriguez N.P. 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 25mg Tablets ER 24HR Times A Day Diltiazem HCL Take One Tablet 30tabs Douglas Rodriguez, 05/04/2018 120mg Tablets By Mouth Every N.P. Day Metoprolol Tartrate take 1/2 tablet Dogulas Rodriguez, 03/28/2018 25mg by mouth twice N.P. Tablets a day Digoxin 3 by mouth Unknown 125mcg Tablets every day Levetiracetam 1 by mouth 60tabs Douglas Rodriguez, 500mg Tablets twice a day N.P. Flecainide Acetate 1/2 tab by Douglas Rodriguez, 100mg mouth every day N.P. Tablets Acidophilus Unknown Capsules Immunizations CPT Code Status Date Vaccine Lot # [id number] Given 07/12/2014 Tdap (Adacel) Ages 7 And Above Only [id number] Vital Signs Date Vital Result Comment 11/11/2018 [...] Medical Devices Description No Information Available Encounters Description No Information Available Assessments Description No Information Available Plan of Treatment No Information Available Functional Status Description No Information Available Mental Status Description No Information Available Referrals Description No Information Available
--- OUTSIDE RECORDS SUMMARY | 2019-01-01 18:56 | XMS REPORT | Continuity of Care Document ---
:1945 External Reference #:[id number] Author Name Douglas Rodriguez N.P. Address [address] [place] [address] Care Team Providers Name Role Phone Bhavik Mcclure - Cardiovascular Care Team Information Wood Ski Maker Disease Problems Active Problems Provider Date Benign [...] CPT Code Status Date Vaccine Lot # [id number] Given 07/12/2014 Tdap (Adacel) Ages 7 And Above Only [id number] Vital Signs Date Vital Result Comment 11/11/2018 [...] Available Encounters Description No Information Available Assessments Date Code Description Provider 11/11/2018 Z00.00 [...] face to face today)and f/u cardiology as zjbkgyyE03.31 Encounter for screening for depressionComments:denies increased feelings depression/anxiety at this time Functional Status Description No Information Available Mental Status Description No Information Available Referrals Description No Information Available
--- NOTE | 2019-01-01 19:36 | ED ---
Altered Mental Status - History Of Current Complaint Chief Complaint: EDHeadInjury Stated Complaint: HEADACHES/WEAKNESS/HEAD INJURY PER DAUGHTER Time Seen by Provider: 01/01/19 19:30 Hx Obtained From: Patient, Family/[employer] [place] Onset/Duration: Still Present Timing: Intermittent Severity Initially: Moderate Severity Currently: Moderate Character: Responsiveness Aggravating Factor(s): Nothing Alleviating Factor(s): Nothing Associated Signs And Symptoms: Positive: Weakness - Allergies/Home Medications Allergies/Adverse Reactions: Allergies Allergy/AdvReac Type Severity Reaction Status Date / Time No Known Allergies Allergy Verified 01/01/19 18:46 Home Medications: Home Medications Acidophilus 1 tab PO DAILY 01/01/19 [History Confirmed 01/01/19] Aspir-Low 1 tab PO DAILY 01/01/19 [History Confirmed 01/01/19] Atorvastatin* 20 mg PO DAILY 01/01/19 [History Confirmed 01/01/19] Multiple Vitamins 1 tab PO DAILY 01/01/19 [History Confirmed 01/01/19] PMH/Surg Hx/FS Hx/Imm Hx Endocrine/Hematology History: Reports: Hx Anticoagulant Therapy Denies: Hx Blood Disorders, Hx Blood Transfusions, Hx Bone Marrow Disease, Hx Diabetes, Hx Systemic Lupus Erythematosus, Hx Sickle Cell Disease, Hx Thyroid Disease, Hx Anemia, Hx Unexplained Bleeding, Other Endocrine/ Hematological Disorders Cardiovascular History: Reports: Hx Angioplasty - with 1 stent placed, Hx Atrial Fibrillation, Hx Auto Implanted Cardiovert Defib - 2017, Hx Myocardial Infarction, Hx Pacemaker/ICD - 10/2017, Other Cardiovascular Problems/Disorders - cardiac stent Denies: Hx Aneurysm, Hx Angina, Hx Cardiac Arrest, Hx Cardiomegaly, Hx Congestive Heart Failure, Hx Coronary Artery Disease, Hx Deep Vein Thrombosis, Hx Embolism, Hx Hypercholesterolemia, Hx Hypotension, Hx Hypertension, Hx Peripheral Vascular Disease, Hx Rheumatic Fever, Hx Syncope, Hx Valvular Heart Disease Respiratory History: Denies: Hx Asthma, Hx Chronic Bronchitis, Hx Chronic Obstructive Pulmonary Disease (COPD), Hx Cystic Fibrosis, Hx Lung Cancer, Hx Pleural Effusion, Hx Pneumonia, Hx Pulmonary Edema, Hx Pulmonary Embolism, Hx Seasonal Allergies, Hx Sleep Apnea - scheduled for sleep study, Other Respiratory Problems/Disorders GI History: Denies: Hx Cirrhosis, Hx Crohn's Disease, Hx Diverticulosis, Hx Gall Bladder Disease, Hx Gastroesophageal Reflux Disease, Hx Gastrointestinal Bleed, Hx Hiatal Hernia, Hx Irritable Bowel, Hx Jaundice, Hx Obstructive Bowel, Hx Ileostomy, Hx Pyloric Stenosis, Hx Ulcer, Other GI Disorders History: Denies: Hx Acute Renal Failure, Hx Benign Prostatic Hyperplasia, Hx Chronic Renal Failure, Hx Dialysis, Hx Kidney Infection, Hx Kidney Stones, Other Problems/Disorders Musculoskeletal History: Reports: Hx Back Problems, Other Musculoskeletal History - neck injury a couple of months ago Denies: Hx Arthritis, Hx Bursitis, Hx Congenital Bone Abnormalities, Hx Fibromyalgia, Hx Gout, Hx Orthopedic Injury, Hx Osteoporosis, Hx Scoliosis, Hx Tendonitis Sensory History: Reports: Hx Contacts or Glasses - nearsighted Denies: Hx Cataracts, Hx Eye Injury, Hx Eye Prosthesis, Hx Glaucoma, Hx Legally Blind, Hx Macular Degeneration, Hx Vision Problem, Hx Deafness, Hx Hearing Aid, Hx Hearing Problem, Other Sensory Impairments Opthamlomology History: Reports: Hx Contacts or Glasses - nearsighted Denies: Hx Cataracts, Hx Eye Injury, Hx Eye Prosthesis, Hx Glaucoma, Hx Legally Blind, Hx Macular Degeneration, Hx Vision Problem, Other Sensory Impairments EENT History: Denies: Hx Deafness Neurological History: Reports: Hx Headaches, Other Neuro Impairments/Disorders - subdural hematoma and evacuation of same Denies: Hx Dementia, Hx Developmental Delay, Hx Migraine, Hx Nerve Disease, Hx Seizures, Hx Spinal Cord Injury, Hx Transient Ischemic Attacks (TIA) Psychiatric History: Reports: Hx Substance Abuse - ETOH no drinking since diagnosis of a fib Denies: Hx Anxiety, Hx Attention Deficit Hyperactivity Disorder, Hx Eating Disorder, Hx Depression, Hx Panic Disorder, Hx Post Traumatic Stress Disorder, Hx Inpatient Treatment, Hx Community Mental Health Tx, Hx Schizophrenia, Hx Bipolar Disorder, Hx Suicide Attempt, Hx of Violent Episodes Against Others, Other Psychiatric Issues/Disorders - Cancer History Hx Chemotherapy: No Hx Radiation Therapy: No Hx Palliative Cancer Treatment: No - Surgical History Surgery Procedure, Year, and Place: appendectomy, heart stent,. Subdural hematoma evacuation-2017 Hx Anesthesia Reactions: No Infectious Disease History: No Infectious Disease History: Reports: Hx Shingles Denies: Hx Clostridium Difficile, Hx Hepatitis, Hx Human Immunodeficiency Virus (HIV), Hx of Known/Suspected MRSA, Hx Tuberculosis, History Other Infectious Disease, Traveled Outside the [place] in Last 30 Days - Family History Known Family History: Positive: Cardiac Disease Negative: Hypertension, Diabetes - Social History Alcohol Use: Rare Alcohol Amount: 6 beers/day Hx Substance Use: No Substance Use Type: Reports: None Hx Tobacco Use: Yes Smoking Status (MU): Light Every Day Tobacco Smoker Type: Cigarettes Amount Used/How Often: 1/2 ppd x40 years Have You Smoked in the Last Year: Yes Review of Systems Constitutional: Negative Eyes: Negative ENT: Negative Cardiovascular: Negative Respiratory: Negative Positive: Vomiting, Nausea Genitourinary: Negative Musculoskeletal: Negative Skin: Negative Positive: Headache Psychological: Normal All Other Systems Reviewed And Are Negative: Yes Physical Exam - Summary Physical Exam Summary: Neuro exam normal. Patient alert and oriented 4. Triage Information Reviewed: Yes Vital Signs On Initial Exam: Initial Vitals Temp Pulse Resp BP Pulse Ox 98.4 F 69 16 140/88 97 01/01/19 18:40 01/01/19 18:40 01/01/19 18:40 01/01/19 18:40 01/01/19 18:40 Vital Signs Reviewed: Yes Appearance: Positive: Well-Appearing Skin: Positive: Warm Head/Face: Positive: Normal Head/Face Inspection Eyes: Positive: Normal ENT: Positive: Normal ENT inspection Neck: Positive: Supple Respiratory/Lung Sounds: Positive: Clear to Auscultation Cardiovascular: Positive: Normal Abdomen Description: Positive: Nontender Musculoskeletal: Positive: Normal Neurological: Positive: Normal Psychiatric: Positive: Normal AVPU Assessment: Alert - Stella Coma Scale Best Eye Response: 4 - Spontaneous Best Motor Response: 6 - Obeys Commands Best Verbal Response: 5 - Oriented Coma Scale Total: 15 Procedures - Sedation Patient Received Moderate/Deep Sedation with Procedure: No Diagnostics - Vital Signs Vital Signs Temp Pulse Resp BP Pulse Ox 01/01/19 18:40 98.4 F 69 16 140/88 97 - Laboratory Result Diagrams: 01/01/19 19:56 01/01/19 19:56 Lab Statement: Any lab studies that have been ordered have been reviewed, and results considered in the medical decision making process. Altered Mental Statu Course/Dx - Course Course Of Treatment: Patient with history of head injury 6 days ago complains of fatigue, persistent mild headache, decrease in balance 5 days. Patient was hit on left forehead by a swinging machinery. No loss of consciousness, vision change, N/V, altered mental status at the time. Symptoms have developed over the past 5 days. Headache described as mild, bilateral frontal headache. Denies prior history of headaches. Family states patient is a little slower to respond. Patient states he is less sure of his balance now. Patient is on Plavix, has history of chronic subdural hematoma, and history of brain bleed with trauma. Denies fever, cough, sore throat, CP, SOB, N/V/V abdominal pain, change in urine, change in BM, speech change, facial droop, unilateral weakness. Medical history is chronic subdural hematoma, A. fib, CAD. Vital signs within normal limits. Labs unremarkable. Digoxin subtherapeutic level. CT brain negative for acute process. EKG sinus rhythm, heart rate 60, normal P axis. - Diagnoses Provider Diagnoses: Concussion Discharge ED - Sign-Out/Discharge Documenting (check all that apply): Patient Departure - Discharge Plan Condition: Stable Disposition: HOME Prescriptions: Meclizine TAB* [Antivert 12.5 TAB*] 25 mg PO TID 7 Days #21 tab Patient Education Materials: Concussion (ED) Referrals: Douglas Rodriguez NP [Primary Care Provider] - Additional Instructions: Rest. Tylenol for headaches. Avoid activities where there is risk of repeat head injury. Symptoms will come and go but should improve within a couple weeks. Return to the ED for any worsening symptoms. - Billing Disposition and Condition Condition: STABLE Disposition: Home
[2019-01-01 20:03] LABS: ABS Basophils 0.1 10^3/ul (0-0.2); ABS Eosinophils 0.2 10^3/ul (0-0.6); ABS Lymphocytes 1.3 10^3/ul (1.0-4.8); ABS Monocytes 0.6 10^3/ul (0-0.8); ABS Neutrophils 4.2 10^3/ul (1.5-7.7); Hematocrit 40 % (42-52); Hemoglobin 13.7 g/dL (14.0-18.0); Lymphocyte % 20.5 %; Mean Corpuscular HGB Conc 34 g/dL (31-36); Mean Corpuscular Hemoglobin 32 pg (27-31); Mean Corpuscular Volume 94 fL (80-94); Mean Platelet Volume 9.6 fL (7.4-10.4); Nucleated Red Blood Cells % 0.1; Platelet Count 157 10^3/uL (150-450); Red Blood Count 4.31 10^6 /uL (4.18-5.48); Red Cell Distribution Width 14 % (10-15); White Blood Count 6.3 10^3/uL (3.5-10.8)
[2019-01-01 20:21] LABS: ALT 22 U/L (7-52); AST 26 U/L (13-39); Albumin 3.8 g/dL (3.2-5.2); Albumin/Globulin Ratio 1.5 (1-3); Alkaline Phosphatase 57 U/L (34-104); Anion Gap 3 mmol/L (2-11); BUN/Creatinine Ratio 24.7 (8-20); Blood Urea Nitrogen 23 mg/dL (6-24); C Reactive Protein 1.54 mg/L (<8.01); CO2 Carbon Dioxide 26 mmol/L (22-32); Calcium 9.2 mg/dL (8.6-10.3); Chloride 108 mmol/L (101-111); EGFR African American 96.9 (>60); EGFR Non-African American 80.1 (>60); Globulin 2.5 g/dL (2-4); Glucose 93 mg/dL (70-100); Potassium 4.4 mmol/L (3.5-5.0); Sodium 137 mmol/L (135-145); Total Protein 6.3 g/dL (6.4-8.9)
[2019-01-01 20:39] LABS: Digoxin < 0.3 ng/ml (0.8-2.0)
[2019-01-01 20:52] LABS: TSH (Thyroid Stimulating Horm) 1.02 mcIU/mL (0.34-5.60)
[2019-01-01 21:33] LABS: Urine Bacteria Absent (Absent); Urine Red Blood Cell Absent (Absent); Urine White Blood Cell Absent (Absent)
[2019-01-01 21:37] LABS: Urine Color Colorless
[2019-01-01 21:38] LABS: Urine Appearance Clear; Urine Bilirubin Negative (Negative); Urine Blood Negative (Negative); Urine Glucose Negative (Negative); Urine Ketones Negative (Negative); Urine Nitrite Negative (Negative); Urine Protein Negative (Negative); Urine Specific Gravity 1.015 (1.010-1.030); Urine Urobilinogen Negative (Negative)
[2019-01-01 21:49] VITALS: BP 150/94
== END 2019-01-01 21:48 | disposition home or self-care (01) ==
LOC: ED 18:26
DX: S06.0X9A Concussion with loss of consciousness of unspecified duration, initial encounter (principal); W20.8XXA Other cause of strike by thrown, projected or falling object, initial encounter; Y92.9 Unspecified place or not applicable; F17.210 Nicotine dependence, cigarettes, uncomplicated; I48.91 Unspecified atrial fibrillation; Z95.810 Presence of automatic (implantable) cardiac defibrillator; I25.2 Old myocardial infarction; Z79.02 Long term (current) use of antithrombotics/antiplatelets; Z95.5 Presence of coronary angioplasty implant and graft
CPT/HCPCS: 36415; 70450; 80053; 80162; 81003; 82140; 83605; 84443; 84484; 85025; 86140; 93005; 99282

== ENCOUNTER 2019-04-22 07:10 | Emergency (ER) | payer MEDICARE, OTHER ==
--- NOTE | 2019-04-22 07:14 | UC ---
[facility] HPI - HPI Summary HPI Summary: Patient is 73 year old male, who present today to the urgent care with dental pain for past 5 days. He reports that he bit on a hard candy on Wednesday and now has pain and swelling upper left side of mouth. His pain is slightly improved but has started noticing swelling locally in the area and the upper jaw. No difficulty swallowing Denies any fever, chills, cough chest pain or shortness of breath . Denies any abdominal pain , nausea or vomiting , diarrhea or constipation. - History of Current Complaint Stated Complaint: TOOTH COMP Time Seen by Provider: 04/22/19 07:12 Hx Obtained From: Patient - Allergies/Home Medications Allergies/Adverse Reactions: Allergies Allergy/AdvReac Type Severity Reaction Status Date / Time No Known Allergies Allergy Verified 04/22/19 07:26 Home Medications: Home Medications Digoxin 125 mcg PO BID 04/22/19 [History Confirmed 04/22/19] PMH/Surg Hx/FS Hx/Imm Hx - Additional Past Medical History Additional PMH: Past Medical History : A. fib, pacemaker Past Surgical History: Appendectomy, heart stent placement, subdural hematoma have evacuation in 2018 Family History : non contributory Social History : Drinks beer, daily smoker, no drug use. Previously Healthy: Yes Other History Of: Anticoagulant Therapy - Surgical History Surgical History: Yes Surgery Procedure, Year, and Place: appendectomy, heart stent,. Subdural hematoma evacuation-2018 - Family History Known Family History: Positive: Cardiac Disease, Non-Contributory Negative: Hypertension, Diabetes - Social History Alcohol Use: Rare Alcohol Amount: 6 beers/day Substance Use Type: None Smoking Status (MU): Light Every Day Tobacco Smoker Type: Cigarettes Amount Used/How Often: 1/2 ppd x40 years Have You Smoked in the Last Year: Yes Household Exposure Type: Cigarettes - Immunization History Most Recent Influenza Vaccination: UNK Most Recent Pneumonia Vaccination: Never Review of Systems All Other Systems Reviewed And Are Negative: Yes Constitutional: Positive: Negative Skin: Positive: Negative Eyes: Positive: Negative ENT: Positive: Dental Pain - Tooth #9 Respiratory: Positive: Negative Cardiovascular: Positive: Negative Gastrointestinal: Positive: Negative Genitourinary: Positive: Negative Motor: Positive: Negative Neurovascular: Positive: Negative Musculoskeletal: Positive: Negative Neurological: Positive: Negative Psychological: Positive: Negative Is Patient Immunocompromised?: No Physical Exam - Summary Physical Exam Summary: Vital Signs Reviewed: Yes A+Ox3, no distress Eyes: Conjunctiva Clear ENT: Hearing grossly normal. There is mild swelling of the left maxillary area when compared to the right side. Tenderness to palpation at the left upper gingiva. Tenderness to percussion on tooth #9 . No fracture of the tooth noted. Appears to have caries. neck: supple Respiratory: Positive: No respiratory distress, No accessory muscle use Cardiovascular: skin color reflect adequate perfusion Musculoskeletal Exam: [place] x 4 without difficulty Neurological: Positive: Alert, ambulatory without difficulty Psychological: Positive: Normal Response To Family Skin: Positive: no rash, no ecchymosis Triage Information Reviewed: Yes Vital Signs Reviewed: Yes Dental Complaint Course/Dx - Course Course Of Treatment: During the visit today, we discussed the findings and further plan to treat with antibiotics and follow-up with the dentist. I will prescribe the medication to the pharmacy . Patient expressed understanding . - Differential Dx/Diagnosis Provider Diagnosis: Gingivostomatitis, Dental abscess Discharge ED - Sign-Out/Discharge Documenting (check all that apply): Patient Departure All imaging exams completed and their final reports reviewed: No Studies - Discharge Plan Condition: Stable Disposition: HOME Prescriptions: Amoxicillin/Clavulanate TAB* [Augmentin TAB 875*] 875 mg PO BID 10 Days #20 tab Patient Education Materials: Dental Abscess (ED), Toothache (ED) Referrals: Douglas Rodriguez NP [Primary Care Provider] - If Needed Additional Instructions: Please start taking the medication as prescribed to the pharmacy . Follow up with dentist in 2-3 days, list of local dentist provided Take Tylenol or ibuprofen as needed for pain. Patients blood pressure slightly high in Urgent care today and the hypertensive range , plan follow up with PCP for better control within 4 weeks Return to Urgent care / ER if symptoms get worse. - Billing Disposition and Condition Condition: STABLE Disposition: Home
[2019-04-22 07:25] VITALS: BP 125/67
== END 2019-04-22 07:43 | disposition home or self-care (01) ==
LOC: UCCORT 07:10
DX: K04.7 Periapical abscess without sinus (principal); K05.10 Chronic gingivitis, plaque induced; I48.91 Unspecified atrial fibrillation; F17.210 Nicotine dependence, cigarettes, uncomplicated; Z79.899 Other long term (current) drug therapy; Z95.0 Presence of cardiac pacemaker
CPT/HCPCS: 99212; G0463

== ENCOUNTER 2022-03-09 10:50 | Inpatient (IN) ==
[2022-03-09] MEDS ORDERED: Heparin - STEMI 5,000 UNITS/ML 1 ml VIAL IV ONE (10:56)
[2022-03-09] MEDS ORDERED: Ticagrelor 60 mg TAB (NF) PO ONE (11:01)
[2022-03-09 11:15] LABS: ABS Basophils 0.1 10^3/ul (0-0.2); ABS Eosinophils 0.1 10^3/ul (0-0.6); ABS Lymphocytes 1.3 10^3/ul (1.0-4.8); ABS Monocytes 0.5 10^3/ul (0-0.8); ABS Neutrophils 8.5 10^3/ul (1.5-7.7); Eosinophil % 0.6 %; Hematocrit 40 % (42-52); Lymphocyte % 12.6 %; Mean Corpuscular HGB Conc 33 g/dL (31-36); Mean Corpuscular Hemoglobin 30 pg (27-31); Mean Corpuscular Volume 90 fL (80-94); Mean Platelet Volume 9.9 fL (7.4-10.4); Platelet Count 145 10^3/uL (150-450); Red Cell Distribution Width 14 % (10-15); White Blood Count 10.5 10^3/uL (3.5-10.8)
[2022-03-09 11:25] LABS: Activated Partial Thrombo Time 26.6 seconds (26.0-38.0); INR 1.13 (0.88-1.18)
[2022-03-09] MEDS ORDERED: Heparin 5000 UNITS/ML 1 mL VIAL IV SCH (12:00)
[2022-03-09] MEDS ORDERED: Eptifibatide IV (Load dose) 2 MG/ML 10 ml VIAL ONE ×2 (12:11→12:20)
[2022-03-09] MEDS ORDERED: fentaNYL 100 mcg/2 ml 50 MCG/ML VIAL ONE ×2 (12:15→12:27)
[2022-03-09 12:17] LABS: Albumin 3.8 g/dL (3.2-5.2); Albumin/Globulin Ratio 1.7 (1-3); Calcium 8.6 mg/dL (8.6-10.3); Globulin 2.3 g/dL (2-4); Magnesium 1.9 mg/dL (1.9-2.7); Potassium 4.1 mmol/L (3.5-5.0); Total Bilirubin 0.4 mg/dL (0.2-1.0); Total Protein 6.1 g/dL (6.4-8.9); eGFR CKD-EPI 80.9 (>60)
[2022-03-09] MEDS ORDERED: Midazolam 5 mg/5 ml VIAL 1 mg/ml 5 ml VIAL (5 mg) ONE (12:25)
[2022-03-09] MEDS ORDERED: Ondansetron 4 mg VIAL 2 MG/ML 2 ml VIAL IV PRN (12:27)
[2022-03-09] MEDS ORDERED: nitroGLYCERIN DRIP 25,000 MCG/250 ML BTL ONE (12:44)
[2022-03-09] MEDS ORDERED: Heparin 2 UNITS/ML 1000 mls 2,000 ML IV ONE (12:44)
[2022-03-09] MEDS ORDERED: Heparin 1,000 UNIT/ML 10 ml (10,000 UNITS) CATHLAB/DIALYSIS ONE (12:44)
[2022-03-09] MEDS ORDERED: Lidocaine 1% MPF 5 ML VIAL ONE (12:44)
[2022-03-09] MEDS ORDERED: Iohexol 350 (CONTRAST) 100 ML PAK IV ONE (12:45)
[2022-03-10 04:45] LABS: ABS Eosinophils 0.1 10^3/ul (0-0.6); ABS Lymphocytes 0.7 10^3/ul (1.0-4.8); ABS Monocytes 0.6 10^3/ul (0-0.8); ABS Neutrophils 7.8 10^3/ul (1.5-7.7); Hematocrit 40 % (42-52); Hemoglobin 13.5 g/dL (14.0-18.0); Lymphocyte % 7.4 %; Mean Corpuscular HGB Conc 34 g/dL (31-36); Mean Corpuscular Hemoglobin 30 pg (27-31); Mean Corpuscular Volume 90 fL (80-94); Mean Platelet Volume 10.1 fL (7.4-10.4); Nucleated Red Blood Cells % 0.1; Platelet Count 135 10^3/uL (150-450); Red Blood Count 4.46 10^6 /uL (4.18-5.48); Red Cell Distribution Width 14 % (10-15); White Blood Count 9.2 10^3/uL (3.5-10.8)
[2022-03-10 05:25] LABS: Albumin 3.4 g/dL (3.2-5.2); Albumin/Globulin Ratio 1.6 (1-3); Calcium 8.1 mg/dL (8.6-10.3); Globulin 2.1 g/dL (2-4); HDL Cholesterol 46.9 mg/dL; Potassium 4.4 mmol/L (3.5-5.0); Total Bilirubin 0.7 mg/dL (0.2-1.0); Total Protein 5.5 g/dL (6.4-8.9); eGFR CKD-EPI 90.9 (>60)
[2022-03-10 06:13] LABS: Magnesium 1.9 mg/dL (1.9-2.7)
[2022-03-11 10:55] VITALS: BP 108/69
== END 2022-03-11 12:35 | disposition home or self-care (01) | DRG 246 ==
LOC: ED 10:50 → CHICATH 11:16 → ICU 11:16 → MEDTELE 03-10 19:03
PROVIDERS: ADMIT Emergency Medicine; ATTEND Internal Medicine